=== PATIENT | female | born 1975 | race Two or more races ===

== ENCOUNTER 2017-01-27 12:57 | Emergency (ER) | payer OTHER ==
[2017-01-27 13:06] VITALS: TEMP 97.8; BMI 30.7
--- NOTE | 2017-01-27 13:54 | PDOC ---
History of Present Illness - General History Source: Patient Exam Limitations: No Limitations - History of Present Illness Initial Comments: 01/27/17 15:04 The patient is a 41 year old female with a significant past medical history of IDDM and hypertension, who presents to the ER with nausea, vomiting, and diarrhea for 12 hours. Patient states she had three episodes of nonbilious/ nonbloody vomiting of food particles. Patient also reports three episodes of diarrhea. She complains of associated epigastric pain but is not able to describe the pain. Denies fever, chills, cough Denies lightheadedness Denies headache Denies chest pain Denies hematochezia, melena, or hematemesis. <Ivis Martinez - Last Filed: 01/27/17 15:20> - General History Source: Patient, Old Records Exam Limitations: No Limitations <Maricruz Rhodes - Last Filed: 01/27/17 16:36> - General Chief Complaint: Pain Stated Complaint: VOMITING/BLOOD SUGAR PROBLEM Time Seen by Provider: 01/27/17 13:54 Past History <Ivis Martinez - Last Filed: 01/27/17 15:20> - Past Medical History Diabetes: Yes HTN: Yes - Immunization History Td Vaccination: Yes Immunization Up to Date: Yes - Psycho/Social/Smoking Cessation Hx Anxiety: No Suicidal Ideation: No Smoking Status: No Smoking History: Never smoked Years of Tobacco Use: 0 Have you smoked in the past 12 months: No Number of Cigarettes Smoked Daily: 1 Cigars Per Day: 0 Information on smoking cessation initiated: No Hx Alcohol Use: No Drug/Substance Use Hx: No Substance Use Type: None Hx Substance Use Treatment: No <Maricruz Rhodes - Last Filed: 01/27/17 16:36> - Past Medical History Allergies/Adverse Reactions: Allergies Allergy/AdvReac Type Severity Reaction Status Date / Time acetaminophen Allergy Intermediate Swelling Verified 01/27/17 13:06 Home Medications: Ambulatory Orders Gemfibrozil [Lopid -] 600 mg PO TID 01/27/17 Glipizide [Glucotrol -] 20 mg PO DAILY 01/27/17 Insulin Glargine,Hum.rec.anlog [Lantus (nf)] 50 units SQ BID 01/27/17 Metformin HCl [Glucophage -] 500 mg PO BID 01/27/17 Review of Systems - Review of Systems Able to Perform ROS?: Yes Comments:: 01/27/17 15:04 GENERAL/CONSTITUTIONAL: No fever or chills. No weakness. HEAD, EYES, EARS, NOSE AND THROAT: No change in vision. No ear pain or discharge. No sore throat. CARDIOVASCULAR: No chest pain or shortness of breath. RESPIRATORY: No cough, wheezing, or hemoptysis. GASTROINTESTINAL: (+) nausea (+) vomiting (+) diarrhea (+) abdominal pain. No constipation. GENITOURINARY: No dysuria, frequency, or change in urination. MUSCULOSKELETAL: No joint or muscle swelling or pain. No neck or back pain. SKIN: No rash NEUROLOGIC: No headache, vertigo, loss of consciousness, or change in strength/ sensation. ENDOCRINE: No increased thirst. No abnormal weight change. HEMATOLOGIC/LYMPHATIC: No anemia, easy bleeding, or history of blood clots. ALLERGIC/IMMUNOLOGIC: No hives or skin allergy. <Uts,Ivis - Last Filed: 01/27/17 15:20> *Physical Exam - Vital Signs Last Vital Signs Temp Pulse Resp BP Pulse Ox 97.8 F 82 18 131/76 100 01/27/17 13:03 01/27/17 13:03 01/27/17 13:03 01/27/17 13:03 01/27/17 13:03 - Physical Exam Comments: 01/27/17 15:05 GENERAL: Awake, alert, and fully oriented, in no acute distress HEAD: No signs of trauma EYES: PERRLA, EOMI, sclera anicteric, conjunctiva clear ENT: Auricles normal inspection, hearing grossly normal, nares patent, oropharynx clear without exudates. Moist mucosa NECK: Normal ROM, supple, no lymphadenopathy, JVD, or masses LUNGS: Breath sounds equal, clear to auscultation bilaterally. No wheezes, and no crackles HEART: Regular rate and rhythm, normal S1 and S2, no murmurs, rubs or gallops ABDOMEN: Mild epigastric tenderness on palpation. Soft, normoactive bowel sounds. No guarding, no rebound. No masses EXTREMITIES: Normal range of motion, no edema. No clubbing or cyanosis. No cords, erythema, or tenderness NEUROLOGICAL: Cranial nerves II through XII grossly intact. Normal speech, normal gait SKIN: Warm, Dry, normal turgor, no rashes or lesions noted. <Ivis Martinez - Last Filed: 01/27/17 15:20> - Vital Signs Last Vital Signs Temp Pulse Resp BP Pulse Ox 97.8 F 82 18 131/76 100 01/27/17 13:03 01/27/17 13:03 01/27/17 13:03 01/27/17 13:03 01/27/17 13:03 <Maricruz Rhodes - Last Filed: 01/27/17 16:36> ED Treatment Course - LABORATORY CBC & Chemistry Diagram: 01/27/17 14:20 01/27/17 14:20 - ADDITIONAL ORDERS Additional order review: 01/27/17 14:20 RBC 4.50 MCV 82.9 MCHC 33.8 RDW 14.3 MPV 6.9 L Neutrophils % 69.8 D Lymphocytes % 25.0 D Monocytes % 3.8 Eosinophils % 0.8 Basophils % 0.6 - Medications Given in the ED: ED Medications Discontinued Medications Generic Name Dose Route Start Last Admin Trade Name Jane PRN Reason Stop Dose Admin Ondansetron HCl 4 mg 01/27/17 14:11 01/27/17 14:22 Zofran Injection IVPUSH 01/27/17 14:12 4 mg ONCE ONE Administration <Ivis Martinez - Last Filed: 01/27/17 15:20> - LABORATORY CBC & Chemistry Diagram: 01/27/17 14:20 01/27/17 14:20 <Maricruz Rhodes - Last Filed: 01/27/17 16:36> Medical Decision Making - Medical Decision Making 01/27/17 14:12 41-year-old female with history of diabetes, status post cholecystectomy who presents to the emergency Department with complaints of epigastric pain, vomiting and diarrhea. Differential diagnosis includes but is not limited to: Pancreatitis, gastroenteritis, colitis, dehydration, DKA, uncontrolled diabetes , electrolyte abnormality, toxic/metabolic derangement. Plan: 1. Labs 2. IV fluids for hydration 3. Antiemetics 4. EKG 5. Observe and reevaluate 01/27/17 16:32 Addendum: Labs are reviewed and are noted in the EMR. EKG shows normal sinus rhythm at 70 bpm normal axis intervals and no acute ST segment changes. The patient tolerated by mouth with some nausea but no vomiting and no longer has abdominal pain. The plan is to send the patient home. Clear liquids and advance diet slowly. Follow-up with primary care physician tomorrow morning and return to the emergency department if symptoms persist, worsen, or new symptoms arise. <Maricruz Rohdes - Last Filed: 01/27/17 16:36> *DC/Admit/Observation/Transfer - Attestations Scribe Attestion: 01/27/17 15:05 Documentation prepared by Ivis Martinez, acting as medical administrative for Maricruz Rhodes MD. <Ivis Martinez - Last Filed: 01/27/17 15:20> - Discharge Dispostion Admit: No - Attestations Physician Attestion: 01/27/17 14:17 I, Dr. Maricruz Rhodes, attest that the scribes documentation that appears above has been prepared under my direction and personally reviewed by me in its entirety. I confirmed that the note above accurately reflects all work, treatment, procedures, and medical decision-making performed by me. <Maricruz Rhodes - Last Filed: 01/27/17 16:36> Diagnosis at time of Disposition: Epigastric pain, Nausea vomiting and diarrhea - Discharge Dispostion Disposition: HOME Condition at time of disposition: Stable - Referrals Referrals: Nalini Alcocer MD [Primary Care Provider] - - Patient Instructions Printed Discharge Instructions: DI for Vomiting -- Adult, Diarrhea Additional Instructions: Maintain hydration with clear liquids. Anything that you can see. You may drink. Please follow-up with your primary care physician tomorrow and return to the emergency department if your symptoms persist, worsen, or new symptoms arise.
[2017-01-27] MEDS ORDERED: SODIUM CHLORIDE 1,000 ML IV STA (14:11)
[2017-01-27] MEDS ORDERED: ONDANSETRON 4 MG/2 ML VIAL IVPUSH ONE ×2 (14:11→16:34)
[2017-01-27] MEDS ORDERED: ONDANSETRON 4 MG/2 ML VIAL ONE ×2 (14:23→17:22)
[2017-01-27 14:40] LABS: BASOPHIL 0.6 % (0-2.0); EOSINOPHIL 0.8 % (0-4.5); MCHC 33.8 g/dl (32.0-36.0); MEAN CELL VOLUME 82.9 fl (80-96); MEAN PLT VOLUME 6.9 fl (7.5-11.1); NEUTROPHILS 69.8 % (42.8-82.8); PLATELET COUNT 250 K/MM3 (134-434); RDW 14.3 % (11.6-15.6); WHITE BLOOD COUNT 8.6 K/mm3 (4.0-10.0)
[2017-01-27 15:03] LABS: ALBUMIN 3.5 g/dl (3.4-5.0); ALK PHOS 114 U/L (45-117); ANION GAP 11 (8-16); BILIRUBIN,TOTAL 0.6 mg/dL (0.2-1.0); CALCIUM 8.8 mg/dL (8.5-10.1); CO2 26 mmol/L (21-32); COCKROFT - GAULT 128.5115; CREATININE 0.7 mg/dL (0.55-1.02); GLUCOSE,RANDOM 274 mg/dL (74-106); PHOSPHOROUS 2.7 mg/dL (2.5-4.9); SGOT/AST 19 U/L (15-37); SGPT/ALT 34 U/L (12-78); TOT PROT 6.7 g/dl (6.4-8.2); TROPONIN I < 0.02 ng/ml (0.00-0.05)
[2017-01-27 15:26] LABS: ACETONE SERUM NEGATIVE (NEGATIVE)
[2017-01-27 17:28] VITALS: BP 122/60; PULSE 60
--- NOTE | 2017-01-28 17:13 | EKG ---
Test Reason : Blood Pressure : / mmHG Vent. Rate : 072 BPM Atrial Rate : 072 BPM P-R Int : 152 ms QRS Dur : 078 ms QT Int : 450 ms P-R-T Axes : 033 017 016 degrees QTc Int : 492 ms NORMAL SINUS RHYTHM LOW VOLTAGE QRS PROLONGED QT ABNORMAL ECG WHEN COMPARED WITH ECG OF 09-FEB-2014 10:24, NO SIGNIFICANT CHANGE WAS FOUND Confirmed by KARTIK CHAVARRIA MD ([id number]) on 01/28/2017 5:13:31 PM Referred By: Confirmed By:KARTIK CHAVARRIA MD
== END 2017-01-27 17:29 | disposition home or self-care (01) ==
LOC: JER 12:57
PROC: 3E033GC Introduction of Other Therapeutic Substance into Peripheral Vein, Percutaneous Approach (ICD-10-PCS; principal; 2017-01-27)
DX: R10.13 Epigastric pain (principal); R11.2 Nausea with vomiting, unspecified; E11.9 Type 2 diabetes mellitus without complications; Z79.4 Long term (current) use of insulin; Z79.84 Long term (current) use of oral hypoglycemic drugs; I10 Essential (primary) hypertension
CPT/HCPCS: 36415; 71010-TC; 80053; 82009; 82550; 82553; 83690; 83735; 84100; 84484; 85025; 93005; 93010; 96374; 96376; 99283-25

== ENCOUNTER 2017-06-19 09:50 | Emergency (ER) | payer OTHER ==
[2017-06-19 09:59] VITALS: BP 142/90; PULSE 73; TEMP 98.2; BMI 30.5
--- NOTE | 2017-06-19 10:13 | PDOC ---
History of Present Illness - General Chief Complaint: Chest Pain Stated Complaint: CHEST PAIN/EPIGASTRIC Time Seen by Provider: 06/19/17 10:09 - History of Present Illness Initial Comments: 06/19/17 10:25 CC: 2 day h/o chest pain Patient is a 41 y.o. female with a PMH of HTN and IDDM who presents c/o of substernal, precordial, chest tightness that is constant, non-positional and not associated with food. Patient denies any triggering or relieving factors and denies any associated shortness of breath though patient does note she feels as if she is having trouble filling her lungs with air. Patient further denies any nausea, vomiting, lightheadnedness or diaphoresis. Allergies: Acetaminophen Surgical: Partial Hysterectomy Social: 5-6 cigarettes daily; 3-4 drinks weekly, denies recreational drug use PMD: Dr. Jacinda Barrera Past History - Past Medical History Allergies/Adverse Reactions: Allergies Allergy/AdvReac Type Severity Reaction Status Date / Time acetaminophen Allergy Intermediate Swelling Verified 06/20/17 15:08 Home Medications: Ambulatory Orders Gemfibrozil [Lopid -] 600 mg PO TID 01/27/17 Glipizide [Glucotrol -] 20 mg PO DAILY 01/27/17 Insulin Glargine,Hum.rec.anlog [Lantus (nf)] 50 units SQ BID 01/27/17 Metformin HCl [Glucophage -] 500 mg PO BID 01/27/17 Famotidine [Pepcid -] 40 mg PO DAILY #14 tablet 06/19/17 Diabetes: Yes HTN: Yes - Immunization History Td Vaccination: Yes Immunization Up to Date: Yes - Suicide/Smoking/Psychosocial Hx Smoking Status: No Smoking History: Never smoked Years of Tobacco Use: 0 Have you smoked in the past 12 months: No Number of Cigarettes Smoked Daily: 1 Cigars Per Day: 0 Hx Alcohol Use: No Drug/Substance Use Hx: No Substance Use Type: None Hx Substance Use Treatment: No *Physical Exam - Vital Signs Last Vital Signs Temp Pulse Resp BP Pulse Ox 98.2 F 73 19 142/90 100 06/19/17 09:56 06/19/17 09:56 06/19/17 09:56 06/19/17 09:56 06/19/17 09:56 ED Treatment Course - LABORATORY CBC & Chemistry Diagram: 06/19/17 10:48 06/19/17 10:48 Medical Decision Making - Medical Decision Making 06/19/17 10:32 Patient is a 41 y.o. female who present c/o 2 day h/o substernal and anterior precordial chest pain. Initial DDx includes ACS (possible posterior NC) vs. GERD vs. Muskoskeletal PLAN: 1. CBC, CMP 2. Troponin x2 2. CXR 3. UA (Patient has CVA tenderness on PE -but denies SiSx) EKG shows NSR with no ST elevations/depressions, normal [place], no QT prolongation. CBC, BMP within normal limits excepting BS 306. UA shows no hematuria, nitrite negative, 3+ glucose. Patient symptomatically improved with Mylanta/ Zofran. Discharged home with follow-up with PCP. *DC/Admit/Observation/Transfer Diagnosis at time of Disposition: GERD (gastroesophageal reflux disease) - Discharge Dispostion Disposition: HOME Condition at time of disposition: Good Admit: No - Prescriptions Prescriptions: Famotidine [Pepcid -] 40 mg PO DAILY #14 tablet - Referrals Referrals: Jacinda Barrera MD [Primary Care Provider] - - Patient Instructions Printed Discharge Instructions: DI for Atypical Chest Pain Additional Instructions: Please follow up with your PCP in the next 7-10 days. Please return to the Emergency Department should your symptoms worsen.
[2017-06-19] MEDS ORDERED: MAG HYDROX/AL HYDROX/SIMETH 30 ML UNIT-DOSE CUP PO ONE (10:48)
--- NOTE | 2017-06-19 10:48 | PDOC ---
Attending Attestation - HPI HPI: 06/19/17 11:41 Pt is a 41 yo F with a PMHx of IDDM, HTN who presents to the ED with 2 day hx of epigastric pain. Patient reports sudden onset of pain while sitting on the couch. Patient also reports sudden chest tightness and SOB that radiates to her neck. Patient denies any previous hx of GERD, sour or metallic taste, cough, runny nose. Patient never experienced this pain before and presents to the ED for further evaluation. PSHx: Hysterectomy, C section - Physicial Exam PE: 06/19/17 11:41 GENERAL: Awake, alert, and fully oriented, in no acute distress HEAD: No signs of trauma EYES: PERRLA, EOMI, sclera anicteric, conjunctiva clear ENT: Auricles normal inspection, hearing grossly normal, nares patent, oropharynx clear without exudates. Moist mucosa NECK: Normal ROM, supple, no lymphadenopathy, JVD, or masses LUNGS: Breath sounds equal, clear to auscultation bilaterally. No wheezes, and no crackles HEART: +anterior chest wall tenderness. Regular rate and rhythm, normal S1 and S2, no murmurs, rubs or gallops ABDOMEN: Soft, nontender, normoactive bowel sounds. No guarding, no rebound. No masses EXTREMITIES: Normal range of motion, no edema. No clubbing or cyanosis. No cords, erythema, or tenderness NEUROLOGICAL: Cranial nerves II through XII grossly intact. Normal speech, normal gait SKIN: Warm, Dry, normal turgor, no rashes or lesions noted. - Medical Decision Making 06/19/17 11:41 Documentation prepared by Sobeida Sainz, acting as medical delivery technician for Allie De Santiago DO, MD/. <Sobeida Sainz - Last Filed: 06/19/17 11:48> - Resident Resident Name: Ange Martin - ED Attending Attestation I have performed the following: I have examined & evaluated the patient, The case was reviewed & discussed with the resident, I agree w/resident's findings & plan, Exceptions are as noted - Medical Decision Making 06/19/17 10:48 I, Dr. Allie De Santiago DO, attest that this document has been prepared under my direction and personally reviewed by me in its entirety. I further attest, that it accurately reflects all work, treatment, procedures and medical decision -making performed by me. 06/19/17 12:10 a/p: 41yo female with cp x 2 days assoc with SOB and epigastric pain -risk factors for CAD, will check trops despite atypical cp -cxr -labs -ekg -reassess -does have a GERD component to pain 06/19/17 12:23 pt feeling much better. No pain at this time. Discussed need for repeat trop and ekg in 1 hour. 06/19/17 14:45 repeat trop and ekg negative. stable for d/c to home. <Allie De Santiago - Last Filed: 06/19/17 14:45> Heart Score/ECG Review - History History: Slightly suspicious - Electrocardiogram EKG: Non specific repolarization disturbance - Age Age: </= 45 - Risk Factors Risk Factors Heart Score: Yes Hx Hypertension, Yes Hx Diabetes Based on the list above the patient has:: 1-2 risk factors - Troponin Troponin: </= normal limit - Score Heart Score - Total: 2 - ECG Intrepretation Comment:: 06/19/17 12:10 sinus at 72, nl axis, t wave inversions III, nonspecific, q waves anterior leads that are age indeterminate <Allie De Santiago - Last Filed: 06/19/17 14:45>
[2017-06-19] MEDS ORDERED: SODIUM CHLORIDE 0.9% 1000 ML INFUS.BAG IV ONE (10:49)
[2017-06-19] MEDS ORDERED: ONDANSETRON 4 MG/2 ML VIAL IVPUSH ONE (10:49)
[2017-06-19] MEDS ORDERED: KETOROLAC TROMETHAMINE 30 MG/1 ML VIAL IVPUSH ONE (10:49)
[2017-06-19] MEDS ORDERED: ONDANSETRON 4 MG/2 ML VIAL ONE (11:00)
[2017-06-19] MEDS ORDERED: MAG HYDROX/AL HYDROX/SIMETH 30 ML UNIT-DOSE CUP ONE (11:00)
[2017-06-19] MEDS ORDERED: KETOROLAC TROMETHAMINE 30 MG/1 ML VIAL ONE (11:00)
[2017-06-19 11:18] LABS: BASOPHIL 1.2 % (0-2.0); EOSINOPHIL 0.7 % (0-4.5); MCH 28.5 pg (25.7-33.7); MCHC 33.5 g/dl (32.0-36.0); MEAN CELL VOLUME 84.9 fl (80-96); MEAN PLT VOLUME 7.7 fl (7.5-11.1); NEUTROPHILS 67.8 % (42.8-82.8); PLATELET COUNT 266 K/MM3 (134-434); WHITE BLOOD COUNT 9.5 K/mm3 (4.0-10.0)
[2017-06-19 11:24] LABS: URINE APPEARANCE SLCLOUDY; URINE BILIRUBIN NEGATIVE (NEGATIVE); URINE BLOOD NEGATIVE (NEGATIVE); URINE COLOR LTYELLOW; URINE GLUCOSE (UA) 3+ (NEGATIVE); URINE KETONE NEGATIVE (NEGATIVE); URINE LEUK ESTERASE NEGATIVE (NEGATIVE); URINE NITRITE NEGATIVE (NEGATIVE); URINE PROTEIN NEGATIVE (NEGATIVE); URINE UROBILINOGEN NEGATIVE mg/dL (0.2-1.0)
[2017-06-19 11:53] LABS: ALBUMIN 3.7 g/dl (3.4-5.0); ANION GAP 8 (8-16); CALCIUM 9.3 mg/dL (8.5-10.1); CO2 25 mmol/L (21-32); CREATININE 0.7 mg/dL (0.55-1.02); SGPT/ALT 37 U/L (12-78)
[2017-06-19 11:58] LABS: ALK PHOS 129 U/L (45-117); BILIRUBIN,TOTAL 0.7 mg/dL (0.2-1.0); TOT PROT 7.3 g/dl (6.4-8.2); TROPONIN I < 0.02 ng/ml (0.00-0.05)
[2017-06-19 12:03] LABS: MAGNESIUM 2.2 mg/dL (1.8-2.4); SGOT/AST 26 U/L (15-37)
[2017-06-19 12:04] LABS: GLUCOSE,RANDOM 306 mg/dL (74-106)
[2017-06-19 12:23] LABS: CPK 131 IU/L (26-192)
[2017-06-19] MEDS ORDERED: INSULIN REGULAR HUMAN 100 UNITS/ML *VIAL SQ ONE (13:14)
[2017-06-19 14:26] LABS: CPK 103 IU/L (26-192); TROPONIN I < 0.02 ng/ml (0.00-0.05)
--- NOTE | 2017-06-19 15:26 | EKG ---
Test Reason : Blood Pressure : / mmHG Vent. Rate : 072 BPM Atrial Rate : 072 BPM P-R Int : 150 ms QRS Dur : 088 ms QT Int : 412 ms P-R-T Axes : 018 000 010 degrees QTc Int : 451 ms NORMAL SINUS RHYTHM LOW VOLTAGE QRS CANNOT RULE OUT ANTERIOR INFARCT , AGE UNDETERMINED ABNORMAL ECG WHEN COMPARED WITH ECG OF 27-JAN-2017 14:54, NO SIGNIFICANT CHANGE WAS FOUND Confirmed by SNAJANA CARVER, PENG ([id number]) on 06/19/2017 3:25:56 PM Referred By: Confirmed By:PENG ALLAN MD
--- NOTE | 2017-06-20 09:42 | EKG ---
Test Reason : Blood Pressure : / mmHG Vent. Rate : 072 BPM Atrial Rate : 072 BPM P-R Int : 166 ms QRS Dur : 078 ms QT Int : 418 ms P-R-T Axes : 015 005 014 degrees QTc Int : 457 ms NORMAL SINUS RHYTHM LOW VOLTAGE QRS POOR DATA QUALITY, INTERPRETATION MAY BE ADVERSELY AFFECTED WHEN COMPARED WITH ECG OF 19-JUN-2017 10:06, NO SIGNIFICANT CHANGE WAS FOUND Confirmed by ADAN HARRY MD ([id number]) on 06/20/2017 9:42:18 AM Referred By: Confirmed By:ADAN HARRY MD
== END 2017-06-19 15:49 | disposition home or self-care (01) ==
LOC: JER 09:50
PROC: 3E013VG Introduction of Insulin into Subcutaneous Tissue, Percutaneous Approach (ICD-10-PCS; principal; 2017-06-19)
DX: K21.9 Gastro-esophageal reflux disease without esophagitis (principal); I10 Essential (primary) hypertension; E11.9 Type 2 diabetes mellitus without complications; Z79.4 Long term (current) use of insulin; Z79.84 Long term (current) use of oral hypoglycemic drugs
CPT/HCPCS: 36415; 71020-TC; 80053; 81003; 83690; 83735; 84484; 84703; 85025; 93005; 93010; 96372; 99285-25

== ENCOUNTER 2017-06-20 14:59 | Emergency (ER) | payer OTHER ==
[2017-06-20 15:08] VITALS: BP 133/100; PULSE 96; TEMP 98.5; BMI 30.5
--- NOTE | 2017-06-20 15:28 | PDOC ---
History of Present Illness - General Chief Complaint: Pain Stated Complaint: CHEST PAIN, ABD PAIN Time Seen by Provider: 06/20/17 15:17 History Source: Patient - History of Present Illness Initial Comments: 06/20/17 15:36 Patient is a 41 y.o. female with a PMH of HTN and IDDM as well as recent (06/19 ) evaluation at our facility. Who presents today with a continued c/o of substernal squeezing chest pain that today (not yesterday) patient notes is post prandial. Patient continues to deny any pressure-like chest pain, shortness of breath, diaphoresis or lightheadedness. Of note, patient's Troponin was (-) x2 yesterday. Allergies: Acetaminophen Surgical: Partial Hysterectomy Social: 5-6 cigarettes daily; 3-4 drinks weekly, denies recreational drug use PMD: Dr. Jacinda Barrera Past History - Past Medical History Allergies/Adverse Reactions: Allergies Allergy/AdvReac Type Severity Reaction Status Date / Time acetaminophen Allergy Intermediate Swelling Verified 06/20/17 15:08 Home Medications: Ambulatory Orders Gemfibrozil [Lopid -] 600 mg PO TID 01/27/17 Glipizide [Glucotrol -] 20 mg PO DAILY 01/27/17 Insulin Glargine,Hum.rec.anlog [Lantus (nf)] 50 units SQ BID 01/27/17 Metformin HCl [Glucophage -] 500 mg PO BID 01/27/17 Famotidine [Pepcid -] 40 mg PO DAILY #14 tablet 06/19/17 Omeprazole 20 mg PO DAILY #10 capsule. 06/20/17 Sucralfate [Carafate -] 1 gm PO BID #20 tablet 06/20/17 Diabetes: Yes HTN: Yes - Surgical History Abdominal Surgery: Yes - Immunization History Td Vaccination: Yes Immunization Up to Date: Yes - Suicide/Smoking/Psychosocial Hx Smoking Status: No Smoking History: Never smoked Years of Tobacco Use: 0 Have you smoked in the past 12 months: No Number of Cigarettes Smoked Daily: 1 Cigars Per Day: 0 Hx Alcohol Use: No Drug/Substance Use Hx: No Substance Use Type: None Hx Substance Use Treatment: No Review of Systems - Review of Systems Constitutional: No: Chills, Fever Respiratory: No: Shortness of Breath Cardiac (ROS): Yes: Chest Pain (Post-prandial, "squeezing" substernal chest pain ). No: Lightheadedness, Palpitations ABD/GI: No: Constipated, Diarrhea, Nausea, Vomiting All Other Systems: Reviewed and Negative *Physical Exam - Vital Signs Last Vital Signs Temp Pulse Resp BP Pulse Ox 98.5 F 96 H 18 133/100 99 06/20/17 15:03 06/20/17 15:03 06/20/17 15:03 06/20/17 15:03 06/20/17 15:03 - Physical Exam General Appearance: Yes: Nourished, Obese Neck: positive: Trachea midline, Supple Respiratory/Chest: positive: Lungs Clear, Normal Breath Sounds. negative: Chest Tender Cardiovascular: positive: Regular Rhythm, Regular Rate, S1, S2 Gastrointestinal/Abdominal: positive: Normal Bowel Sounds, Soft Integumentary: positive: Normal Color, Dry, Warm Neurologic: positive: Fully Oriented, Alert Medical Decision Making - Medical Decision Making 06/20/17 15:46 Patient is 41 y.o. female who presents to our ED this afternoon c/o chest pain- - patient was evaluated yesterday (06/19) at which time ACS was ruled out and patient symptomatically improved with Maalox/IVF. Today patient notes her pain is post-prandial. Initial DDX includes GERD vs. Bilary Colic PLAN: 1. Maalox/PPI/Sulfacrate 06/20/17 15:51 Patient significantly improved following GI cocktail. Patient discharged with prescription for PPI/Sulfacrate and instruction to follow up with GI for evaluation of possible PUD. *DC/Admit/Observation/Transfer Diagnosis at time of Disposition: GERD (gastroesophageal reflux disease), Hx of gastroesophageal reflux (GERD) - Discharge Dispostion Admit: No - Prescriptions Prescriptions: Sucralfate [Carafate -] 1 gm PO BID #20 tablet Omeprazole 20 mg PO DAILY #10 capsule.dr - Referrals Referrals: Sathish Ewing MD [Primary Care Provider] - Peter Bonilla MD [Staff Physician] - - Patient Instructions Additional Instructions: Please call Dr. Bonilla (contact information provided in your discharge papers) for an appointment for evaluation of your pain. Please also follow up with your primary care doctor in the next 7 days. A prescription has been sent to your pharmacy. Please return to the Emergency Department should your symptoms worsen.
--- NOTE | 2017-06-20 15:31 | PDOC ---
Attending Attestation - HPI HPI: 06/20/17 16:10 41 yr old female, with significant pmhx of HTN and IDDM who was seen in the ED yesterday for GERD with a prescription for Pepcid. She states that she has persistent nonradiating, substernal chest pain that feels like burning and is associated with food. The last meal she had was [place] toast this morning. Allergies: acetaminophen Social hx: 5-6 cigarettes daily, 3-4 alcoholic drinks weekly. PCP: Dr. Bibi Barrera - Physicial Exam PE: 06/20/17 16:10 Constitutional: Awake, alert, oriented. No acute distress. Head: Normocephalic. Atraumatic Eyes: PERRL. EOMI. Conjunctivae are not pale. ENT: Mucous membranes are moist and intact. Posterior pharynx without exudates or erythema. Uvula midline. Neck: Supple. Full ROM. No lymphadenopathy. Cardiovascular: Regular rate. Regular rhythm. S1, S2 regular. Distal pulses are 2+ and symmetric. Pulmonary/Chest: No evidence of respiratory distress. Clear to auscultation bilaterally No wheezing, rales or rhonchi. Abdominal: +epigastric tenderness to palpation. Soft and non-distended. No rebound, guarding or rigidity. No organomegaly. No palpable masses. Good bowel sounds. Back: No CVA tenderness. Musculoskeletal: No edema. No cyanosis. No clubbing. Full range of motion in all extremities. Nocalf tenderness. Radial/pedal pulses are intact and 2+ bilaterally Skin: Skin is warm and dry. No petechiae. No purpura. Neurological: Alert and oriented to person, place, and time. Cranial nerves II -XII are grossly intact. Normal speech. Strength is grossly symmetric. No sensory deficits. Psychiatric: Good eye contact. Normal interaction, affect and behavior. <Aspen Neil - Last Filed: 06/20/17 16:10> - Resident Resident Name: Ange Martin - ED Attending Attestation I have performed the following: I have examined & evaluated the patient, The case was reviewed & discussed with the resident, I agree w/resident's findings & plan, Exceptions are as noted - Medical Decision Making 06/20/17 15:31 I, Dr. Allie De Santiago, DO, attest that this document has been prepared under my direction and personally reviewed by me in its entirety. I further attest, that it accurately reflects all work, treatment, procedures and medical decision -making performed by me. 06/20/17 16:46 41yo female with epigastric burning through her chest and now with sour taste in back of mouth -ekg nonacute, trops negative yesterday -better with GI meds yesterday -epigastric pain worse after eating breakfast ([place] toast) -will add carafate to meds -pt will need GI follow up <Allie De Santiago - Last Filed: 06/20/17 16:48> Heart Score/ECG Review - ECG Intrepretation Comment:: 06/20/17 16:47 sinus at 88, nl axis, nl interval, no changes from 2 ekg yesterday <Allie De Santiago - Last Filed: 06/20/17 16:48>
[2017-06-20] MEDS ORDERED: PANTOPRAZOLE 40 MG TABLET (FP) PO ONE (15:49)
[2017-06-20] MEDS ORDERED: MAG HYDROX/AL HYDROX/SIMETH 355 ML ORAL.SUSP PO ONE (15:49)
[2017-06-20] MEDS ORDERED: SUCRALFATE 1 GM/10 ML UNIT DOSE CUPS PO ONE (15:57)
[2017-06-20] MEDS ORDERED: PANTOPRAZOLE 40 MG TABLET (FP) ONE (16:07)
[2017-06-20] MEDS ORDERED: SUCRALFATE 1 GM TABLET (FP) ONE (16:07)
[2017-06-20] MEDS ORDERED: MAG HYDROX/AL HYDROX/SIMETH 30 ML UNIT-DOSE CUP ONE (16:07)
--- NOTE | 2017-06-21 19:19 | EKG ---
Test Reason : Blood Pressure : / mmHG Vent. Rate : 088 BPM Atrial Rate : 088 BPM P-R Int : 154 ms QRS Dur : 084 ms QT Int : 384 ms P-R-T Axes : 036 -06 013 degrees QTc Int : 464 ms NORMAL SINUS RHYTHM LOW VOLTAGE QRS CANNOT RULE OUT ANTERIOR INFARCT , AGE UNDETERMINED ABNORMAL ECG WHEN COMPARED WITH ECG OF 19-JUN-2017 13:44, MINIMAL CRITERIA FOR ANTERIOR INFARCT ARE NOW PRESENT REPEAT EKG IF CLINICALLY INDICATED Confirmed by ORALIA BARBA MD ([id number]) on 06/21/2017 7:18:32 PM Referred By: Confirmed By:ORALIA BARBA MD
== END 2017-06-20 17:21 | disposition home or self-care (01) ==
LOC: JER 14:59
DX: K21.9 Gastro-esophageal reflux disease without esophagitis (principal); I10 Essential (primary) hypertension; E11.9 Type 2 diabetes mellitus without complications
CPT/HCPCS: 93005; 93010; 99283-25

== ENCOUNTER 2017-10-19 22:28 | Emergency (ER) | payer OTHER ==
[2017-10-19 22:44] VITALS: TEMP 97.9; BMI 29.8
[2017-10-19] MEDS ORDERED: SODIUM CHLORIDE 0.9% 500 ML INFUS.BAG IV ONE (23:31)
[2017-10-19] MEDS ORDERED: ONDANSETRON 4 MG/2 ML VIAL IVPB ONE (23:31)
--- NOTE | 2017-10-19 23:31 | PDOC ---
History of Present Illness - General History Source: Patient Exam Limitations: No Limitations - History of Present Illness Initial Comments: 10/20/17 01:24 Patient is a 42 year old female with a significant past medical history of HTN, Hx of fibroids, and Diabetes (insulin dependent) who presents to the ED with complaints of nausea/vomiting that began yesterday afternoon. Patient reports experiencing sudden onset of nausea and vomiting yesterday that has shown no signs of subsiding. She reports experiencing diarrhea secondary to abdominal pain as well as subjective fever. Patient reports getting flu shot this winter. Denies chest pain, Sob. Denies chills, coughing, Denies contact with sick individuals, out of state travelling. Denies any other symptoms. Allergies: Acetaminophen Social history: 5-6 cigarettes daily; 3-4 drinks weekly, denies recreational drug use Surgical history: Partial Hysterectomy PMD: Dr. Jacinda Barrera <Moises Pulilam - Last Filed: 10/20/17 01:24> <Beata Green - Last Filed: 10/20/17 06:11> - General Chief Complaint: Nausea/Vomiting Stated Complaint: VOMITING Time Seen by Provider: 10/19/17 23:23 Past History <Moises Pulliam - Last Filed: 10/20/17 01:24> - Past Medical History Diabetes: Yes HTN: Yes - Surgical History Abdominal Surgery: Yes - Immunization History Td Vaccination: Yes Immunization Up to Date: Yes - Suicide/Smoking/Psychosocial Hx Smoking Status: No Smoking History: Never smoked Years of Tobacco Use: 0 Have you smoked in the past 12 months: No Number of Cigarettes Smoked Daily: 1 Cigars Per Day: 0 Hx Alcohol Use: No Drug/Substance Use Hx: No Substance Use Type: None Hx Substance Use Treatment: No <Beata Green - Last Filed: 10/20/17 06:11> - Past Medical History Allergies/Adverse Reactions: Allergies Allergy/AdvReac Type Severity Reaction Status Date / Time acetaminophen Allergy Intermediate Swelling Verified 10/19/17 22:44 Home Medications: Ambulatory Orders Gemfibrozil [Lopid -] 600 mg PO TID 01/27/17 Glipizide [Glucotrol -] 20 mg PO DAILY 01/27/17 Insulin Glargine,Hum.rec.anlog [Lantus (nf)] 50 units SQ BID 01/27/17 Metformin HCl [Glucophage -] 500 mg PO BID 01/27/17 Famotidine [Pepcid -] 40 mg PO DAILY #14 tablet 06/19/17 Omeprazole 20 mg PO DAILY #10 capsule. 06/20/17 Sucralfate [Carafate -] 1 gm PO BID #20 tablet 06/20/17 Review of Systems - Review of Systems Able to Perform ROS?: Yes Comments:: 10/20/17 01:24 GENERAL/CONSTITUTIONAL: No fever or chills. No weakness. HEAD, EYES, EARS, NOSE AND THROAT: No change in vision. No ear pain or discharge. No sore throat. CARDIOVASCULAR: No chest pain or shortness of breath. RESPIRATORY: No cough, wheezing, or hemoptysis. GASTROINTESTINAL: +Nausea, +vomiting. +abdominal pain. No diarrhea or constipation. GENITOURINARY: No dysuria, frequency, or change in urination. MUSCULOSKELETAL: No joint or muscle swelling or pain. No neck or back pain. SKIN: No rash NEUROLOGIC: No headache, vertigo, loss of consciousness, or change in strength/ sensation. ENDOCRINE: No increased thirst. No abnormal weight change. HEMATOLOGIC/LYMPHATIC: No anemia, easy bleeding, or history of blood clots. ALLERGIC/IMMUNOLOGIC: No hives or skin allergy. All Other Systems: Reviewed and Negative <Moises Pulliam - Last Filed: 10/20/17 01:24> *Physical Exam - Vital Signs Last Vital Signs Temp Pulse Resp BP Pulse Ox 97.9 F 113 H 22 144/100 100 10/19/17 22:37 10/19/17 22:37 10/19/17 22:37 10/19/17 22:37 10/19/17 22:37 - Physical Exam Comments: 10/20/17 01:25 GENERAL: Awake, alert, and fully oriented, in no acute distress HEAD: No signs of trauma EYES: PERRLA, EOMI, sclera anicteric, conjunctiva clear ENT: Auricles normal inspection, hearing grossly normal, nares patent, oropharynx clear without exudates. Moist mucosa NECK: Normal ROM, supple, no lymphadenopathy, JVD, or masses LUNGS: Breath sounds equal, clear to auscultation bilaterally. No wheezes, and no crackles HEART: Regular rate and rhythm, normal S1 and S2, no murmurs, rubs or gallops ABDOMEN: +Diffuse abdominal tenderness. +Gassy. Soft, nontender, normoactive bowel sounds. No guarding, no rebound. No masses EXTREMITIES: Normal range of motion, no edema. No clubbing or cyanosis. No cords, erythema, or tenderness NEUROLOGICAL: Cranial nerves II through XII grossly intact. Normal speech, normal gait SKIN: Warm, Dry, normal turgor, no rashes or lesions noted. <Moises Pulliam - Last Filed: 10/20/17 01:24> - Vital Signs Last Vital Signs Temp Pulse Resp BP Pulse Ox 97.9 F 113 H 22 144/100 100 10/19/17 22:37 10/19/17 22:37 10/19/17 22:37 10/19/17 22:37 10/19/17 22:37 <Beata Green - Last Filed: 10/20/17 06:11> ED Treatment Course - LABORATORY CBC & Chemistry Diagram: 10/19/17 23:50 10/19/17 23:50 - ADDITIONAL ORDERS Additional order review: Laboratory Results 10/19/17 23:50 Sodium 133 L Potassium 4.7 Chloride 96 L Carbon Dioxide 28 Anion Gap 9 BUN 7 Creatinine 0.5 L Creat Clearance w eGFR > 60 Random Glucose 313 H* Calcium 9.2 Total Bilirubin 0.8 AST 18 ALT 30 Alkaline Phosphatase 106 Total Protein 7.2 Albumin 3.8 10/19/17 23:50 RBC 5.07 MCV 85.0 MCHC 33.5 RDW 14.8 MPV 6.5 L D Neutrophils % 73.5 Lymphocytes % 18.5 D Monocytes % 6.8 Eosinophils % 0.4 Basophils % 0.8 - Medications Given in the ED: ED Medications Discontinued Medications Generic Name Dose Route Start Last Admin Trade Name Freq PRN Reason Stop Dose Admin Morphine Sulfate 1 mg 10/19/17 23:35 10/19/17 23:57 Morphine Injection - IVPUSH 10/19/17 23:36 1 mg ONCE ONE Administration Ondansetron HCl 4 mg 10/19/17 23:31 10/19/17 23:57 Zofran Injection IVPB 10/19/17 23:32 4 mg ONCE ONE Administration Sodium Chloride 1,000 ml 10/19/17 23:31 10/19/17 23:57 Normal Saline - IV 10/19/17 23:32 1,000 ml ONCE ONE Administration <Moises Pulliam - Last Filed: 10/20/17 01:24> - LABORATORY CBC & Chemistry Diagram: 10/19/17 23:50 10/19/17 23:50 <Beata Green - Last Filed: 10/20/17 06:11> Medical Decision Making - Medical Decision Making 10/20/17 06:10 Pt comes with viral gastroenteritis and elevated blood sugar/poorly controlled DM. She has moderate abd pain, but her exam is normal, and she feels better after treatment in the ER with NSS and with regular insulin. Pt will be sent home with her family. <Beata Green - Last Filed: 10/20/17 06:11> *DC/Admit/Observation/Transfer - Attestations Scribe Attestion: 10/20/17 01:25 Documentation prepared by Moises Pulliam, acting as medical office supervisor for Beata Green MD/DO. <Moises Pulliam - Last Filed: 10/20/17 01:24> - Discharge Dispostion Admit: No <Beata Green - Last Filed: 10/20/17 06:11> Diagnosis at time of Disposition: Viral gastroenteritis - Discharge Dispostion Disposition: HOME Condition at time of disposition: Stable - Referrals Referrals: Jacinda Barrera MD [Primary Care Provider] - - Patient Instructions Printed Discharge Instructions: DI for Viral Gastroenteritis -- Adult - Post Discharge Activity
[2017-10-19] MEDS ORDERED: morphine CARPU-JECT 2 MG/1 ML DISP.SYRIN IVPUSH ONE (23:35)
[2017-10-19] MEDS ORDERED: MORPHINE SULFATE 10 MG/1 ML *VIAL ONE (23:42)
[2017-10-19] MEDS ORDERED: ONDANSETRON 4 MG/2 ML VIAL ONE (23:44)
[2017-10-20 00:01] LABS: BASO % 0.8 % (0-2.0); EOS % 0.4 % (0-4.5); HEMATOCRIT 43.1 % (32.4-45.2); HEMOGLOBIN 14.4 GM/dL (10.7-15.3); LYMPH % 18.5 % (8-40); MCH 28.4 pg (25.7-33.7); MCHC 33.5 g/dl (32.0-36.0); MEAN PLT VOLUME 6.5 fl (7.5-11.1); MONO % 6.8 % (3.8-10.2); NEUT % 73.5 % (42.8-82.8); PLATELET COUNT 288 K/MM3 (134-434); RBC 5.07 M/mm3 (3.60-5.2); RDW 14.8 % (11.6-15.6); WHITE BLOOD COUNT 15.5 K/mm3 (4.0-10.0)
[2017-10-20 01:01] LABS: ALBUMIN 3.8 g/dl (3.4-5.0); ALK PHOS 106 U/L (45-117); ANION GAP 9 (8-16); BILIRUBIN,TOTAL 0.8 mg/dL (0.2-1.0); BLOOD UREA NITROGEN 7 mg/dL (7-18); CALCIUM 9.2 mg/dL (8.5-10.1); CHLORIDE 96 mmol/L (98-107); CO2 28 mmol/L (21-32); CREATININE 0.5 mg/dL (0.55-1.02); POTASSIUM 4.7 mmol/L (3.5-5.1); SGOT/AST 18 U/L (15-37); SGPT/ALT 30 U/L (12-78); SODIUM 133 mmol/L (136-145); TOT PROT 7.2 g/dl (6.4-8.2)
[2017-10-20 01:04] LABS: GLUCOSE,RANDOM 313 mg/dL (74-106)
[2017-10-20] MEDS ORDERED: INSULIN REGULAR HUMAN 100 UNITS/ML *VIAL SQ ONE (01:10)
[2017-10-20] MEDS ORDERED: INSULIN REGULAR HUMAN 100 UNITS/ML *VIAL ONE (01:23)
[2017-10-20 01:51] VITALS: BP 133/100; PULSE 98
== END 2017-10-20 01:51 | disposition home or self-care (01) ==
LOC: JER 22:28
PROC: 3E013VG Introduction of Insulin into Subcutaneous Tissue, Percutaneous Approach (ICD-10-PCS; principal; 2017-10-19)
PROC: 3E033GC Introduction of Other Therapeutic Substance into Peripheral Vein, Percutaneous Approach (ICD-10-PCS; 2017-10-19)
DX: A08.4 Viral intestinal infection, unspecified (principal); B97.89 Other viral agents as the cause of diseases classified elsewhere
CPT/HCPCS: 36415; 80053; 84703; 85025; 96372; 96374; 96375; 99283-25

== ENCOUNTER 2017-11-15 20:38 | Emergency (ER) | payer OTHER ==
[2017-11-15 20:54] VITALS: TEMP 97.7; BMI 29.4
--- NOTE | 2017-11-15 21:09 | PDOC ---
History of Present Illness - General Chief Complaint: Back Pain Stated Complaint: BACK PAIN Time Seen by Provider: 11/15/17 21:08 - History of Present Illness Initial Comments: 11/15/17 21:09 Ms. Frank is a 42 yo female w/ pmh of HTN, fibroids, and IDDM who presents complaining of a 1 hour history of severe midline back pain with sudden onset. She reports that she was sitting when the pain started suddenly, prompting her visit to the ER. The patient denies chest pain, shortness of breath, headache and dizziness. Denies fever, chills, nausea, vomit, diarrhea and constipation. Denies dysuria, frequency, urgency and hematuria. Allergies: Acetaminophen (causes facial swelling) Past History - Past Medical History Allergies/Adverse Reactions: Allergies Allergy/AdvReac Type Severity Reaction Status Date / Time acetaminophen Allergy Intermediate Swelling Verified 11/15/17 20:47 Home Medications: Ambulatory Orders Glipizide [Glucotrol -] 20 mg PO DAILY 01/27/17 Insulin Glargine,Hum.rec.anlog [Lantus (nf)] 50 units SQ BID 01/27/17 metFORMIN HCL [Glucophage -] 500 mg PO BID 01/27/17 Cephalexin [Keflex] 500 mg PO BID 5 Days #9 capsule MDD 2 tab 11/16/17 COPD: No Diabetes: Yes HTN: Yes - Surgical History Abdominal Surgery: Yes - Immunization History Td Vaccination: Yes Immunization Up to Date: Yes - Suicide/Smoking/Psychosocial Hx Smoking Status: No Smoking History: Never smoked Years of Tobacco Use: 0 Have you smoked in the past 12 months: No Number of Cigarettes Smoked Daily: 1 Cigars Per Day: 0 Hx Alcohol Use: No Drug/Substance Use Hx: No Substance Use Type: None Hx Substance Use Treatment: No Review of Systems - Review of Systems Comments:: 11/15/17 21:19 GENERAL/CONSTITUTIONAL: No fever or chills. No weakness. HEAD, EYES, EARS, NOSE AND THROAT: No change in vision. No ear pain or discharge. No sore throat. CARDIOVASCULAR: No chest pain or shortness of breath RESPIRATORY: No cough, wheezing, or hemoptysis. GASTROINTESTINAL: No nausea, vomiting, diarrhea or constipation. GENITOURINARY: No dysuria, frequency, or change in urination. MUSCULOSKELETAL: No joint or muscle swelling or pain. No neck or back pain. SKIN: No rash NEUROLOGIC: No headache, vertigo, loss of consciousness, or change in strength/ sensation. ENDOCRINE: No increased thirst. No abnormal weight change HEMATOLOGIC/LYMPHATIC: No anemia, easy bleeding, or history of blood clots. ALLERGIC/IMMUNOLOGIC: No hives or skin allergy. *Physical Exam - Vital Signs Last Vital Signs Temp Pulse Resp BP Pulse Ox 97.7 F 79 20 140/78 99 11/15/17 20:47 11/15/17 20:47 11/15/17 20:47 11/15/17 20:47 11/15/17 20:47 - Physical Exam Comments: 11/15/17 21:19 GENERAL: Awake, alert, and fully oriented, in no acute distress HEAD: No signs of trauma, normocephalic, atraumatic EYES: PERRLA, EOMI, sclera anicteric, conjunctiva clear ENT: Auricles normal inspection, hearing grossly normal, nares patent, oropharynx clear without exudates. Moist mucosa NECK: Normal ROM, supple, no lymphadenopathy, JVD, or masses LUNGS: No distress, speaks full sentences, clear to auscultation bilaterally HEART: Regular rate and rhythm, normal S1 and S2, no murmurs, rubs or gallops, peripheral pulses normal and equal bilaterally. ABDOMEN: Soft, nontender, normoactive bowel sounds. No guarding, no rebound. No masses EXTREMITIES: Normal inspection, Normal range of motion, no edema. No clubbing or cyanosis. NEUROLOGICAL: Cranial nerves II through XII grossly intact. Normal speech, normal gait, no focal sensorimotor deficits SKIN: Warm, Dry, normal turgor, no rashes or lesions noted. ED Treatment Course - LABORATORY CBC & Chemistry Diagram: 11/15/17 22:00 11/15/17 22:32 Medical Decision Making - Medical Decision Making 11/15/17 21:24 Ms. Frank is a 42 yo female w/ pmh as described who presents w/ acute onset 10/ 10 back pain concerning for acute aortic dissection. Workup begun with CBC/CMP/ Cardiac/Serum Preg/UA/Chest, abdomen, and pelvis CT Angio. Lab notified of emergent possibility of diagnosis and need to expedite lab workup. 11/15/17 21:29 Morphine w/ zofran given for pain control. 03/03/18 23:28 Glucose noted to be 305 on CMP. 1L NS ordered. Patient also noted to have UTI as below. Patient signed off to Dr. Antonio for further care. Laboratory Results - last 24 hr 11/15/17 11/15/17 11/15/17 22:00 22:00 22:00 WBC 13.1 H RBC 4.54 Hgb 13.4 Hct 38.7 MCV 85.3 MCH 29.5 MCHC 34.6 RDW 14.4 Plt Count 292 MPV 7.1 L Neutrophils % 59.7 Lymphocytes % 33.1 D Monocytes % 4.9 Eosinophils % 1.4 D Basophils % 0.9 PT with INR INR Sodium Cancelled Potassium Cancelled Chloride Cancelled Carbon Dioxide Cancelled Anion Gap Cancelled BUN Cancelled Creatinine Cancelled Creat Clearance w eGFR Cancelled Random Glucose Cancelled Calcium Cancelled Total Bilirubin Cancelled AST Cancelled ALT Cancelled Alkaline Phosphatase Cancelled Creatine Kinase Cancelled Troponin I Cancelled Total Protein Cancelled Albumin Cancelled Serum , Qual Urine Color Ltyellow Urine Appearance Slcloudy Urine pH 5.0 Ur Specific [place] 1.032 Urine Protein Negative Urine Glucose (UA) 3+ H Urine Ketones Trace H Urine Blood Negative Urine Nitrite Negative Urine Bilirubin Negative Urine Urobilinogen Negative Ur Leukocyte Esterase 1+ H Urine WBC (Auto) 7 Urine RBC (Auto) 1 Ur Epithelial Cells Few Urine Bacteria Rare Urine Mucus Rare 11/15/17 11/15/17 11/15/17 22:00 22:30 22:32 WBC RBC Hgb Hct MCV MCH MCHC RDW Plt Count MPV Neutrophils % Lymphocytes % Monocytes % Eosinophils % Basophils % PT with INR 12.30 H INR 1.09 Sodium Potassium Chloride Carbon Dioxide Anion Gap BUN Creatinine Creat Clearance w eGFR Random Glucose Calcium Total Bilirubin AST ALT Alkaline Phosphatase Creatine Kinase Troponin I Total Protein Albumin Serum , Qual Cancelled Negative Urine Color Urine Appearance Urine pH Ur Specific [place] Urine Protein Urine Glucose (UA) Urine Ketones Urine Blood Urine Nitrite Urine Bilirubin Urine Urobilinogen Ur Leukocyte Esterase Urine WBC (Auto) Urine RBC (Auto) Ur Epithelial Cells Urine Bacteria Urine Mucus 11/15/17 11/15/17 22:32 22:32 WBC RBC Hgb Hct MCV MCH MCHC RDW Plt Count MPV Neutrophils % Lymphocytes % Monocytes % Eosinophils % Basophils % PT with INR INR Sodium 136 Potassium 3.9 Chloride 102 Carbon Dioxide 22 Anion Gap 12 BUN 10 Creatinine 0.7 Creat Clearance w eGFR > 60 Random Glucose 305 H* Calcium 8.1 L Total Bilirubin 0.6 D AST 14 L ALT 27 Alkaline Phosphatase 110 Creatine Kinase 105 Troponin I < 0.02 Total Protein 6.4 Albumin 3.3 L Serum , Qual Urine Color Urine Appearance Urine pH Ur Specific [place] Urine Protein Urine Glucose (UA) Urine Ketones Urine Blood Urine Nitrite Urine Bilirubin Urine Urobilinogen Ur Leukocyte Esterase Urine WBC (Auto) Urine RBC (Auto) Ur Epithelial Cells Urine Bacteria Urine Mucus *DC/Admit/Observation/Transfer Diagnosis at time of Disposition: Thoracic back pain Qualifiers: Chronicity: acute Back pain laterality: midline Qualified Code(s): M54.6 - Pain in thoracic spine - Discharge Dispostion Condition at time of disposition: Stable - Prescriptions Prescriptions: Cephalexin [Keflex] 500 mg PO BID 5 Days #9 capsule MDD 2 tab - Referrals Referrals: Nalini Alcocer MD [Primary Care Provider] - - Patient Instructions Printed Discharge Instructions: DI for Thoracic Back Pain Additional Instructions: Please return to the emergency department with any new or worsening symptoms or concerns. Please follow up with your primary care physician within 72 hours. Please follow up with your primary care physician with CT results. - Post Discharge Activity
[2017-11-15] MEDS ORDERED: morphine CARPU-JECT 4 MG/1 ML DISP.SYRIN IVPUSH ONE (21:25)
[2017-11-15] MEDS ORDERED: MORPHINE SULFATE 10 MG/1 ML *VIAL ONE (21:27)
[2017-11-15] MEDS ORDERED: ONDANSETRON 4 MG/2 ML VIAL IVPUSH ONE (21:29)
[2017-11-15] MEDS ORDERED: ONDANSETRON 4 MG/2 ML VIAL ONE (21:32)
--- NOTE | 2017-11-15 21:58 | PDOC ---
Attending Attestation - Resident Resident Name: ReddanacamilaWaldemarRefugio - ED Attending Attestation I have performed the following: I have examined & evaluated the patient, The case was reviewed & discussed with the resident, I agree w/resident's findings & plan, Exceptions are as noted - HPI HPI: 11/17/17 14:53 Ms garcia is a 42 yo F with a h/o HTN, fibroids, and IDDM who presents complaining of a 1 hour history of severe midline back pain with sudden onset just prior to arriave. No direct trauma, no falls or heavy lifting No chest pain No prior episodes like this No recent travel Denies fever, chills, nausea, vomit, diarrhea and constipation. - Physicial Exam PE: 11/17/17 14:55 GENERAL: The patient is in no acute distress, pt appears uncomfortable. HEAD: Normal EYES: PERRLA, EOMI, sclera anicteric, conjunctiva clear. ENT: Ears normal, nares patent, oropharynx clear without exudates. Moist mucous membranes. NECK: Normal range of motion, supple no midline tenderness LUNGS: Breath sounds equal, clear to auscultation bilaterally. No wheezes, and no crackles. HEART:Regular rate and rhythm, normal S1 and S2 without murmur, rub or gallop. ABDOMEN: Soft, nontender, normoactive bowel sounds EXTREMITIES: Normal range of motion NEUROLOGICAL: Cranial nerves II through XII grossly intact . MUSCULOSKELETAL: Midline tenderness to palpation, no deformities SKIN: No rashes - Medical Decision Making 11/17/17 14:56 42 yo F presenting to the ER with a complaint of sudden onset midline back pain No trauma Will do: CTA - r/o PE, r/o dissection Labs EKG Pain meds Re assess 11/17/17 14:58 Laboratory Tests 11/15/17 11/15/17 11/15/17 22:00 22:30 22:32 WBC 13.1 H Hgb 13.4 Hct 38.7 Plt Count 292 INR 1.09 Creatine Kinase Troponin I Serum , Qual Negative 11/15/17 22:32 WBC Hgb Hct Plt Count INR Creatine Kinase 105 Troponin I < 0.02 Serum , Qual CTA negative for dissection Did show wall ?abscess I have reviewed this with the patient She states she had a hysterectomy several years ago, No tenderness in the area, no redness Pt given copies of CT Pt asked to follow up with car icer/PMD clinical impression: back pain, initial presentation
[2017-11-15 22:10] LABS: BASO % 0.9 % (0-2.0); EOS % 1.4 % (0-4.5); HEMATOCRIT 38.7 % (32.4-45.2); HEMOGLOBIN 13.4 GM/dL (10.7-15.3); LYMPH % 33.1 % (8-40); MCH 29.5 pg (25.7-33.7); MCHC 34.6 g/dl (32.0-36.0); MEAN CELL VOLUME 85.3 fl (80-96); MEAN PLT VOLUME 7.1 fl (7.5-11.1); MONO % 4.9 % (3.8-10.2); NEUT % 59.7 % (42.8-82.8); PLATELET COUNT 292 K/MM3 (134-434); RBC 4.54 M/mm3 (3.60-5.2); RDW 14.4 % (11.6-15.6); WHITE BLOOD COUNT 13.1 K/mm3 (4.0-10.0)
[2017-11-15 22:19] VITALS: BP 141/99; PULSE 147
[2017-11-15 22:20] LABS: URINE APPEARANCE SLCLOUDY; URINE BILIRUBIN NEGATIVE (NEGATIVE); URINE BLOOD NEGATIVE (NEGATIVE); URINE COLOR LTYELLOW; URINE GLUCOSE (UA) 3+ (NEGATIVE); URINE KETONE TRACE (NEGATIVE); URINE NITRITE NEGATIVE (NEGATIVE); URINE PROTEIN NEGATIVE (NEGATIVE); URINE UROBILINOGEN NEGATIVE mg/dL (0.2-1.0)
[2017-11-15 22:30] LABS: URINE LEUK ESTERASE 1+ (NEGATIVE)
[2017-11-15 22:32] LABS: EPI CELLS FEW /HPF (FEW); URINE BACTERIA RARE /hpf (NONE SEEN); URINE MUCUS RARE
[2017-11-15 22:54] LABS: INR 1.09 (0.82-1.09); PROTHROMBIN TIME (PATIENT) 12.3 SEC (9.98-11.88)
[2017-11-15 23:25] LABS: ALBUMIN 3.3 g/dl (3.4-5.0); ALK PHOS 110 U/L (45-117); ANION GAP 12 (8-16); BILIRUBIN,TOTAL 0.6 mg/dL (0.2-1.0); BLOOD UREA NITROGEN 10 mg/dL (7-18); CALCIUM 8.1 mg/dL (8.5-10.1); CHLORIDE 102 mmol/L (98-107); CO2 22 mmol/L (21-32); CREATININE 0.7 mg/dL (0.55-1.02); POTASSIUM 3.9 mmol/L (3.5-5.1); SGOT/AST 14 U/L (15-37); SGPT/ALT 27 U/L (12-78); SODIUM 136 mmol/L (136-145); TOT PROT 6.4 g/dl (6.4-8.2)
[2017-11-15 23:26] LABS: GLUCOSE,RANDOM 305 mg/dL (74-106)
[2017-11-15] MEDS ORDERED: SODIUM CHLORIDE 1,000 ML IV STA (23:27)
--- NOTE | 2017-11-16 00:04 | PDOC ---
*Physical Exam - Vital Signs Last Vital Signs Temp Pulse Resp BP Pulse Ox 97.7 F 147 H 16 141/99 99 11/15/17 20:47 11/15/17 22:17 11/15/17 22:17 11/15/17 22:17 11/15/17 22:17 - Physical Exam Comments: 11/16/17 00:01 GENERAL: Awake, alert, and fully oriented, in no acute distress HEAD: No signs of trauma, normocephalic, atraumatic EYES: PERRLA, EOMI, sclera anicteric, conjunctiva clear ENT: Hearing grossly normal, nares patent, oropharynx clear without exudates. Moist mucosa NECK: Normal ROM, supple, no lymphadenopathy, JVD, or masses LUNGS: No distress, speaks full sentences, clear to auscultation bilaterally HEART: Regular rate and rhythm, normal S1 and S2, no murmurs, rubs or gallops, peripheral pulses normal and equal bilaterally. ABDOMEN: Soft, nontender, normoactive bowel sounds. No guarding, no rebound. No masses EXTREMITIES : Normal inspection, Normal range of motion, no edema. No clubbing or cyanosis. NEUROLOGICAL: Cranial nerves II through XII grossly intact. Normal speech, normal gait, no focal sensorimotor deficits SKIN: Warm, Dry, normal turgor, no rashes or lesions noted ED Treatment Course - LABORATORY CBC & Chemistry Diagram: 11/15/17 22:00 11/15/17 22:32 - ADDITIONAL ORDERS Additional order review: Laboratory Results 11/15/17 11/15/17 11/15/17 22:32 22:32 22:32 PT with INR INR Sodium 136 Potassium 3.9 Chloride 102 Carbon Dioxide 22 Anion Gap 12 BUN 10 Creatinine 0.7 Creat Clearance w eGFR > 60 Random Glucose 305 H* Calcium 8.1 L Total Bilirubin 0.6 D AST 14 L ALT 27 Alkaline Phosphatase 110 Creatine Kinase 105 Troponin I < 0.02 Total Protein 6.4 Albumin 3.3 L Serum , Qual Negative Urine Color Urine Appearance Urine pH Ur Specific [place] Urine Protein Urine Glucose (UA) Urine Ketones Urine Blood Urine Nitrite Urine Bilirubin Urine Urobilinogen Ur Leukocyte Esterase Urine WBC (Auto) Urine RBC (Auto) Ur Epithelial Cells Urine Bacteria Urine Mucus 11/15/17 11/15/17 11/15/17 22:30 22:00 22:00 PT with INR 12.30 H INR 1.09 Sodium Cancelled Potassium Cancelled Chloride Cancelled Carbon Dioxide Cancelled Anion Gap Cancelled BUN Cancelled Creatinine Cancelled Creat Clearance w eGFR Cancelled Random Glucose Cancelled Calcium Cancelled Total Bilirubin Cancelled AST Cancelled ALT Cancelled Alkaline Phosphatase Cancelled Creatine Kinase Cancelled Troponin I Cancelled Total Protein Cancelled Albumin Cancelled Serum , Qual Cancelled Urine Color Urine Appearance Urine pH Ur Specific [place] Urine Protein Urine Glucose (UA) Urine Ketones Urine Blood Urine Nitrite Urine Bilirubin Urine Urobilinogen Ur Leukocyte Esterase Urine WBC (Auto) Urine RBC (Auto) Ur Epithelial Cells Urine Bacteria Urine Mucus 11/15/17 22:00 PT with INR INR Sodium Potassium Chloride Carbon Dioxide Anion Gap BUN Creatinine Creat Clearance w eGFR Random Glucose Calcium Total Bilirubin AST ALT Alkaline Phosphatase Creatine Kinase Troponin I Total Protein Albumin Serum , Qual Urine Color Ltyellow Urine Appearance Slcloudy Urine pH 5.0 Ur Specific [place] 1.032 Urine Protein Negative Urine Glucose (UA) 3+ H Urine Ketones Trace H Urine Blood Negative Urine Nitrite Negative Urine Bilirubin Negative Urine Urobilinogen Negative Ur Leukocyte Esterase 1+ H Urine WBC (Auto) 7 Urine RBC (Auto) 1 Ur Epithelial Cells Few Urine Bacteria Rare Urine Mucus Rare 11/15/17 22:00 RBC 4.54 MCV 85.3 MCHC 34.6 RDW 14.4 MPV 7.1 L Neutrophils % 59.7 Lymphocytes % 33.1 D Monocytes % 4.9 Eosinophils % 1.4 D Basophils % 0.9 - Medications Given in the ED: ED Medications Discontinued Medications Generic Name Dose Route Start Last Admin Trade Name Freq PRN Reason Stop Dose Admin Morphine Sulfate 4 mg 11/15/17 21:25 11/15/17 22:03 Morphine Injection - IVPUSH 11/15/17 21:26 4 mg ONCE ONE Administration Ondansetron HCl 4 mg 11/15/17 21:29 11/15/17 22:04 Zofran Injection IVPUSH 11/15/17 21:30 4 mg ONCE ONE Administration Medical Decision Making - Medical Decision Making 11/16/17 00:[address] Martinez 42 yo F with h/o of HTN, fibroids, and IDDM who presents complaining of a 1 hour h/o severe midline back pain while sitting. No asx. complaints. ED course notable for CBC/CMP/Cardiac/Serum Preg/UA/Chest, abdomen, and pelvis CT Angio. R/o Ao dissection. Received Morphine w/ zofran given for pain control. Glucose noted to be 305 on CMP. 1L NS ordered. + UTI. ED Course: 11/16/17 00:04 CT Chest : No evidence of aortic dissection, aneurysm, or PE CT AP: fecal impaction and focal fluid collection in extending vertically. Patient stable and pain controlled. Will d/c with return precautions. Discussed CT findings. Advised to f/u outpatient with CT results. *DC/Admit/Observation/Transfer Diagnosis at time of Disposition: Thoracic back pain Qualifiers: Chronicity: acute Back pain laterality: midline Qualified Code(s): M54.6 - Pain in thoracic spine - Discharge Dispostion Condition at time of disposition: Stable Admit: No - Prescriptions Prescriptions: Cephalexin [Keflex] 500 mg PO BID 5 Days #9 capsule MDD 2 tab - Referrals Referrals: Nalini Alcocer MD [Primary Care Provider] - - Patient Instructions Printed Discharge Instructions: DI for Thoracic Back Pain Additional Instructions: Please return to the emergency department with any new or worsening symptoms or concerns. Please follow up with your primary care physician within 72 hours. Please follow up with your primary care physician with CT results. - Post Discharge Activity - Attestations Physician Attestion: 11/16/17 00:04 I attest to the information provided in this note.
[2017-11-16] MEDS ORDERED: CEPHALEXIN 250 MG/5 ML ORAL SUSPENSION PO ONE (00:07)
[2017-11-16] MEDS ORDERED: CEPHALEXIN MONOHYDRATE 250 MG CAPSULE (FP) PO ONE (00:15)
[2017-11-16] MEDS ORDERED: morphine CARPU-JECT 4 MG/1 ML DISP.SYRIN IVPUSH ONE (00:16)
[2017-11-16] MEDS ORDERED: MORPHINE SULFATE 10 MG/1 ML *VIAL ONE (00:18)
[2017-11-16] MEDS ORDERED: CEPHALEXIN MONOHYDRATE 250 MG CAPSULE (FP) ONE (00:19)
--- NOTE | 2017-11-16 14:22 | EKG ---
Test Reason : Blood Pressure : / mmHG Vent. Rate : 078 BPM Atrial Rate : 078 BPM P-R Int : 160 ms QRS Dur : 088 ms QT Int : 424 ms P-R-T Axes : 035 012 031 degrees QTc Int : 483 ms POOR DATA QUALITY, INTERPRETATION MAY BE ADVERSELY AFFECTED NORMAL SINUS RHYTHM SEPTAL INFARCT (CITED ON OR BEFORE 20-JUN-2017) ABNORMAL ECG Confirmed by MD JETHRO, SHANTAL ([id number]) on 11/16/2017 2:22:26 PM Referred By: Confirmed By:SHANTAL MORELOS MD
== END 2017-11-16 01:24 | disposition home or self-care (01) ==
LOC: JER 20:38
PROC: 3E033NZ Introduction of Analgesics, Hypnotics, Sedatives into Peripheral Vein, Percutaneous Approach (ICD-10-PCS; principal; 2017-11-15)
PROC: 3E033GC Introduction of Other Therapeutic Substance into Peripheral Vein, Percutaneous Approach (ICD-10-PCS; 2017-11-15)
PROC: 3E0337Z Introduction of Electrolytic and Water Balance Substance into Peripheral Vein, Percutaneous Approach (ICD-10-PCS; 2017-11-15)
DX: M54.6 Pain in thoracic spine (principal); I10 Essential (primary) hypertension; E11.9 Type 2 diabetes mellitus without complications; Z79.4 Long term (current) use of insulin; Z88.6 Allergy status to analgesic agent; Z79.84 Long term (current) use of oral hypoglycemic drugs
CPT/HCPCS: 36415; 71275-TC; 74174-TC; 80053; 81003; 81015; 82550; 84484; 84703; 85025; 85610; 93005; 93010; 99283-25

== ENCOUNTER 2018-02-17 04:32 | Emergency (ER) | payer OTHER ==
[2018-02-17 05:34] VITALS: TEMP 98.6
[2018-02-17 05:36] VITALS: BMI 26.5
--- NOTE | 2018-02-17 05:39 | PDOC ---
History of Present Illness - General Chief Complaint: Back Pain Stated Complaint: BACK PAIN Time Seen by Provider: 02/17/18 05:28 History Source: Patient Exam Limitations: No Limitations - History of Present Illness Initial Comments: This is a 42 YOF with h/o NIDDM on Metformin and insulin (taking adherently) and HTN on enalapril, who p/w burning urination, suprapubic abdominal pain, and lumbar back pain which all started yesterday evening. She additionally has had generalized weakness for the past two days. She measured her BG to be 395 at home last night at 11:45 pm even after taking her normal home insulin nighttime dose. She additionally notes mild lightheadedness, increased urination, and constipation over the past two days, but denies any additional symptoms (no fever, chills, nausea, vomiting, diarrhea, urinary incontinence or retention, bowel incontinence, rectal bleeding, numbness, tingling, focal weakness, or other symptoms. She denies midline back pain, IVDA, weight loss, swollen lymph nodes, recent spinal injections or surgery, or immune compromise. Past History - Past Medical History Allergies/Adverse Reactions: Allergies Allergy/AdvReac Type Severity Reaction Status Date / Time acetaminophen Allergy Intermediate Swelling Verified 02/17/18 05:36 Home Medications: Ambulatory Orders Glipizide [Glucotrol -] 20 mg PO DAILY 01/27/17 Insulin Glargine,Hum.rec.anlog [Lantus (nf)] 50 units SQ BID 01/27/17 metFORMIN HCL [Glucophage -] 500 mg PO BID 01/27/17 Cephalexin [Keflex] 500 mg PO BID 5 Days #9 capsule MDD 2 tab 11/16/17 COPD: No Diabetes: Yes HTN: Yes - Surgical History Abdominal Surgery: Yes - Immunization History Td Vaccination: Yes Immunization Up to Date: Yes - Suicide/Smoking/Psychosocial Hx Smoking Status: No Smoking History: Never smoked Years of Tobacco Use: 0 Have you smoked in the past 12 months: No Number of Cigarettes Smoked Daily: 1 Cigars Per Day: 0 Information on smoking cessation initiated: No Hx Alcohol Use: No Drug/Substance Use Hx: No Substance Use Type: None Hx Substance Use Treatment: No Review of Systems - Review of Systems Able to Perform ROS?: Yes Constitutional: No: Chills, Fever, Unexplained wgt Loss HEENTM: No: Nose Congestion, Throat Pain Respiratory: No: Cough, Shortness of Breath Cardiac (ROS): Yes: Lightheadedness. No: Chest Pain, Palpitations ABD/GI: Yes: Constipated, Other (suprapubic abdominal pain). No: Diarrhea, Nausea, Vomiting : Yes: Burning, Dysuria, Frequency. No: Hematuria Musculoskeletal: Yes: Back Pain (lumbar). No: Neck Pain Integumentary: No: Bruising, Rash Neurological: No: Headache, Numbness, Tingling, Weakness, Dizziness Endocrine: No: Unexplained Weight Gain, Unexplained Weight Loss *Physical Exam - Vital Signs Last Vital Signs Temp Pulse Resp BP Pulse Ox 698 F H 88 19 118/86 100 02/17/18 05:09 02/17/18 05:09 02/17/18 05:09 02/17/18 05:09 02/17/18 05:09 - Physical Exam General Appearance: Yes: Nourished, Appropriately Dressed, Other (tired appearing adult female but able to carry on a conversation, answering questions appropriately). No: Apparent Distress HEENT: positive: EOMI, TAYLOR, Normal Voice, Hearing Grossly Normal. negative: Scleral Icterus (R), Scleral Icterus (L), Nasal Congestion Neck: positive: Trachea midline, Supple. negative: Tender, Rigid Respiratory/Chest: positive: Lungs Clear, Normal Breath Sounds. negative: Respiratory Distress, Crackles, Rhonchi, Stridor, Wheezing Cardiovascular: positive: Regular Rhythm, Regular Rate, S1, S2. negative: Edema , JVD, Murmur Gastrointestinal/Abdominal: positive: Normal Bowel Sounds, Soft. negative: Tender, Organomegaly, Pulsatile Mass, Guarding Musculoskeletal: positive: Normal Inspection. negative: Decreased Range of Motion, Vertebral Tenderness Extremity: positive: Normal Capillary Refill, Normal Inspection, Normal Range of Motion. negative: Tender, Cyanosis Integumentary: positive: Normal Color, Dry, Warm. negative: Erythema, Rash, Bruising Neurologic: positive: residential driver II-XII NML intact, Fully Oriented, Alert, Normal Mood/ Affect, Normal Response, Motor Strength 5/5. negative: EOM Palsy, Facial Droop , Numbness, Sensory Deficit, Confused, Disoriented ED Treatment Course - LABORATORY CBC & Chemistry Diagram: 02/17/18 05:40 02/17/18 05:40 Medical Decision Making - Medical Decision Making Adult female Pt p/w painful urination. Vital Signs Temperature 98.6 F 02/17/18 05:34 Pulse Rate 79 02/17/18 05:34 Respiratory Rate 19 02/17/18 05:34 Blood Pressure 118/68 02/17/18 05:34 O2 Sat by Pulse Oximetry (%) 98 02/17/18 05:34 Exam: Tired appearing, able to converse, normal heart and lung exams, no abdominal ttp, mild lumbar paraspinous ttp, no CVA ttp, neuro exam normal. DDX IBNLT: UTI, pyelonephritis, DKA, neurogenic bladder, interstitial cystitis, STD/STI, vaginal lesion, vulvuvaginal candidiasis, renal colic, obstructive uropathy, ovarian torsion, ovarian cyst, malignancy, hernia, appendicitis, proctitis, sigmoid diverticulitis wwo abscess or perforation, etc. W/U ordered: CBCD CMP Mg Acetone UA UCx EKG TX ordered: IVF Reassessment: Repeat VS: Patient's care is endorsed to oncoming resident at the end of my shift. *DC/Admit/Observation/Transfer - Discharge Dispostion Condition at time of disposition: Fair - Referrals Referrals: Jacinda Barrera MD [Primary Care Provider] - - Patient Instructions - Post Discharge Activity
[2018-02-17] MEDS ORDERED: SODIUM CHLORIDE 0.9% 500 ML INFUS.BAG IV ONE (05:46)
[2018-02-17 05:58] LABS: EOS % 2.2 % (0-4.5); HEMATOCRIT 39.4 % (32.4-45.2); HEMOGLOBIN 13.4 GM/dL (10.7-15.3); LYMPH % 33.5 % (8-40); MCH 29.5 pg (25.7-33.7); MEAN CELL VOLUME 86.7 fl (80-96); MEAN PLT VOLUME 7.1 fl (7.5-11.1); MONO % 4.5 % (3.8-10.2); NEUT % 58.8 % (42.8-82.8); PLATELET COUNT 239 K/MM3 (134-434); RBC 4.54 M/mm3 (3.60-5.2); RDW 13.7 % (11.6-15.6)
[2018-02-17 06:09] LABS: HCG,QUALITATIVE URINE NEGATIVE
--- NOTE | 2018-02-17 06:15 | PDOC ---
Attending Attestation - HPI HPI: 02/17/18 06:49 The patient is a 42 year old female with a significant PMH of a hysterectomy, fibroids, diabetes, hypertension and c- section(2) who presents to the emergency department with dysuria, suprapubic abdominal pain and lower back pain for 1 day. The patient reports that she had been experiencing associated urinary frequency ,urgency, lightheadedness and generalized weakness. The patient reports that she measured her increased blood glucose at home to be 395 at 11:45 pm last night . The patient denies fever, chills, nausea, vomit, diarrhea , constipation or any other urinary symptoms. She denies any history of UTIs. The patient denies .chest pain, shortness of breath, headache and dizziness. The patient denies any other complaints. Documentation prepared by Frederic Adamson, acting as medical delivery technician for Ciro Alegria MD. - Physicial Exam PE: 02/17/18 06:49 Vitals: Triage vital signs reviewed General Appearance: No acute distress, well nourished, well developed Chest Wall: Nontender Cardiac: Regular rate and rhythm, no murmurs, no rubs, no gallops Lungs: Clear to auscultation bilateral, good air movement bilaterally Abdomen: Soft, nondistended, normal bowel sounds, nontender to palpation Extremities: (+)Lower back pain.Full range of motion to all extremities, no cyanosis, clubbing, or edema Skin: Warm and dry, no rashes or lesions, no rash, no petechiae Neuro: AOX3; Cranial Nerves 2-12 grossly intact, Strength intact to all extremities, Sensation intact to all extremities, gait normal Psych: Normal mood, normal affect - Medical Decision Making 02/17/18 06:51 The patient is a 42 year old female with a significant PMH of a hysterectomy, fibroids, diabetes, hypertension and c- section(2) who presents to the emergency department with dysuria, suprapubic abdominal pain and lower back pain for 1 day. The patient reports that she had been experiencing associated urinary frequency ,urgency, lightheadedness and generalized weakness. The patient reports that she measured her increased blood glucose at home to be 395 at 11:45 pm last night . The patient denies fever, chills, nausea, vomit, diarrhea , constipation or any other urinary symptoms. She denies any history of UTIs. The patient denies .chest pain, shortness of breath, headache and dizziness. The patient denies any other complaints. <Frederic Adamson - Last Filed: 02/17/18 06:49> - Resident Resident Name: Lisa Brice - ED Attending Attestation I have performed the following: I have examined & evaluated the patient, The case was reviewed & discussed with the resident, I agree w/resident's findings & plan, Exceptions are as noted - Medical Decision Making 42 years old with past medical history significant for hypertension diabetes with urinary symptoms. Given elevated fingersticks at home we'll check labs to ensure no evidence of DKA hydrate Dr. Simon to follow up labs and dispo, if no evidence of DKA can be discharged home on Keflex. Ceftriaxone given in the emergency department. <Ciro Alegria - Last Filed: 02/17/18 07:11> Heart Score/ECG Review - ECG Impressions Comment:: 02/17/18 07:10 EKG performed at 614 demonstrates sinus rhythm [address] elevations T-wave inversions in lead 3 Interpreted by me. <Ciro Alegria - Last Filed: 02/17/18 07:11>
[2018-02-17 06:19] LABS: URINE APPEARANCE CLEAR; URINE BILIRUBIN NEGATIVE (<2.0 mg/dL); URINE BLOOD 1+ (NEGATIVE); URINE COLOR AMBER; URINE GLUCOSE (UA) 3+ (NEGATIVE); URINE KETONE NEGATIVE (NEGATIVE); URINE LEUK ESTERASE TRACE (NEGATIVE); URINE NITRITE POSITIVE (NEGATIVE); URINE UROBILINOGEN 4.0 E.U/dl mg/dL (0.2-1.0)
[2018-02-17 06:24] LABS: ALBUMIN 3.4 g/dl (3.4-5.0); ALK PHOS 135 U/L (45-117); ANION GAP 5 (8-16); BILIRUBIN,TOTAL 0.5 mg/dL (0.2-1.0); BLOOD UREA NITROGEN 11 mg/dL (7-18); CALCIUM 8.4 mg/dL (8.5-10.1); CHLORIDE 99 mmol/L (98-107); CO2 30 mmol/L (21-32); CREATININE 0.7 mg/dL (0.55-1.02); MAGNESIUM 2.1 mg/dL (1.8-2.4); POTASSIUM 4.5 mmol/L (3.5-5.1); SGOT/AST 21 U/L (15-37); SGPT/ALT 32 U/L (12-78); SODIUM 134 mmol/L (136-145); TOT PROT 6.6 g/dl (6.4-8.2)
[2018-02-17 06:26] LABS: URINE PROTEIN 1+ (NEGATIVE)
[2018-02-17 06:29] LABS: EPI CELLS RARE /HPF (FEW); URINE BACTERIA RARE /hpf (NONE SEEN); URINE MUCUS RARE
[2018-02-17] MEDS ORDERED: CEFTRIAXONE 1,000 MG in DEXTROSE 5%-WATER - 50 ML IVPB ONE (06:47)
[2018-02-17] MEDS ORDERED: cefTRIAXone SODIUM 1 GM VIAL ONE (07:06)
--- NOTE | 2018-02-17 07:46 | PDOC ---
*Physical Exam - Vital Signs Last Vital Signs Temp Pulse Resp BP Pulse Ox 98.6 F 79 19 118/68 98 02/17/18 05:34 02/17/18 05:34 02/17/18 05:34 02/17/18 05:34 02/17/18 05:34 - Physical Exam Comments: 02/17/18 07:45 General Appearance: Nourished. No Apparent Distress HEENT: No Pharyngeal Erythema, Tonsillar Exudate, Tonsillar Erythema Neck: No Cervical Lymphadenopathy Respiratory/Chest: Lungs Clear, Normal Breath Sounds. No Crackles, Rales, Rhonchi, Wheezing Cardiovascular: Regular Rhythm, Regular Rate. No Murmur, Gallops, Rubs Gastrointestinal/Abdominal: Normal Bowel Sounds, Soft. No Guarding, Rebound, Tenderness Musculoskeletal: No CVA Tenderness Extremity: Normal Capillary Refill Integumentary: Normal Color, Dry, Warm Neurologic: Fully Oriented, Alert, Normal Mood/Affect, Normal Response, ED Treatment Course - LABORATORY CBC & Chemistry Diagram: 02/17/18 05:40 02/17/18 05:40 - ADDITIONAL ORDERS Additional order review: Laboratory Results 02/17/18 05:40 Urine Color Linda Urine Appearance Clear Urine pH 6.0 Ur Specific [place] 1.009 Urine Protein 1+ H Urine Glucose (UA) 3+ H Urine Ketones Negative Urine Blood 1+ H Urine Nitrite Positive Urine Bilirubin Negative Urine Urobilinogen 4.0 e.u/dl H Ur Leukocyte Esterase Trace Urine WBC (Auto) 46 Urine RBC (Auto) 3 Ur Epithelial Cells Rare Urine Bacteria Rare Urine Mucus Rare Urine HCG, Qual Negative 02/17/18 05:40 RBC 4.54 MCV 86.7 MCHC 34.0 RDW 13.7 MPV 7.1 L Neutrophils % 58.8 Lymphocytes % 33.5 Monocytes % 4.5 Eosinophils % 2.2 Basophils % 1.0 - Medications Given in the ED: ED Medications Discontinued Medications Generic Name Dose Route Start Last Admin Trade Name Freq PRN Reason Stop Dose Admin Ceftriaxone Sodium 1,000 mg/ 50 mls @ 100 mls/hr 02/17/18 06:47 02/17/18 07: 05 Dextrose IVPB 02/17/18 07:16 100 mls/hr ONCE ONE Administration Sodium Chloride 2,000 ml 02/17/18 05:46 02/17/18 06:25 Normal Saline - IV 02/17/18 05:47 2,000 ml ONCE ONE Administration Progress Note - Progress Note Progress Note: The patient is a 42 year old female with a history of DM, HTN who presents with burning urination, suprapubic abdominal pain, and lumbar back pain which all started yesterday evening. Patient is positive for a UTI, however is pending labs as home glucose was elevated to r/o DKA. Medical Decision Making - Medical Decision Making 02/17/18 08:28 CMP demonstrates a glucose of 350 without any gap. Glucose has improved to 208 after iv fluids. The patient does not appear to be in DKA and appears clinically well on exam. We are comfortable discharging the patient home at this time on keflex with primary care provider follow up. We discussed the results, plan, and return precautions with the patient who voiced understanding and is agreeable with the plan. *DC/Admit/Observation/Transfer Diagnosis at time of Disposition: UTI (urinary tract infection) Qualifiers: Urinary tract infection type: site unspecified Hematuria presence: without hematuria Qualified Code(s): N39.0 - Urinary tract infection, site not specified - Discharge Dispostion Disposition: HOME Condition at time of disposition: Stable Decision to Admit order: No - Prescriptions Prescriptions: Cephalexin Monohydrate [Keflex -] 500 mg PO BID #14 capsule - Referrals Referrals: Jacinda Barrera MD [Primary Care Provider] - - Patient Instructions Printed Discharge Instructions: DI for Urinary Tract Infection (UTI) Additional Instructions: Please return to the ER if you experience concerning or worsening symptoms including worsening abdominal pain, fevers, or vomiting. Your lab results show that you have a urinary tract infection. We have sent a prescription to your pharmacy for antibiotics that you should take twice a day for 7 days. You may use ibuprofen to help manage your pain at home. It is important that you call to schedule a follow up appointment with your primary care provider within 2-3 days to discuss your ER visit and further management of your symptoms. - Post Discharge Activity
[2018-02-17 08:18] LABS: GLUCOSE,RANDOM 350 mg/dL (74-106)
[2018-02-17 08:43] VITALS: BP 132/94; PULSE 74
[2018-02-17 08:59] LABS: ACETONE SERUM NEGATIVE (NEGATIVE)
--- NOTE | 2018-02-17 12:14 | EKG ---
Test Reason : Blood Pressure : / mmHG Vent. Rate : 077 BPM Atrial Rate : 077 BPM P-R Int : 162 ms QRS Dur : 080 ms QT Int : 420 ms P-R-T Axes : 030 009 020 degrees QTc Int : 475 ms POOR DATA QUALITY, INTERPRETATION MAY BE ADVERSELY AFFECTED NORMAL SINUS RHYTHM LOW VOLTAGE QRS BORDERLINE ECG WHEN COMPARED WITH ECG OF 15-NOV-2017 21:06, NO SIGNIFICANT CHANGE WAS FOUND Confirmed by MD JETHRO, SHANTAL ([id number]) on 02/17/2018 12:14:28 PM Referred By: Confirmed By:SHANTAL MORELOS MD
--- NOTE | 2018-02-19 07:46 | PDOC ---
Patient Follow-up (Call Back) - Post ED Follow - Up Condition at time of discharge: Stable Disposition at time of original discharge: HOME Reason for Call Back: Abnwl. Microbiology (Ucx preliminary shows lactose fermenting - bacilli. Pt on keflex. will await final report)
== END 2018-02-17 08:43 | disposition home or self-care (01) ==
LOC: JER 04:32
DX: N39.0 Urinary tract infection, site not specified (principal); I10 Essential (primary) hypertension; E11.9 Type 2 diabetes mellitus without complications; Z79.4 Long term (current) use of insulin
CPT/HCPCS: 36415; 80053; 81003; 81015; 82009; 82962; 83735; 84703; 85025; 87086; 87186; 93005; 93010; 96365; 99282-25

== ENCOUNTER 2018-03-07 22:20 | Emergency (ER) | payer OTHER ==
[2018-03-07 22:28] VITALS: BP 133/80; PULSE 89; TEMP 98.7; BMI 31.8
--- NOTE | 2018-03-07 23:06 | PDOC ---
History of Present Illness - General History Source: Patient Exam Limitations: No Limitations - History of Present Illness Initial Comments: 03/07/18 23:57 The patient is a 42-year-old female with past medical history of IDDM, HTN, and fibroids present to the emergency department with lower abdominal pain. The patient reports onset of pain since last night that worsened today morning, associated with dysuria, chills, vaginal itching and mild blood noted on the tissue after wiping. The patient reports being present at the ED 02/17 with similar symptoms and was dx with UTI and prescribed Keflex. The patient says her glucose level was 297 earlier in the morning. Denies vaginal bleeding or discharge. Denies fever, cough or a headache. Denies chest pain or shortness of breath. Denies back pain. Denies hematuria, frequency or urgency to urinate. Denies diarrhea or constipation. Denies vertigo or lightheadedness. Denies numbness, tingling or loss of sensation. Allergies: acetaminophen. PCP: Jacinda Barrera MD Social history: Reports the daily use of 5-6 cigarettes. Reports the use of 3-4 alcohol weekly. Denies recreational drug use. LMP: 2008 Surgical history:Partial hysterectomy (uterus and cervix removed secondary to fibroid w/ heavy bleeding) and <Edita Fisher - Last Filed: 03/07/18 23:57> <Chad Agrawal - Last Filed: 03/08/18 01:53> - General Chief Complaint: Urinary Problem Stated Complaint: UTI Time Seen by Provider: 03/07/18 22:44 Past History <Edita Fisher - Last Filed: 03/07/18 23:57> - Past Medical History COPD: No Diabetes: Yes HTN: Yes - Surgical History Abdominal Surgery: Yes - Immunization History Td Vaccination: Yes Immunization Up to Date: Yes - Suicide/Smoking/Psychosocial Hx Smoking Status: No Smoking History: Never smoked Years of Tobacco Use: 0 Have you smoked in the past 12 months: No Number of Cigarettes Smoked Daily: 1 Cigars Per Day: 0 Information on smoking cessation initiated: No Hx Alcohol Use: No Drug/Substance Use Hx: No Substance Use Type: None Hx Substance Use Treatment: No <Chad Agrawal - Last Filed: 03/08/18 01:53> - Past Medical History Allergies/Adverse Reactions: Allergies Allergy/AdvReac Type Severity Reaction Status Date / Time acetaminophen Allergy Intermediate Swelling Verified 03/07/18 22:28 Home Medications: Ambulatory Orders Glipizide [Glucotrol -] 20 mg PO DAILY 01/27/17 Insulin Glargine,Hum.rec.anlog [Lantus (nf)] 50 units SQ BID 01/27/17 metFORMIN HCL [Glucophage -] 500 mg PO BID 01/27/17 levoFLOXacin [Levaquin -] 500 mg PO DAILY #7 tablet 03/08/18 Review of Systems - Review of Systems Able to Perform ROS?: Yes Comments:: 03/07/18 23:57 CONSTITUTIONAL: No fever, (+) chills, no fatigue EYES: No visual changes ENT: No ear pain, no sore throat CARDIOVASCULAR: No chest pain, no palpitations RESPIRATORY: No cough, no SOB GI: (+) LQ pain. no nausea, no vomiting, no constipation, no diarrhea GENITOURINARY: (+) dysuria and vaginal itch. no frequency, no hematuria MUSKULOSKELETAL: No backpain, no joint pain, no myalgias SKIN: No rash NEURO: No headache <Edita Fisher - Last Filed: 03/07/18 23:57> *Physical Exam - Vital Signs Last Vital Signs Temp Pulse Resp BP Pulse Ox 98.7 F 89 16 133/80 100 03/07/18 22:26 03/07/18 22:26 03/07/18 22:26 03/07/18 22:26 03/07/18 22:26 - Physical Exam Comments: 03/07/18 23:59 CONSTITUTIONAL: Well-appearing; well-nourished; in no apparent distress HEAD: Normocephalic; atraumatic EYES: PERRL; EOM intact ENMT: External appears normal; normal oropharynx NECK: Supple; non-tender; no cervical lymphadenopathy CARD: Normal S1, S2; no murmurs, rubs, or gallops RESP: Normal chest excursion with respiration; breath sounds clear and equal bilaterally; no wheezes, rhonchi, or rales ABD: (+) Mild suprapubic tenderness. Soft, non-distended; no palpable organomegaly, no palpable hernias EXT: Normal ROM in all four extremities; non-tender to palpation; distal pulses intact SKIN: Warm, dry, no rash NEURO: No focal neurological deficiencies. <Edita Fisher - Last Filed: 03/07/18 23:57> - Vital Signs Last Vital Signs Temp Pulse Resp BP Pulse Ox 98.7 F 89 16 133/80 100 03/07/18 22:26 03/07/18 22:26 03/07/18 22:26 03/07/18 22:26 03/07/18 22:26 <Chad Agrawal - Last Filed: 03/08/18 01:53> ED Treatment Course - ADDITIONAL ORDERS Additional order review: Laboratory Results 03/07/18 23:00 Urine Color Linda Urine Appearance Cloudy Urine pH 5.0 Ur Specific [place] 1.026 Urine Protein 1+ H Urine Glucose (UA) 3+ H Urine Ketones Negative Urine Blood 2+ H Urine Nitrite Positive Urine Bilirubin Negative Urine Urobilinogen 4.0 e.u/dl H Ur Leukocyte Esterase Trace Urine WBC (Auto) 100 Urine RBC (Auto) 67 Ur Epithelial Cells Many Urine Bacteria Moderate Urine Mucus Rare Urine HCG, Qual Negative <Edita Fisher - Last Filed: 03/07/18 23:57> - LABORATORY CBC & Chemistry Diagram: 03/08/18 00:35 03/08/18 00:35 <Chad Agrawal - Last Filed: 03/08/18 01:53> Medical Decision Making - Medical Decision Making 03/08/18 01:31 42-year-old female with history of insulin-dependent diabetes who presents with hyperglycemia and recurrent UTI-type symptoms. Review of previous visit reveals microbiology positive for pansensitive Escherichia coli. Will rule out DKA. Will obtain repeat urine culture and sensitivity. Will treat with Levaquin if patient is discharged. 03/08/18 01:51 CMP reveals hyperglycemia but no evidence of increased anion gap. DKA is unlikely. We'll discharge with Levaquin as planned. <Chad Agrawal - Last Filed: 03/08/18 01:53> *DC/Admit/Observation/Transfer - Attestations Scribe Attestion: 03/08/18 00:00 Documentation prepared by Edita Fisher, acting as biomedical engineering aide for Chad Agrawal MD. <Edita Fisher - Last Filed: 03/07/18 23:57> - Attestations Physician Attestion: 03/08/18 01:30 The documentation was prepared by the scribe under my direct supervision. I have reviewed the documentation which correctly represents the findings, medical decision-making and critical action taken by me. <Sourav Agrawalis - Last Filed: 03/08/18 01:53> Diagnosis at time of Disposition: Hyperglycemia UTI (urinary tract infection) Qualifiers: Urinary tract infection type: acute cystitis Hematuria presence: with hematuria Qualified Code(s): N30.01 - Acute cystitis with hematuria - Discharge Dispostion Disposition: HOME Condition at time of disposition: Stable - Referrals Referrals: Jacinda Barrera MD [Primary Care Provider] - - Patient Instructions Printed Discharge Instructions: DI for Urinary Tract Infection (UTI), DI for Hyperglycemia -- Adult - Post Discharge Activity
[2018-03-07 23:12] LABS: URINE APPEARANCE CLOUDY; URINE BILIRUBIN NEGATIVE (<2.0 mg/dL); URINE COLOR AMBER; URINE GLUCOSE (UA) 3+ (NEGATIVE); URINE KETONE NEGATIVE (NEGATIVE); URINE LEUK ESTERASE TRACE (NEGATIVE); URINE NITRITE POSITIVE (NEGATIVE); URINE PROTEIN 1+ (NEGATIVE); URINE UROBILINOGEN 4.0 E.U/dl mg/dL (0.2-1.0)
[2018-03-07 23:23] LABS: EPI CELLS MANY /HPF (FEW); URINE BACTERIA MODERATE /hpf (NONE SEEN); URINE MUCUS RARE
[2018-03-07 23:28] LABS: HCG,QUALITATIVE URINE NEGATIVE
[2018-03-08] MEDS ORDERED: SODIUM CHLORIDE 1,000 ML IV STA (00:15)
[2018-03-08 01:01] LABS: BASO % 1.4 % (0-2.0); EOS % 2.1 % (0-4.5); HEMATOCRIT 39.3 % (32.4-45.2); HEMOGLOBIN 13.4 GM/dL (10.7-15.3); LYMPH % 38.4 % (8-40); MCH 29.3 pg (25.7-33.7); MCHC 34.2 g/dl (32.0-36.0); MEAN CELL VOLUME 85.7 fl (80-96); MONO % 6.4 % (3.8-10.2); NEUT % 51.7 % (42.8-82.8); PLATELET COUNT 288 K/MM3 (134-434); RBC 4.58 M/mm3 (3.60-5.2); RDW 13.7 % (11.6-15.6); WHITE BLOOD COUNT 9.2 K/mm3 (4.0-10.0)
[2018-03-08 01:25] LABS: ALBUMIN 3.5 g/dl (3.4-5.0); ALK PHOS 117 U/L (45-117); ANION GAP 6 (8-16); BILIRUBIN,TOTAL 0.7 mg/dL (0.2-1.0); BLOOD UREA NITROGEN 9 mg/dL (7-18); CALCIUM 8.6 mg/dL (8.5-10.1); CHLORIDE 101 mmol/L (98-107); CO2 26 mmol/L (21-32); CREATININE 0.6 mg/dL (0.55-1.02); GLUCOSE,RANDOM 275 mg/dL (74-106); SGPT/ALT 47 U/L (12-78); SODIUM 133 mmol/L (136-145); TOT PROT 6.8 g/dl (6.4-8.2)
[2018-03-08 01:30] LABS: POTASSIUM 4.4 mmol/L (3.5-5.1); SGOT/AST 40 U/L (15-37)
== END 2018-03-08 02:49 | disposition home or self-care (01) ==
LOC: JER 22:20
PROC: 3E0337Z Introduction of Electrolytic and Water Balance Substance into Peripheral Vein, Percutaneous Approach (ICD-10-PCS; principal; 2018-03-07)
DX: N30.01 Acute cystitis with hematuria (principal); E11.65 Type 2 diabetes mellitus with hyperglycemia; Z79.4 Long term (current) use of insulin; Z79.84 Long term (current) use of oral hypoglycemic drugs; I10 Essential (primary) hypertension
CPT/HCPCS: 36415; 80053; 81003; 81015; 82962; 84703; 85025; 87086; 96360; 99282-25; J7030

== ENCOUNTER 2018-03-27 21:15 | Emergency (ER) | payer OTHER ==
[2018-03-27] MEDS ORDERED: ONDANSETRON 4 MG/2 ML VIAL IVPUSH ONE (21:17)
[2018-03-27] MEDS ORDERED: SODIUM CHLORIDE 1,000 ML IV STA (21:17)
--- NOTE | 2018-03-27 21:17 | PDOC ---
Rapid Medical Evaluation Time Seen by Provider: 03/27/18 21:15 Medical Evaluation: Allergies Allergy/AdvReac Type Severity Reaction Status Date / Time acetaminophen Allergy Intermediate Swelling Verified 03/07/18 22:28 03/27/18 21:15 I have performed a brief in-person evaluation of this patient. The patient presents with a chief complaint of: epigastric pain since this AM Pertinent physical exam findings: ABD SNTND. h/o MAULIK I have ordered the following: labs, urine, ekg, maalox, lidocaine, zantac The patient will proceed to the ED for further evaluation. Discharge Disposition - Diagnosis Epigastric pain - Referrals - Patient Instructions - Post Discharge Activity
[2018-03-27] MEDS ORDERED: RANITIDINE HCL 150 MG TABLET (FP) PO ONE (21:18)
[2018-03-27] MEDS ORDERED: LIDOCAINE VISCOUS 2% ORAL/TOP 20 ML UNIT-DOSE CUP MM ONE (21:18)
[2018-03-27] MEDS ORDERED: MAG HYDROX/AL HYDROX/SIMETH -MYLANTA- ORAL SUSPENSION PO ONE (21:18)
[2018-03-27 21:21] VITALS: BP 145/82; PULSE 92; TEMP 97.4; BMI 31.8
[2018-03-27] MEDS ORDERED: ONDANSETRON 4 MG/2 ML VIAL ONE (21:35)
[2018-03-27 21:41] LABS: BASO % 0.8 % (0-2.0); EOS % 2.6 % (0-4.5); HEMATOCRIT 39.7 % (32.4-45.2); HEMOGLOBIN 13.6 GM/dL (10.7-15.3); LYMPH % 35.4 % (8-40); MCHC 34.3 g/dl (32.0-36.0); MEAN CELL VOLUME 84.5 fl (80-96); MONO % 5.6 % (3.8-10.2); NEUT % 55.6 % (42.8-82.8); PLATELET COUNT 249 K/MM3 (134-434); RDW 13.9 % (11.6-15.6); WHITE BLOOD COUNT 9.8 K/mm3 (4.0-10.0)
--- NOTE | 2018-03-27 21:44 | PDOC ---
History of Present Illness - General Chief Complaint: Nausea/Vomiting Stated Complaint: VOMITING Time Seen by Provider: 03/27/18 21:15 History Source: Patient Exam Limitations: No Limitations - History of Present Illness Initial Comments: 03/27/18 21:39 This is a 42 YOF with h/o IDDM (CBG frequently out of control and yesterday was >400, this morning was 250s, took her normal insulin), cholecystectomy, and hysterectomy who p/w abdominal pain, nausea, and NBNB vomiting x3 episodes today. She has not had symptoms like this before. She additionally notes lightheadedness and frequent urination, but denies any fever, chills, diarrhea, constipation, black/bloody stool, headache, vision changes, palpitations, chest pain, SOB, LOC, or other symptoms. She reports never having been admitted to the hospital for blood sugar problems or DKA before. She denies any alcohol use recently and denies h/o pancreatitis. Past History - Past Medical History Allergies/Adverse Reactions: Allergies Allergy/AdvReac Type Severity Reaction Status Date / Time acetaminophen Allergy Intermediate Swelling Verified 03/27/18 21:19 Home Medications: Ambulatory Orders Glipizide [Glucotrol -] 20 mg PO DAILY 01/27/17 Insulin Glargine,Hum.rec.anlog [Lantus (10mL VIAL) -] 50 units SQ BID 01/27/17 metFORMIN HCL [Glucophage -] 500 mg PO BID 01/27/17 Enalapril Maleate [Vasotec] 10 mg PO DAILY 03/27/18 Metoclopramide HCl [Reglan] 10 mg PO TID PRN #20 tablet 03/28/18 COPD: No Diabetes: Yes HTN: Yes - Surgical History Abdominal Surgery: Yes - Reproductive History Therapeutic (s) & number: No - Immunization History Td Vaccination: Yes Immunization Up to Date: Yes - Suicide/Smoking/Psychosocial Hx Smoking Status: No Smoking History: Never smoked Years of Tobacco Use: 0 Have you smoked in the past 12 months: No Number of Cigarettes Smoked Daily: 1 Cigars Per Day: 0 Information on smoking cessation initiated: No Hx Alcohol Use: No Drug/Substance Use Hx: No Substance Use Type: None Hx Substance Use Treatment: No Review of Systems - Review of Systems Able to Perform ROS?: Yes Constitutional: Yes: Malaise. No: Chills, Fever, Unexplained wgt Loss HEENTM: No: Nose Congestion, Throat Pain Respiratory: No: Cough, Shortness of Breath Cardiac (ROS): No: Chest Pain, Palpitations ABD/GI: Yes: Nausea, Vomiting, Other (abdominal pain). No: Constipated, Diarrhea : No: Burning, Dysuria Musculoskeletal: Yes: Back Pain. No: Neck Pain Integumentary: No: Bruising, Rash Neurological: No: Headache, Numbness, Tingling, Weakness, Dizziness Endocrine: No: Unexplained Weight Gain, Unexplained Weight Loss *Physical Exam - Vital Signs Last Vital Signs Temp Pulse Resp BP Pulse Ox 97.4 F L 92 H 18 145/82 100 03/27/18 21:16 03/27/18 21:16 03/27/18 21:16 03/27/18 21:16 03/27/18 21:16 - Physical Exam General Appearance: Yes: Nourished, Appropriately Dressed, Obese, Other (awake and alert, appears uncomfortable, laying on right side and splinting upper abdomen with left arm, answers appropriately). No: Apparent Distress HEENT: positive: EOMI, TAYLOR, Normal Voice, Hearing Grossly Normal, Other (a bit dry mucous membranes). negative: Scleral Icterus (R), Scleral Icterus (L), Nasal Congestion Neck: positive: Trachea midline, Supple. negative: Tender, Rigid Respiratory/Chest: positive: Lungs Clear, Normal Breath Sounds. negative: Respiratory Distress, Crackles, Rhonchi, Stridor, Wheezing Cardiovascular: positive: Regular Rhythm, Regular Rate, S1, S2. negative: Edema , JVD, Murmur Gastrointestinal/Abdominal: positive: Normal Bowel Sounds, Tender (diffuse upper abdominal and umbilical ttp worst in the epigastrium, negative Allison's sign, no ttp McBurney's point, no peritoneal signs), Soft. negative: Organomegaly, Pulsatile Mass, Guarding Musculoskeletal: positive: Normal Inspection. negative: Decreased Range of Motion, Vertebral Tenderness Extremity: positive: Normal Capillary Refill, Normal Inspection, Normal Range of Motion. negative: Tender, Cyanosis Integumentary: positive: Normal Color, Dry, Warm. 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 (grossly), Fully Oriented, Alert, Normal Mood/Affect, Normal Response, Motor Strength 5/5 Heart Score/ECG Review #1 03/27/18 22:20 NSR rate 79 with normal axis and intervals and no ischemic changes ED Treatment Course - LABORATORY CBC & Chemistry Diagram: 03/27/18 21:29 03/27/18 21:00 - Medications Given in the ED: ED Medications Discontinued Medications Generic Name Dose Route Start Last Admin Trade Name Sebasq PRN Reason Stop Dose Admin Ondansetron HCl 4 mg 03/27/18 21:17 03/27/18 21:36 Zofran Injection IVPUSH 03/27/18 21:18 4 mg ONCE ONE Administration Medical Decision Making - Medical Decision Making 03/27/18 21:42 Pt with DM p/w hyperglycemia, polydipsia, polyuria, n/v, abdominal pain, AMS. Initial Vital Signs Temp Pulse Resp BP Pulse Ox 97.4 F L 92 H 18 145/82 100 03/27/18 21:16 03/27/18 21:16 03/27/18 21:16 03/27/18 21:16 03/27/18 21:16 Exam: Results as noted in Physical Exam section. DDX IBNLT: gastritis, gastroparesis, pancreatitis, DKA, HHS, simple hyperglycemia (e.g. stress hyperglycemia), alcoholic ketosis, starvation ketosis , drug-induced acidosis, salicylate toxicity, uremic acidosis, possible provoking factors non-adherence, infection/inflammation/sepsis (i.e. UTI/ pyelonephritis, PNA, bronchitis, skin infection, etc), EtOH or drug use, ACS, CVA/TIA, renal failure, etc. W/U ordered: CBCD CMP Mg Phos Serum Acetone Trop CK CKMB ABG UA UCx Lactate BCx EKG CXR Initial TX ordered: IVF, Reglan, Benadryl, Zofran, Zantac, Maalox, viscous lido EKG: Reviewed; results as noted in ECG Review section. Laboratory Tests 03/27/18 03/27/18 03/27/18 21:00 21:00 21:29 WBC 9.8 RBC 4.70 Hgb 13.6 Hct 39.7 MCV 84.5 MCH 29.0 MCHC 34.3 RDW 13.9 Plt Count 249 MPV 7.0 L Absolute Neuts (auto) 5.4 Neutrophils % 55.6 Lymphocytes % 35.4 Monocytes % 5.6 Eosinophils % 2.6 Basophils % 0.8 Nucleated RBC % 0 Sodium 138 Potassium 4.0 Chloride 103 Carbon Dioxide 24 Anion Gap 11 BUN 11 Creatinine 0.8 Creat Clearance w eGFR > 60 POC Glucometer Random Glucose 273 H Calcium 8.6 Total Bilirubin 0.4 AST 14 L ALT 43 Alkaline Phosphatase 114 Total Protein 6.8 Albumin 3.6 Lipase 67 L Serum , Qual Urine Color Urine Appearance Urine pH Ur Specific [place] Urine Protein Urine Glucose (UA) Urine Ketones Urine Blood Urine Nitrite Urine Bilirubin Urine Urobilinogen Ur Leukocyte Esterase Urine WBC (Auto) Urine RBC (Auto) Ur Epithelial Cells Urine Bacteria Urine Mucus Acetone, Qual Negative L 03/27/18 03/27/18 03/27/18 21:30 21:34 22:40 WBC RBC Hgb Hct MCV MCH MCHC RDW Plt Count MPV Absolute Neuts (auto) Neutrophils % Lymphocytes % Monocytes % Eosinophils % Basophils % Nucleated RBC % Sodium Potassium Chloride Carbon Dioxide Anion Gap BUN Creatinine Creat Clearance w eGFR POC Glucometer [phone] Random Glucose Calcium Total Bilirubin AST ALT Alkaline Phosphatase Total Protein Albumin Lipase Serum , Qual Negative Urine Color Straw Urine Appearance Clear Urine pH 6.0 Ur Specific [place] 1.015 Urine Protein Negative Urine Glucose (UA) 3+ H Urine Ketones Negative Urine Blood Negative Urine Nitrite Negative Urine Bilirubin Negative Urine Urobilinogen Negative Ur Leukocyte Esterase Trace Urine WBC (Auto) 3 Urine RBC (Auto) <1 Ur Epithelial Cells Rare Urine Bacteria Rare Urine Mucus Rare Acetone, Qual Reassessment: Patient feels improved, repeat exam benign, wants to go home. DISCHARGE The Pt has gotten significant relief of symptoms with ED medications. No DKA; most likely gastritis versus gastroparesis. Workup is notconcerning for emergency-level pathology at this time. The Pt is appropriate for discharge with close outpatient follow up. They are comfortable with this plan and will follow up with their PCP in 1-3 days. Specific return precautions are discussed and they will come back to the ER if necessary. 03/28/18 12:36 *DC/Admit/Observation/Transfer Diagnosis at time of Disposition: Epigastric pain, Dyspepsia - Discharge Dispostion Disposition: HOME Condition at time of disposition: Improved Decision to Admit order: No - Prescriptions Prescriptions: Metoclopramide HCl [Reglan] 10 mg PO TID PRN #20 tablet PRN Reason: Nausea - Referrals Referrals: Deng Ferrara MD [Staff Physician] - Jacinda Barrera MD [Primary Care Provider] - - Patient Instructions Printed Discharge Instructions: DI for Gastritis, DI for Gastroparesis Additional Instructions: Activity as tolerated. Stay hydrated. Blood tests and a urine test showed no acute abnormalities. Your symptoms could be due to Gastritis, which is an inflammation in the stomach which could also be viral. It's too early to say, but gastroparesis is also possible and something that occurs in patients with diabetes. Continue your medications as previously prescribed by your physician. Take reglan as prescribed as needed for nausea. Take Pepcid 20mg once or twice daily (available over the counter) as needed for stomach burning. You should follow up with your primary doctor as soon as possible regarding today's emergency department visit. Consider also calling a GI specialist, like Dr. Ferrara, if symptoms persist. Return to the emergency department for any new or concerning symptoms, particularly persistent or worsening pain, persistent vomiting or difficulty holding down food and liquids, fevers or chills, bloody vomit or stool. - Post Discharge Activity
[2018-03-27 22:05] LABS: ALBUMIN 3.6 g/dl (3.4-5.0); ALK PHOS 114 U/L (45-117); ANION GAP 11 (8-16); BILIRUBIN,TOTAL 0.4 mg/dL (0.2-1.0); BLOOD UREA NITROGEN 11 mg/dL (7-18); CALCIUM 8.6 mg/dL (8.5-10.1); CHLORIDE 103 mmol/L (98-107); CO2 24 mmol/L (21-32); CREATININE 0.8 mg/dL (0.55-1.02); GLUCOSE,RANDOM 273 mg/dL (74-106); LIPASE 67 U/L (73-393); SGOT/AST 14 U/L (15-37); SGPT/ALT 43 U/L (12-78); SODIUM 138 mmol/L (136-145); TOT PROT 6.8 g/dl (6.4-8.2)
[2018-03-27] MEDS ORDERED: LIDOCAINE VISCOUS 2% ORAL/TOP 20 ML UNIT-DOSE CUP ONE (22:17)
[2018-03-27] MEDS ORDERED: RANITIDINE HCL 150 MG TABLET (FP) ONE (22:17)
[2018-03-27] MEDS ORDERED: METOCLOPRAMIDE HCL INJECTION 10 MG/2 ML VIAL IVPUSH ONE (22:18)
[2018-03-27] MEDS ORDERED: MAG HYDROX/AL HYDROX/SIMETH 30 ML UNIT-DOSE CUP ONE (22:18)
[2018-03-27] MEDS ORDERED: METOCLOPRAMIDE HCL INJECTION 10 MG/2 ML VIAL ONE (22:25)
--- NOTE | 2018-03-27 22:46 | PDOC ---
Attending Attestation - Resident Resident Name: BabsLisa - ED Attending Attestation I have performed the following: I have examined & evaluated the patient, The case was reviewed & discussed with the resident, I agree w/resident's findings & plan - HPI HPI: 03/27/18 22:44 42-year-old female with history of insulin-dependent diabetes presents with first onset of epigastric pain/nausea/vomiting since this morning. Patient was in her usual state of normal health until she awoke this morning, constant epigastric pain with intractable vomiting that is nonbloody and nonbilious. No fevers or chills, no diet changes, no history of alcohol or drugs, no excessive NSAID use. Has never required endoscopy, had cholecystectomy in the past but otherwise has no history of recurrent postprandial pain. No cardiopulmonary complaints. - Physicial Exam PE: 03/27/18 22:45 Vital signs as noted, afebrile History of MAULIK Dry mucosa, no jaundice or pallor Abdomen is tender in the epigastric region without guarding or rebound, otherwise soft and nondistended. No CVA tenderness - Medical Decision Making 03/27/18 22:45 42-year-old female with insulin-dependent diabetes presents with epigastric pain and intractable nausea/vomiting since this morning. Question gastritis, question gastroparesis, less likely biliary or pancreatic in etiology. Not consistent with cardiopulmonary etiology. Labs are within normal limits, including white count and chemistries and lipase. No evidence of DKA Urinalysis pending IV fluids, antiemetics, antacids, pain control Reassess 03/28/18 00:31 A urinalysis clear, acetone negative. Patient feels much better after IV fluids and antiemetics, tolerating liquids in the emergency department, abdominal exam improved and benign. Agrees with discharge plan on antiemetics, diet modification, understands return criteria. Discharge Disposition - Diagnosis Epigastric pain, Dyspepsia - Discharge Dispostion Disposition: HOME Condition at time of disposition: Improved Last Admission D/C Date: 03/05/12 - Prescriptions Prescriptions: Metoclopramide HCl [Reglan] 10 mg PO TID PRN #20 tablet PRN Reason: Nausea - Referrals Referrals: Jacinda Barrera MD [Primary Care Provider] - Deng Ferrara MD [Staff Physician] - - Patient Instructions Printed Discharge Instructions: DI for Gastritis, DI for Gastroparesis Additional Instructions: Activity as tolerated. Stay hydrated. Blood tests and a urine test showed no acute abnormalities. Your symptoms could be due to Gastritis, which is an inflammation in the stomach which could also be viral. It's too early to say, but gastroparesis is also possible and something that occurs in patients with diabetes. Continue your medications as previously prescribed by your physician. Take reglan as prescribed as needed for nausea. Take Pepcid 20mg once or twice daily (available over the counter) as needed for stomach burning. You should follow up with your primary doctor as soon as possible regarding today's emergency department visit. Consider also calling a GI specialist, like Dr. Ferrara, if symptoms persist. Return to the emergency department for any new or concerning symptoms, particularly persistent or worsening pain, persistent vomiting or difficulty holding down food and liquids, fevers or chills, bloody vomit or stool. - Post Discharge Activity Heart Score/ECG Review #1 ECG reviewed & interpreted by me at: 21:56 General ECG Interpretation: Sinus Rhythm, Normal Rate (79), Normal Intervals ( qtc 477), No acute ischemic changes
[2018-03-27 22:57] LABS: URINE APPEARANCE CLEAR; URINE BILIRUBIN NEGATIVE (<2.0 mg/dL); URINE COLOR STRAW; URINE GLUCOSE (UA) 3+ (NEGATIVE); URINE KETONE NEGATIVE (NEGATIVE); URINE LEUK ESTERASE TRACE (NEGATIVE); URINE NITRITE NEGATIVE (NEGATIVE); URINE PROTEIN NEGATIVE (NEGATIVE); URINE UROBILINOGEN NEGATIVE mg/dL (0.2-1.0)
[2018-03-27 23:02] LABS: EPI CELLS RARE /HPF (FEW); URINE BACTERIA RARE /hpf (NONE SEEN); URINE MUCUS RARE
--- NOTE | 2018-03-30 20:23 | EKG ---
Test Reason : Blood Pressure : / mmHG Vent. Rate : 079 BPM Atrial Rate : 079 BPM P-R Int : 164 ms QRS Dur : 078 ms QT Int : 416 ms P-R-T Axes : 044 016 028 degrees QTc Int : 477 ms NORMAL SINUS RHYTHM LOW VOLTAGE QRS BORDERLINE ECG WHEN COMPARED WITH ECG OF 17-FEB-2018 06:14, NO SIGNIFICANT CHANGE WAS FOUND Confirmed by MD TORREY, CHERY ([id number]) on 03/30/2018 8:22:33 PM Referred By: Confirmed By:CHERY HIRSCH MD
== END 2018-03-28 00:48 | disposition home or self-care (01) ==
LOC: JER 21:15
PROC: 3E033GC Introduction of Other Therapeutic Substance into Peripheral Vein, Percutaneous Approach (ICD-10-PCS; principal; 2018-03-27)
PROC: 3E033GC Introduction of Other Therapeutic Substance into Peripheral Vein, Percutaneous Approach (ICD-10-PCS; 2018-03-27)
PROC: 3E033GC Introduction of Other Therapeutic Substance into Peripheral Vein, Percutaneous Approach (ICD-10-PCS; 2018-03-27)
DX: R10.13 Epigastric pain (principal); E10.65 Type 1 diabetes mellitus with hyperglycemia; Z79.4 Long term (current) use of insulin; I10 Essential (primary) hypertension
CPT/HCPCS: 36415; 80053; 81003; 81015; 82009; 82962; 83690; 84703; 85025; 93005; 93010; 96374; 96375; 99283-25; J7030

== ENCOUNTER 2018-12-25 12:46 | Emergency (ER) | payer OTHER ==
[2018-12-25 12:59] VITALS: TEMP 98.1; BMI 31.4
--- NOTE | 2018-12-25 13:10 | PDOC ---
History of Present Illness - General Chief Complaint: Blood Pressure Problem Stated Complaint: HEADACHE / LWR BACK PAIN Time Seen by Provider: 12/25/18 13:10 History Source: Patient Exam Limitations: No Limitations - History of Present Illness Initial Comments: 12/25/18 13:49 43 year old female with PMH IDDM, HTN, peripheral neuropathy presented to ED for dizziness and elevated blood glucose since this morning. Pt stated she awoke dizzy feeling like her sugar was high, checked it and it was 450. She stated her baseline is usually in the 200s. Pt denied recent infectious symptoms including fever, chills, nausea, vomiting, diarrhea, abdominal pain, dysuria, cough, runny nose, sore throat. Pt denied chest pain, shortness of breath. Pt admitted to bilateral pedal edema since this morning, stated that yesterday she walked around significantly more than normal at work. Pt denied recent medication changes. Past History - Past Medical History Allergies/Adverse Reactions: Allergies Allergy/AdvReac Type Severity Reaction Status Date / Time acetaminophen Allergy Intermediate Swelling Verified 12/25/18 12:56 Home Medications: Ambulatory Orders Glipizide [Glucotrol -] 20 mg PO DAILY 01/27/17 Insulin Glargine,Hum.rec.anlog [Lantus (10mL VIAL) -] 50 units SQ BID 01/27/17 metFORMIN HCL [Glucophage -] 500 mg PO BID 01/27/17 Enalapril Maleate [Vasotec] 10 mg PO DAILY 03/27/18 Metoclopramide HCl [Reglan] 10 mg PO TID PRN #20 tablet 03/28/18 COPD: No Diabetes: Yes HTN: Yes Hypercholesterolemia: Yes - Surgical History Abdominal Surgery: Yes - Reproductive History Therapeutic (s) & number: No - Immunization History Td Vaccination: Yes Immunization Up to Date: Yes - Suicide/Smoking/Psychosocial Hx Smoking Status: No Smoking History: Never smoked Years of Tobacco Use: 0 Have you smoked in the past 12 months: No Number of Cigarettes Smoked Daily: 1 Cigars Per Day: 0 Hx Alcohol Use: No Drug/Substance Use Hx: No Substance Use Type: None Hx Substance Use Treatment: No Review of Systems - Review of Systems Able to Perform ROS?: Yes Comments:: 12/25/18 13:49 General: adimtted to generalized weakness. denied fever, chills. HEENT: denied sore throat, rhinorrhea, ear pain. Heart: denied chest pain, palpitations, syncope, diaphoresis. Respiratory: denied shortness of breath, cough, sputum production, hemoptysis. Abdomen: denied abdominal pain, nausea, vomiting, diarrhea, constipation, blood in stool. : denied dysuria, increased urinary frequency, hematuria, urinary incontinence , flank pain. Back: denied back pain. Extremities: admitted to bilateral pedal edema. Musculoskeletal: denied joint pain, muscle pain, joint swelling. Neurological: admitted to dizziness. denied headache, numbness, tingling, weakness. Skin: denied rash, laceration, abrasion. *Physical Exam - Vital Signs Last Vital Signs Temp Pulse Resp BP Pulse Ox 98.1 F 100 H 17 112/77 98 12/25/18 12:56 12/25/18 12:56 12/25/18 12:56 12/25/18 12:56 12/25/18 12:56 - Physical Exam Comments: 12/25/18 13:48 Constitutional: Well-nourished, Well-developed, appearing stated age. HEENT: head is normocephalic, atraumatic. EOMI. PERRLA. dry mucous membranes. Neck: supple. Full ROM. Heart: regular rhythm. no murmurs, rubs or gallops. Lungs: clear to auscultation bilaterally. no crackles, rhonchi or wheezing. no stridor. Abdomen: soft, nontender. normal bowel sounds. no rebound, guarding, masses. Extremities: peripheral pulses intact. nonpitting pedal edema. Neurological: CN 2-12 grossly intact. 5/5 strength all extremities. full sensation throughout. normal gait. Psych: awake, alert, oriented x3. follows commands. answers questions appropriately. ED Treatment Course - LABORATORY CBC & Chemistry Diagram: 12/25/18 13:27 12/25/18 13:27 Medical Decision Making - Medical Decision Making 12/25/18 13:30 43 year old female with above PMH presented to ED for dizziness and high blood glucose in the 400s. Baseline blood glucose in the 200s per patient. Initial Vital Signs Temp Pulse Resp BP Pulse Ox 98.1 F 100 H 17 112/77 98 12/25/18 12:56 12/25/18 12:56 12/25/18 12:56 12/25/18 12:56 12/25/18 12:56 Afebrile. Mild tachycardia. No tachypnea. No hypotension. No hypoxia on room air. Labs ordered: CBC, CMP, VBG, acetone, UA/UC, urine Imaging ordered: none Medications ordered: normal saline 1000 cc bolus EKG performed at 1325: rate 93, regular rhythm, normal axis, normal intervals, flat T in III, otherwise no acute ST abnormalities. 12/25/18 13:48 CBC WBC 5.8 K/mm3 (4.0-10.0) 12/25/18 13:27 RBC 4.42 M/mm3 (3.60-5.2) 12/25/18 13:27 Hgb 12.7 GM/dL (10.7-15.3) 12/25/18 13:27 Hct 37.1 % (32.4-45.2) 12/25/18 13:27 MCV 84.0 fl (80-96) 12/25/18 13:27 MCH 28.8 pg (25.7-33.7) 12/25/18 13:27 MCHC 34.3 g/dl (32.0-36.0) 12/25/18 13:27 RDW 14.3 % (11.6-15.6) 12/25/18 13:27 Plt Count 224 K/MM3 (134-434) 12/25/18 13:27 MPV 6.8 fl (7.5-11.1) L 12/25/18 13:27 Absolute Neuts (auto) 3.6 K/mm3 (1.5-8.0) 12/25/18 13:27 Neutrophils % 62.2 % (42.8-82.8) 12/25/18 13:27 Lymphocytes % 27.6 % (8-40) D 12/25/18 13:27 Monocytes % 7.2 % (3.8-10.2) 12/25/18 13:27 Eosinophils % 2.3 % (0-4.5) 12/25/18 13:27 Basophils % 0.7 % (0-2.0) 12/25/18 13:27 Nucleated RBC % 0 % (0-0) 12/25/18 13:27 No leukocytosis. No anemia. 12/25/18 14:00 VBG: normal pH, no acidosis. mild low CO2. 12/25/18 15:13 CMP Sodium 133 mmol/L (136-145) L 12/25/18 13:27 Potassium 4.2 mmol/L (3.5-5.1) 12/25/18 13:27 Chloride 99 mmol/L (98-107) 12/25/18 13:27 Carbon Dioxide 27 mmol/L (21-32) 12/25/18 13:27 Anion Gap 6 MMOL/L (8-16) L 12/25/18 13:27 BUN 8 mg/dL (7-18) 12/25/18 13:27 Creatinine 0.7 mg/dL (0.55-1.3) 12/25/18 13:27 Creat Clearance w eGFR 91.76 (>60) 12/25/18 13:27 Random Glucose 336 mg/dL (74-106) H* 12/25/18 13:27 Calcium 9.0 mg/dL (8.5-10.1) 12/25/18 13:27 Phosphorus 3.6 mg/dL (2.5-4.9) 12/25/18 13:27 Magnesium 1.9 mg/dL (1.8-2.4) 12/25/18 13:27 Total Bilirubin 0.6 mg/dL (0.2-1) 12/25/18 13:27 AST 15 U/L (15-37) 12/25/18 13:27 ALT 37 U/L (13-61) 12/25/18 13:27 Alkaline Phosphatase 145 U/L (45-117) H 12/25/18 13:27 Troponin I < 0.02 ng/ml (0.00-0.05) 12/25/18 13:27 B-Natriuretic Peptide 13.5 pg/ml (5-125) 12/25/18 13:27 Total Protein 6.3 g/dl (6.4-8.2) L 12/25/18 13:27 Albumin 3.3 g/dl (3.4-5.0) L 12/25/18 13:27 Mild hyponatremia. -Pt is receiving IV fluids No anion gap. No ROSALINDA. Hyperglycemia -1L Normal saline 1000cc bolus given Normal troponin Normal BNP Medications ordered: Normal saline 1000 cc bolus Urine Test Results Urine Color Yellow 12/25/18 13:56 Urine Appearance Cloudy 12/25/18 13:56 Urine pH 5.5 (5.0-8.0) 12/25/18 13:56 Ur Specific [place] 1.037 (1.010-1.035) H 12/25/18 13:56 Urine Protein Negative (NEGATIVE) 12/25/18 13:56 Urine Glucose (UA) 3+ (NEGATIVE) H 12/25/18 13:56 Urine Ketones Trace (NEGATIVE) H 12/25/18 13:56 Urine Blood Negative (NEGATIVE) 12/25/18 13:56 Urine Nitrite Negative (NEGATIVE) 12/25/18 13:56 Urine Bilirubin Negative (NEGATIVE) 12/25/18 13:56 Ur Leukocyte Esterase Negative (NEGATIVE) 12/25/18 13:56 No evidence of UTI. [place]. Urine testing negative. 12/25/18 16:27 Pt reported improvement of symptoms. BGM 278. Pt informed to follow up with PCP and Endo. Pt stated she will call today to make both appointments. Pt informed of the risks of complications of uncontrolled hyperglycemia. Pt discharged. *DC/Admit/Observation/Transfer Diagnosis at time of Disposition: Hyperglycemia - Discharge Dispostion Disposition: HOME Condition at time of disposition: Improved Decision to Admit order: No - Referrals Referrals: Nalini Alcocer MD [Primary Care Provider] - - Patient Instructions Printed Discharge Instructions: How to Check Your Blood Glucose, Complications of Type 2 Diabetes, DI for Hyperglycemia -- Adult Additional Instructions: You were seen today for high blood sugar. The rest of your blood work was normal. Your urine analysis was normal. 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 Bring the paperwork given to you today to your appointments. Drink lots of water to stay hydrated. Monitor your blood sugar everyday. Return to the Emergency Department for fever, chills, nausea, vomiting, weakness , numbness, tingling, lightheadedness like you may pass out, dizziness like the room is spinning, abdominal pain or any other new, worsening or concerning symptoms. - Post Discharge Activity Forms/Work/School Notes: Back to Work
--- NOTE | 2018-12-25 13:13 | PDOC ---
Attending Attestation - HPI HPI: 12/25/18 14:00 The patient is a 43 year old female, with a significant PMH of insulin dependent diabetes (not well managed), HTN, HLD, and peripheral neuropathy who presents to the emergency department with dizziness, lightheadedness and elevated blood glucose since this morning. The patient states she woke up dizzy this morning so she checked her sugar and noticed it was in the 400s, however, her normal baseline is in the 200s. The patient states she is endorsing bilateral feet edema associated with numbness which is due to consistently walking around at work.The patient denies having any food today. The patient denies any infection symptoms or sick contact. The patient denies chest pain, headache or dizziness. The patient denies fever, chills, diarrhea or constipation. The patient denies dysuria, frequency, urgency or hematuria. Allergies: acetaminophen Past surgical history: Abdominal Surgery Social history: No tobacco use. No alcohol use. PCP: Jacinda Kyle <Herbert Angela - Last Filed: 12/25/18 14:00> - Resident Resident Name: Donis Pantoja - ED Attending Attestation I have performed the following: I have examined & evaluated the patient, The case was reviewed & discussed with the resident, I agree w/resident's findings & plan, Exceptions are as noted - Physicial Exam PE: GENERAL: Awake, alert, and fully oriented, in no acute distress HEAD: No signs of trauma EYES: PERRLA, EOMI, sclera anicteric, conjunctiva clear ENT: Auricles normal inspection, hearing grossly normal, nares patent, oropharynx clear without exudates. Dry mucosa NECK: Normal ROM, supple, no lymphadenopathy, JVD, or masses LUNGS: Breath sounds equal, clear to auscultation bilaterally. No wheezes, and no crackles HEART: Regular rate and rhythm, normal S1 and S2, no murmurs, rubs or gallops ABDOMEN: Soft, nontender, normoactive bowel sounds. No guarding, no rebound. No masses EXTREMITIES: Normal range of motion, no edema. No clubbing or cyanosis. No cords, erythema, or tenderness NEUROLOGICAL: Cranial nerves II through XII grossly intact. Normal speech, normal gait. Motor and sensation intact SKIN: Warm, Dry, normal turgor, no rashes or lesions noted. No lesions to the toes. - Medical Decision Making Pt presents with lightheadedness, dizziness, hyperglycemia, polyuria. Will evaluate for possible sources of infection. Will hydrate and control glucose. <Demetria Alvarez - Last Filed: 12/25/18 14:03> Attestations - Attestations 12/25/18 14:01 Documentation prepared by Herbert Angela, acting as medical technologist hematology for Demetria Alvarez MD, MD <Herbert Angela - Last Filed: 12/25/18 14:00>
[2018-12-25 13:34] LABS: VENOUS PC02 39.4 mmHg (41-51); VENOUS PH 7.38 (7.31-7.41); VENOUS PO2 44.2 mmHg (30-40)
[2018-12-25 13:35] LABS: BASO % 0.7 % (0-2.0); EOS % 2.3 % (0-4.5); HEMATOCRIT 37.1 % (32.4-45.2); HEMOGLOBIN 12.7 GM/dL (10.7-15.3); LYMPH % 27.6 % (8-40); MCH 28.8 pg (25.7-33.7); MCHC 34.3 g/dl (32.0-36.0); MEAN PLT VOLUME 6.8 fl (7.5-11.1); MONO % 7.2 % (3.8-10.2); NEUT % 62.2 % (42.8-82.8); PLATELET COUNT 224 K/MM3 (134-434); RBC 4.42 M/mm3 (3.60-5.2); RDW 14.3 % (11.6-15.6); WHITE BLOOD COUNT 5.8 K/mm3 (4.0-10.0)
[2018-12-25 14:13] LABS: ALBUMIN 3.3 g/dl (3.4-5.0); ALK PHOS 145 U/L (45-117); ANION GAP 6 MMOL/L (8-16); BILIRUBIN,TOTAL 0.6 mg/dL (0.2-1); BLOOD UREA NITROGEN 8 mg/dL (7-18); CHLORIDE 99 mmol/L (98-107); CO2 27 mmol/L (21-32); CREATININE 0.7 mg/dL (0.55-1.3); MAGNESIUM 1.9 mg/dL (1.8-2.4); N-TERMINAL BNP 13.5 pg/ml (5-125); PHOSPHOROUS 3.6 mg/dL (2.5-4.9); POTASSIUM 4.2 mmol/L (3.5-5.1); SGOT/AST 15 U/L (15-37); SGPT/ALT 37 U/L (13-61); SODIUM 133 mmol/L (136-145); TOT PROT 6.3 g/dl (6.4-8.2)
[2018-12-25] MEDS ORDERED: SODIUM CHLORIDE 1,000 ML IV STA (14:36)
[2018-12-25 14:58] LABS: GLUCOSE,RANDOM 336 mg/dL (74-106)
[2018-12-25 15:08] LABS: PH,URINE 5.5 (5.0-8.0); URINE APPEARANCE CLOUDY; URINE BILIRUBIN NEGATIVE (NEGATIVE); URINE COLOR YELLOW; URINE GLUCOSE (UA) 3+ (NEGATIVE); URINE KETONE TRACE (NEGATIVE); URINE LEUK ESTERASE NEGATIVE (NEGATIVE); URINE NITRITE NEGATIVE (NEGATIVE); URINE PROTEIN NEGATIVE (NEGATIVE); URINE UROBILINOGEN 0.2 mg/dL (0.2-1.0)
[2018-12-25 17:21] VITALS: BP 110/67; PULSE 82
[2018-12-25 18:37] LABS: ACETONE SERUM NEGATIVE (NEGATIVE)
--- NOTE | 2018-12-28 10:39 | EKG ---
Test Reason : Blood Pressure : / mmHG Vent. Rate : 093 BPM Atrial Rate : 093 BPM P-R Int : 168 ms QRS Dur : 088 ms QT Int : 380 ms P-R-T Axes : 035 011 028 degrees QTc Int : 472 ms NORMAL SINUS RHYTHM LOW VOLTAGE QRS CANNOT RULE OUT ANTERIOR INFARCT , AGE UNDETERMINED ABNORMAL ECG WHEN COMPARED WITH ECG OF 27-MAR-2018 21:56, MINIMAL CRITERIA FOR ANTERIOR INFARCT ARE NOW PRESENT Confirmed by SANJANA CARVER, PENG ([id number]) on 12/28/2018 10:39:06 AM Referred By: Confirmed By:PENG ALLAN MD
== END 2018-12-25 16:45 | disposition home or self-care (01) ==
LOC: JER 12:46
PROC: 3E0337Z Introduction of Electrolytic and Water Balance Substance into Peripheral Vein, Percutaneous Approach (ICD-10-PCS; principal; 2018-12-25)
DX: E11.65 Type 2 diabetes mellitus with hyperglycemia (principal); Z79.4 Long term (current) use of insulin; G62.9 Polyneuropathy, unspecified; I10 Essential (primary) hypertension; E78.00 Pure hypercholesterolemia, unspecified
CPT/HCPCS: 36415; 80053; 81003; 82009; 82803; 82962; 83735; 83880; 84100; 84484; 84703; 85025; 93005; 93010; 96360; 99283-25; J7030

== ENCOUNTER 2019-03-27 09:07 | Emergency (ER) | payer OTHER ==
[2019-03-27 09:22] VITALS: TEMP 97.8; BMI 31.4
--- NOTE | 2019-03-27 09:27 | PDOC ---
History of Present Illness - General Chief Complaint: Vomiting/Diarrhea Stated Complaint: VOMITING/HEADACHE Time Seen by Provider: 03/27/19 09:27 - History of Present Illness Initial Comments: Gayatri Frank is a 43yo woman with a PMH of poorly controlled IDDM, HTN, HLD, and peripheral neuropathy who presents with vomiting and epigastric and LUQ pain since last night as well as 3 episodes of diarrhea today. She reports that she was feeling well yesterday, and she ate salad at home with family. No one else became sick. She has not traveled recently, and she has not made any recent changes to her diet. She reports that her blood sugars yesterday were in the 300's, but she denies any other recent symptoms including fever, chills, SOB , or chest pain. She has not taken any medication for her symptoms today. Per chart review, she has had similar episodes in the past. Past History - Past Medical History Allergies/Adverse Reactions: Allergies Allergy/AdvReac Type Severity Reaction Status Date / Time acetaminophen Allergy Intermediate Swelling Verified 12/25/18 12:56 Home Medications: Ambulatory Orders Glipizide [Glucotrol -] 20 mg PO DAILY 01/27/17 Insulin Glargine,Hum.rec.anlog [Lantus (10mL VIAL) -] 50 units SQ BID 01/27/17 metFORMIN HCL [Glucophage -] 500 mg PO BID 01/27/17 Enalapril Maleate [Vasotec] 10 mg PO DAILY 03/27/18 Metoclopramide HCl [Reglan] 10 mg PO TID PRN #20 tablet 03/28/18 COPD: No Diabetes: Yes (type 2) HTN: Yes Hypercholesterolemia: Yes - Surgical History Abdominal Surgery: Yes Cholecystectomy: Yes - Reproductive History Therapeutic (s) & number: No - Immunization History Td Vaccination: Yes Immunization Up to Date: Yes - Suicide/Smoking/Psychosocial Hx Smoking Status: No Smoking History: Never smoked Years of Tobacco Use: 0 Have you smoked in the past 12 months: No Number of Cigarettes Smoked Daily: 1 Cigars Per Day: 0 Information on smoking cessation initiated: No Hx Alcohol Use: No Drug/Substance Use Hx: No Substance Use Type: None Hx Substance Use Treatment: No Review of Systems - Review of Systems Comments:: General: No fevers, no chills, no weight or appetite change, no malaise HEENT: No changes in vision, no changes in hearing, no congestion, no sore throat CV: No chest pain, no palpitations, no LE edema Pulm: No SOB, no cough, no wheezing GI: See HPI : No frequency, no urgency, no dysuria Musc: No back pain, no joint swelling, no recent injury Skin: No rash, no lesions, no erythema Endo: No excessive thirst, no heat/cold intolerance Heme: No unusual bruising or bleeding, no swollen glands Neuro: No syncope, no numbness/tingling, no focal weakness Vasc: No claudication Psych: No recent change in mood, no SI or HI *Physical Exam - Vital Signs Last Vital Signs Temp Pulse Resp BP Pulse Ox 97.8 F 94 H 20 150/96 100 03/27/19 09:20 03/27/19 09:20 03/27/19 09:20 03/27/19 09:20 03/27/19 09:20 - Physical Exam Comments: General: Comfortable, no acute distress HEENT: PERRL, EOMI, MMM, voice normal, normal neck ROM Cards: RRR, no murmur appreciated Pulm: Comfortable on room air, clear to auscultation bilaterally Abd: Soft, nondistended. Moderate epigastric and LUQ TTP : No CVA tenderness Ext: Atraumatic. No LE edema. ROM intact Vasc: Extremities WWP Skin: Normal color, no rashes or lesions Neuro: A&Ox3, CN grossly intact, normal speech, motor/sensory grossly intact and symmetric Psych: Mood appropriate to situation ED Treatment Course - LABORATORY CBC & Chemistry Diagram: 03/27/19 10:07 03/27/19 10:07 Medical Decision Making - Medical Decision Making 03/27/19 10:06 Gayatri Frank is a 43yo woman with a PMH of poorly controlled IDDM, HTN, HLD, and peripheral neuropathy who presents with vomiting and epigastric and LUQ pain since last night as well as 3 episodes of diarrhea today. She denies any associated symptoms other than noting that her glucose has been in the 300's recently. - Most likely gastritis, possibly due to gastroparesis from poorly controlled DM , or gastroenteritis. Less likely pancreatitis, cholecystitis. - DKA possible. BGM to check sugars - CBC, CMP, mag, phos, lipase. Acetone to be added if glucose elevated - May need imaging depending on labs 03/27/19 11:29 - Labs reviewed. Notable for hyperglycemia to 350 - 2nd liter IVF ordered - Pt significantly improved, no longer feeling nauseated. Pain nearly resolved - Will repeat BGM after fluids. Most likely d/c home 03/27/19 12:59 - Repeat glucose 267 - Will PO challenge 03/27/19 14:57 - Tolerated liquids without additional vomiting - Will d/c home - Discussed home care, follow up, and return precautions at length. She states understanding and agreement. Discussed with Dr Reyes. Lalitha Krishnan PGY2 *DC/Admit/Observation/Transfer Diagnosis at time of Disposition: Acute hyperglycemia, Epigastric pain, Nausea vomiting and diarrhea - Discharge Dispostion Disposition: HOME Condition at time of disposition: Stable - Referrals Referrals: Tex Moser MD [Staff Physician] - Jacinda Barrera MD [Primary Care Provider] - David Friedman MD [Staff Physician] - - Patient Instructions Printed Discharge Instructions: DI for Gastritis Additional Instructions: Discharge Instructions: You were seen in the emergency department for vomiting and abdominal pain. These symptoms are most likely due to gastritis (stomach inflammation). You were noted to have high blood sugars. Home Care and Follow Up: - Please take all your regular home medications as prescribed - Make sure you are using your home insulin following the instructions given by your primary doctor. Your blood sugars were very high in the ED - Drink plenty of water and other sugar-free fluids to help stay hydrated - Call your log roper on Friday to schedule an appointment for within the next week for follow up. Your medications may need to be adjusted - You indicated that you have frequent heartburn; please schedule an appointment with gastroenterology within the next week as you may need additional testing. You have been given contact information for Dr Friedman. - See your regular doctor to schedule an appointment within the next 1-2 weeks - Seek immediate care if you have worsening of your symptoms, you are unable to tolerate foods or liquids, you have severe abdominal pain, you vomit blood, you are unable to stay hydrated, or you have any other medical emergency. - Post Discharge Activity Forms/Work/School Notes: Back to Work
[2019-03-27] MEDS ORDERED: SODIUM CHLORIDE 0.9% 500 ML INFUS.BAG IV ONE (09:43)
[2019-03-27] MEDS ORDERED: ONDANSETRON 4 MG/2 ML VIAL IVPUSH ONE (09:43)
[2019-03-27] MEDS ORDERED: FAMOTIDINE 20 MG/50 ML IVPB 20 MG/50 ML MG IVPB ONE ×2 (09:43→09:50)
[2019-03-27] MEDS ORDERED: ONDANSETRON 4 MG/2 ML VIAL ONE (09:50)
[2019-03-27] MEDS ORDERED: SODIUM CHLORIDE 0.9% 1000 ML INFUS.BAG IV ONE (10:02)
[2019-03-27 10:35] LABS: VENOUS PC02 45.2 mmHg (41-51); VENOUS PH 7.38 (7.31-7.41); VENOUS PO2 38.9 mmHg (30-40)
[2019-03-27 10:42] LABS: BASO % 0.6 % (0-2.0); EOS % 0.3 % (0-4.5); HEMATOCRIT 41.4 % (32.4-45.2); HEMOGLOBIN 14.5 GM/dL (10.7-15.3); LYMPH % 18.2 % (8-40); MCH 28.9 pg (25.7-33.7); MCHC 34.9 g/dl (32.0-36.0); MEAN CELL VOLUME 82.9 fl (80-96); MEAN PLT VOLUME 6.7 fl (7.5-11.1); MONO % 3.9 % (3.8-10.2); RBC 4.99 M/mm3 (3.60-5.2); RDW 14.6 % (11.6-15.6)
[2019-03-27 11:00] LABS: PLATELET COUNT 298 K/MM3 (134-434)
[2019-03-27 11:01] LABS: ALBUMIN 3.8 g/dl (3.4-5.0); ALK PHOS 145 U/L (45-117); ANION GAP 9 MMOL/L (8-16); BILIRUBIN,TOTAL 0.7 mg/dL (0.2-1); BLOOD UREA NITROGEN 8.3 mg/dL (7-18); CALCIUM 8.8 mg/dL (8.5-10.1); CHLORIDE 98 mmol/L (98-107); CO2 28 mmol/L (21-32); CREATININE 0.7 mg/dL (0.55-1.3); MAGNESIUM 1.9 mg/dL (1.8-2.4); PHOSPHOROUS 3.7 mg/dL (2.5-4.9); POTASSIUM 4.6 mmol/L (3.5-5.1); SGOT/AST 30 U/L (15-37); SGPT/ALT 46 U/L (13-61); SODIUM 135 mmol/L (136-145); TOT PROT 7.4 g/dl (6.4-8.2)
[2019-03-27 11:03] LABS: GLUCOSE,RANDOM 350 mg/dL (74-106)
[2019-03-27 11:17] LABS: ACETONE SERUM NEGATIVE (NEGATIVE)
[2019-03-27 11:31] LABS: LIPASE 61 U/L (73-393)
--- NOTE | 2019-03-27 11:48 | PDOC ---
Attending Attestation - Resident Resident Name: Lalitha Krishnan - ED Attending Attestation I have performed the following: I have examined & evaluated the patient, The case was reviewed & discussed with the resident, I agree w/resident's findings & plan, Exceptions are as noted - HPI HPI: 03/27/19 11:43 43 yo F h/o IDDM on long acting insulin twice daily and prn insulin with meals here today c/o n/v /d. pt states started yesterday had had several episodes of nonbloody, bilious emesis. today started with loose watery stool several episodes. pt states her sugars have been elevated lately in 300's . denies f/c no travel. has had prior abd surgery cholecystectomy, c- section. no urinary complaints. no cp no sob. - Physicial Exam PE: 03/27/19 11:46 awake alert lungs clear bilat heart rrr no mrg abd soft mild epigastric ttp. no rebound no guarding. no cva tenderness. skin warm and dry. ext wwp. nuero alert oriented x 3. - Medical Decision Making 03/27/19 11:46 43 yo F with h/o DM here with n/v/d high sugar 300's. differential dka dehydration, viral GE pancreatitis, gastritis , electrolyte abnormality. plan labs vbg, acetone ekg. hydration antiemetics and pepcid. reassess. pt sugar high 300's. given 2 L ns will repeat for and give insulin as needed. ekg unremarkable. no acidosis, gap normal. ua pending. 03/27/19 14:21 pt tolerating PO drank water, no vomiting. wouldlike to go home feeling better. dc with referral to GI. Heart Score/ECG Review #1 General ECG Interpretation: Sinus Rhythm (86), Normal Rate, Normal Intervals, No acute ischemic changes
[2019-03-27 14:06] LABS: PH,URINE 6.5 (5.0-8.0); URINE APPEARANCE CLEAR; URINE BILIRUBIN NEGATIVE (NEGATIVE); URINE COLOR YELLOW; URINE GLUCOSE (UA) 3+ (NEGATIVE); URINE KETONE NEGATIVE (NEGATIVE); URINE LEUK ESTERASE NEGATIVE (NEGATIVE); URINE NITRITE NEGATIVE (NEGATIVE); URINE PROTEIN NEGATIVE (NEGATIVE); URINE UROBILINOGEN 0.2 mg/dL (0.2-1.0)
[2019-03-27 14:41] VITALS: BP 130/87; PULSE 81
--- NOTE | 2019-03-27 16:04 | EKG ---
Test Reason : Blood Pressure : / mmHG Vent. Rate : 086 BPM Atrial Rate : 086 BPM P-R Int : 166 ms QRS Dur : 086 ms QT Int : 408 ms P-R-T Axes : 032 005 018 degrees QTc Int : 488 ms NORMAL SINUS RHYTHM LOW VOLTAGE QRS CANNOT RULE OUT ANTERIOR INFARCT (CITED ON OR BEFORE 25-DEC-2018) ABNORMAL ECG WHEN COMPARED WITH ECG OF 25-DEC-2018 13:25, NO SIGNIFICANT CHANGE WAS FOUND Confirmed by MAIKEL MANCILLA MD ([id number]) on 03/27/2019 4:03:30 PM Referred By: Confirmed By:MAIKEL MANCILLA MD
== END 2019-03-27 15:20 | disposition home or self-care (01) ==
LOC: JER 09:07
PROC: 3E033GC Introduction of Other Therapeutic Substance into Peripheral Vein, Percutaneous Approach (ICD-10-PCS; principal; 2019-03-27)
PROC: 3E033GC Introduction of Other Therapeutic Substance into Peripheral Vein, Percutaneous Approach (ICD-10-PCS; 2019-03-27)
PROC: 3E0337Z Introduction of Electrolytic and Water Balance Substance into Peripheral Vein, Percutaneous Approach (ICD-10-PCS; 2019-03-27)
DX: E11.65 Type 2 diabetes mellitus with hyperglycemia (principal); Z79.4 Long term (current) use of insulin; I10 Essential (primary) hypertension; E78.5 Hyperlipidemia, unspecified; G62.9 Polyneuropathy, unspecified
CPT/HCPCS: 36415; 80053; 81003; 82009; 82803; 82962; 83690; 83735; 84100; 84703; 85025; 93005; 93010; 99284-25; J7030

== ENCOUNTER 2019-09-25 14:37 | Emergency (ER) | payer OTHER ==
[2019-09-25 15:00] VITALS: BP 135/86; PULSE 112; TEMP 98.6; BMI 31.1
--- NOTE | 2019-09-25 15:35 | PDOC ---
History of Present Illness - General Chief Complaint: Cold Symptoms Stated Complaint: COLD SYMPTOMS Time Seen by Provider: 09/25/19 15:14 - History of Present Illness Initial Comments: 09/25/19 15:33 CHIEF COMPLAINT: flu like symptoms HISTORY OF PRESENT ILLNESS: 43 yo F with hx of IDDM [facility] flu like symptoms since last night. Patient reports generalized malaise, chills, runny nose, cough, and subjective fever. Patient denies any vomiting but reports 3 episodes of diarrhea this morning. No recent travel or sick contacts. PAST MEDICAL HISTORY: Denies past medical history FAMILY HISTORY: Denies SOCIAL HISTORY: Denies tobacco, alcohol, illicit drug use. SURGICAL HISTORY: Denies ALLERGIES: tylenol REVIEW OF SYSTEMS General/Constitutional: Subjective fever, chills, generalize malaise. Denies weakness, weight change. HEENT: Runny nose, sore throat. Denies change in vision. Denies ear pain or discharge. . Cardiovascular: Denies chest pain or shortness of breath. Respiratory: Cough since last night. Denies wheezing, or hemoptysis. Gastrointestinal: Diarrhea since this morning. Denies nausea, vomiting, or constipation. Denies rectal bleeding. Genitourinary: Denies dysuria, frequency, or change in urination. Musculoskeletal: Denies joint or muscle swelling or pain. Denies neck or back pain. Skin and breasts: Denies rash or easy bruising. Neurologic: Denies headache, vertigo, loss of consciousness, or loss of sensation. Psychiatric: Denies depression or anxiety. PHYSICAL EXAM General Appearance: Well-appearing, appropriately dressed. No apparent distress. HEENT: Swollen turbinates, rhinorrhea. EOMI, PERRLA, normal ENT inspection, normal voice, TMs normal, pharynx normal. No conjunctival pallor. No photophobia, scleral icterus. Neck: Supple. Trachea midline. No tenderness, rigidity, carotid bruit, stridor , lymphadenopathy, or thyromegaly. Respiratory/Chest: Lungs CTAB. No shortness of breath, chest tenderness, respiratory distress, accessory muscle use. No crackles, rales, rhonchi, stridor , wheezing, dullness Cardiovascular: RRR. S1, S2. No JVD, murmur, bradycardia, tachycardia. Gastrointestinal/Abdominal: Normal bowel sounds. Abdomen soft, non-distended. No tenderness or rebound tenderness. No organomegaly, pulsatile mass, guarding , hernia, hepatomegaly, splenomegaly. Lymphatic: No adenopathy, tenderness. Musculoskeletal/Extremities: Normal inspection. FROM of all extremities, normal capillary refill. Pelvis Stable. No CVA tenderness. No tenderness to extremities, pedal edema, swelling, erythema or deformity. Integumentary: Appropriate color, dry, warm. 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 Fully oriented, alert. Appropriate mood/affect. Motor strength 5/5. No appreciable EOM palsy, facial droop or sensory deficit. Past History - Past Medical History Allergies/Adverse Reactions: Allergies Allergy/AdvReac Type Severity Reaction Status Date / Time acetaminophen Allergy Intermediate Swelling Verified 05/07/19 17:22 Home Medications: Ambulatory Orders Glipizide [Glucotrol -] 20 mg PO DAILY 01/27/17 Insulin Glargine,Hum.rec.anlog [Lantus (10mL VIAL) -] 50 units SQ BID 01/27/17 metFORMIN HCL [Glucophage -] 500 mg PO BID 01/27/17 Enalapril Maleate [Vasotec] 10 mg PO DAILY 03/27/18 Metoclopramide HCl [Reglan] 10 mg PO TID PRN #20 tablet 03/28/18 Benzonatate [Tessalon Pearls -] 100 mg PO TID #21 capsule 09/25/19 Gabapentin 100 mg PO DAILY 09/25/19 COPD: No Diabetes: Yes (type 2) HTN: Yes Hypercholesterolemia: Yes - Surgical History Abdominal Surgery: Yes Cholecystectomy: Yes - Reproductive History Therapeutic (s) & number: No - Immunization History Td Vaccination: Yes Immunization Up to Date: Yes - Psycho Social/Smoking Cessation Hx Smoking Status: No Smoking History: Never smoked Years of Tobacco Use: 0 Have you smoked in the past 12 months: No Number of Cigarettes Smoked Daily: 1 Cigars Per Day: 0 Information on smoking cessation initiated: No Hx Alcohol Use: No Drug/Substance Use Hx: No Substance Use Type: None Hx Substance Use Treatment: No *Physical Exam - Vital Signs Last Vital Signs Temp Pulse Resp BP Pulse Ox 98.6 F 112 H 18 135/86 98 09/25/19 14:58 09/25/19 14:58 09/25/19 14:58 09/25/19 14:58 09/25/19 14:58 Medical Decision Making - Medical Decision Making 09/25/19 15:35 43 yo F with hx of IDDM presents to [facility] with sudden onset flu like symptoms since last night. -flu swab 09/25/19 16:21 flu negative clinical presentation consistent with viral URI, will treat symptomatically tessalon perles pseudoephedrine Discharge - Discharge Information Problems reviewed: Yes Clinical Impression/Diagnosis: Viral URI Condition: Stable Disposition: HOME - Admission No - Additional Discharge Information Prescriptions: Benzonatate [Tessalon Pearls -] 100 mg PO TID #21 capsule - Follow up/Referral Referrals: Jacinda Barrera MD [Primary Care Provider] - - Patient Discharge Instructions Patient Printed Discharge Instructions: DI for Viral Upper Respiratory Infection -- Adult Additional Instructions: Please take medications as prescribed. Follow-up with your primary care doctor within the next week for continued monitoring of your symptoms. If you develop persistent fever, vomiting, diarrhea, or any new or worsening symptoms, please return to the ER. - Post Discharge Activity Work/Back to School Note: Back to Work
== END 2019-09-25 16:29 | disposition home or self-care (01) ==
LOC: JERFT 14:37
DX: J06.9 Acute upper respiratory infection, unspecified (principal); B97.89 Other viral agents as the cause of diseases classified elsewhere; E10.9 Type 1 diabetes mellitus without complications; Z79.4 Long term (current) use of insulin; I10 Essential (primary) hypertension; E78.00 Pure hypercholesterolemia, unspecified
CPT/HCPCS: 87804; 99281-25

== ENCOUNTER 2019-10-17 07:08 | Emergency (ER) | payer OTHER ==
[2019-10-17 07:19] VITALS: TEMP 98.1; BMI 30.7
--- NOTE | 2019-10-17 07:39 | PDOC ---
History of Present Illness - General Chief Complaint: Vomiting/Diarrhea Stated Complaint: VOMITING Time Seen by Provider: 10/17/19 07:36 - History of Present Illness Initial Comments: 10/17/19 07:39 Ms. Frank is a 44 yo female w/ pmh of DM, HTN, HLD who presents for evaluation of 1 day history of nausea with multiple episodes of diarrhea. Patient reports symptoms started yesterday evening and have consisted of loose brown stool and food she had eaten (multiple of each). Patient also complains of generalized abdominal pain since this time. Ms. Frank reports she does not check her blood sugars at home as she does not feel comfortable doing so. Was previously healthy before this occured. Denies other complaints at this time. The patient denies chest pain, shortness of breath, headache and dizziness. Denies fever, chills, and constipation. Denies dysuria, frequency, urgency and hematuria. Past History - Past Medical History Allergies/Adverse Reactions: Allergies Allergy/AdvReac Type Severity Reaction Status Date / Time acetaminophen Allergy Intermediate Swelling Verified 10/17/19 07:18 Home Medications: Ambulatory Orders Glipizide [Glucotrol -] 5 mg PO DAILY 01/27/17 Insulin Glargine,Hum.rec.anlog [Lantus (10mL VIAL) -] 18 units SQ BID 01/27/17 metFORMIN HCL [Glucophage -] 500 mg PO BID 01/27/17 Metoclopramide HCl [Reglan] 10 mg PO TID PRN #20 tablet 03/28/18 Insulin (Novolog) [Novolog] 50 units SQ BID 10/17/19 Simvastatin [Zocor] 20 mg PO HS 10/17/19 COPD: No Diabetes: Yes (type 2) HTN: Yes Hypercholesterolemia: Yes - Surgical History Abdominal Surgery: Yes Cholecystectomy: Yes - Reproductive History Therapeutic (s) & number: No - Immunization History Td Vaccination: Yes Immunization Up to Date: Yes - Psycho Social/Smoking Cessation Hx Smoking Status: No Smoking History: Never smoked Years of Tobacco Use: 0 Have you smoked in the past 12 months: No Number of Cigarettes Smoked Daily: 1 Cigars Per Day: 0 Hx Alcohol Use: No Drug/Substance Use Hx: No Substance Use Type: None Hx Substance Use Treatment: No Review of Systems - Review of Systems Comments:: 10/17/19 08:27 GENERAL/CONSTITUTIONAL: No fever or chills. No weakness. HEAD, EYES, EARS, NOSE AND THROAT: No change in vision. No ear pain or discharge. No sore throat. CARDIOVASCULAR: No chest pain or shortness of breath RESPIRATORY: No cough, wheezing, or hemoptysis. GASTROINTESTINAL: +N/V/D and abdominal pain as described. No constipation. GENITOURINARY: No dysuria, frequency, or change in urination. MUSCULOSKELETAL: No joint or muscle swelling or pain. No neck or back pain. SKIN: No rash NEUROLOGIC: No headache, vertigo, loss of consciousness, or change in strength/ sensation. ENDOCRINE: No increased thirst. No abnormal weight change HEMATOLOGIC/LYMPHATIC: No anemia, easy bleeding, or history of blood clots. ALLERGIC/IMMUNOLOGIC: No hives or skin allergy. *Physical Exam - Vital Signs Last Vital Signs Temp Pulse Resp BP Pulse Ox 98.1 F 93 H 18 116/80 99 10/17/19 07:16 10/17/19 07:16 10/17/19 07:16 10/17/19 07:16 10/17/19 07:16 - Physical Exam 10/17/19 08:27 GENERAL: Awake, alert, and fully oriented, in no acute distress HEAD: No signs of trauma, normocephalic, atraumatic EYES: PERRLA, EOMI, sclera anicteric, conjunctiva clear ENT: Auricles normal inspection, hearing grossly normal, nares patent, oropharynx clear without exudates. Moist mucosa NECK: Normal ROM, supple, no lymphadenopathy, JVD, or masses LUNGS: No distress, speaks full sentences, clear to auscultation bilaterally HEART: Regular rate and rhythm, normal S1 and S2, no murmurs, rubs or gallops, peripheral pulses normal and equal bilaterally. ABDOMEN: +Diffuse abdominal TTP. Soft, normoactive bowel sounds. No guarding, no rebound. No masses EXTREMITIES: Normal inspection, Normal range of motion, no edema. No clubbing or cyanosis. NEUROLOGICAL: Cranial nerves II through XII grossly intact. Normal speech, normal gait, no focal sensorimotor deficits SKIN: Warm, Dry, normal turgor, no rashes or lesions noted. ED Treatment Course - LABORATORY CBC & Chemistry Diagram: 10/17/19 07:55 10/17/19 07:55 Medical Decision Making - Medical Decision Making 10/17/19 09:19 Ms. Frank is a 44 yo female w/ pmh as described who presents for evaluation of nausea, diarrhea, and vomiting w/ additional abdominal tenderness. Patient evaluated for DKA w/ labs as below and hydrated. No concerning findings found on laboratory exam as below / no signs of DKA. Patient will be evaluated with abdominal CT for continued TTP. 10/17/19 11:57 CT negative for acute process. CT read significant for possibly ruptured ovarian cyst. Patient given CT read and outpatient follow-up discussed. Patient will present to PCP for further evaluation as needed. No concern for acute process at this time. Discharging ot home. Laboratory Results - last 24 hr 10/17/19 10/17/19 10/17/19 07:45 07:55 07:55 WBC RBC Hgb Hct MCV MCH MCHC RDW Plt Count MPV Absolute Neuts (auto) Neutrophils % Lymphocytes % Monocytes % Eosinophils % Basophils % Nucleated RBC % VBG pH 7.44 H POC VBG pCO2 38.7 POC VBG pO2 76.7 H VBG HCO3 25.9 VBG O2 Sat (Willian) 95.5 H VBG Base Excess 2.2 H Sodium Potassium Chloride Carbon Dioxide Anion Gap BUN Creatinine Est GFR (CKD-EPI)AfAm Est GFR (CKD-EPI)NonAf POC Glucometer 328 Random Glucose Calcium Total Bilirubin AST ALT Alkaline Phosphatase Total Protein Albumin Beta-Hydroxybutyrate 1.1 Serum , Qual Urine Color Urine Appearance Urine pH Ur Specific Challenge Urine Protein Urine Glucose (UA) Urine Ketones Urine Blood Urine Nitrite Urine Bilirubin Urine Urobilinogen Ur Leukocyte Esterase 10/17/19 10/17/19 10/17/19 07:55 07:55 07:55 WBC 6.3 RBC 4.09 Hgb 11.7 Hct 33.5 D MCV 81.9 MCH 28.5 MCHC 34.8 RDW 14.2 Plt Count 267 MPV 6.8 L Absolute Neuts (auto) 3.4 Neutrophils % 54.5 Lymphocytes % 35.7 Monocytes % 7.4 Eosinophils % 1.8 D Basophils % 0.6 Nucleated RBC % 0 VBG pH POC VBG pCO2 POC VBG pO2 VBG HCO3 VBG O2 Sat (Willian) VBG Base Excess Sodium 134 L Potassium 4.3 Chloride 101 Carbon Dioxide 26 Anion Gap 8 BUN 10.2 Creatinine 0.6 Est GFR (CKD-EPI)AfAm 129.39 Est GFR (CKD-EPI)NonAf 111.64 POC Glucometer Random Glucose 297 H Calcium 8.5 Total Bilirubin 0.7 AST 18 ALT 28 Alkaline Phosphatase 118 H Total Protein 6.6 Albumin 3.2 L Beta-Hydroxybutyrate Serum , Qual Negative Urine Color Urine Appearance Urine pH Ur Specific Challenge Urine Protein Urine Glucose (UA) Urine Ketones Urine Blood Urine Nitrite Urine Bilirubin Urine Urobilinogen Ur Leukocyte Esterase 10/17/19 09:43 WBC RBC Hgb Hct MCV MCH MCHC RDW Plt Count MPV Absolute Neuts (auto) Neutrophils % Lymphocytes % Monocytes % Eosinophils % Basophils % Nucleated RBC % VBG pH POC VBG pCO2 POC VBG pO2 VBG HCO3 VBG O2 Sat (Willian) VBG Base Excess Sodium Potassium Chloride Carbon Dioxide Anion Gap BUN Creatinine Est GFR (CKD-EPI)AfAm Est GFR (CKD-EPI)NonAf POC Glucometer Random Glucose Calcium Total Bilirubin AST ALT Alkaline Phosphatase Total Protein Albumin Beta-Hydroxybutyrate Serum , Qual Urine Color Yellow Urine Appearance Clear Urine pH 8.5 H D Ur Specific Challenge 1.014 Urine Protein Negative Urine Glucose (UA) 2+ H Urine Ketones Negative Urine Blood Negative Urine Nitrite Negative Urine Bilirubin Negative Urine Urobilinogen 0.2 Ur Leukocyte Esterase Negative Discharge - Discharge Information Problems reviewed: Yes Clinical Impression/Diagnosis: Ovarian cyst Qualifiers: Laterality: unspecified laterality Qualified Code(s): N83.209 - Unspecified ovarian cyst, unspecified side Gastritis Qualifiers: Gastritis type: unspecified gastritis Chronicity: unspecified Gastritis bleeding: without bleeding Qualified Code(s): K29.70 - Gastritis, unspecified, without bleeding Disposition: HOME - Follow up/Referral Referrals: Jacinda Barrera MD [Primary Care Provider] - - Patient Discharge Instructions Patient Printed Discharge Instructions: DI for Ovarian Cyst, DI for Gastritis Additional Instructions: You were evaluated today in the ER for your abdominal pain. We performed laboratory evaluation which was normal and CT scan which revealed a small ovarian cyst. Please follow-up with primary care provider for further evaluation. You may take over the counter motrin or tylenol per package instructions for pain control. Return to ER if any fever, chills, increase in pain, or other concerning symptoms. - Post Discharge Activity Work/Back to School Note: Back to Work
[2019-10-17] MEDS ORDERED: SODIUM CHLORIDE 1,000 ML IV STA (07:43)
[2019-10-17] MEDS ORDERED: ONDANSETRON 4 MG/2 ML VIAL IVPUSH ONE (07:43)
[2019-10-17] MEDS ORDERED: ONDANSETRON 4 MG/2 ML VIAL ONE (07:59)
[2019-10-17] MEDS ORDERED: FAMOTIDINE 20 MG/50 ML IVPB 20 MG/50 ML MG IVPB ONE ×2 (08:11→09:28)
[2019-10-17] MEDS ORDERED: MAG HYDROX/AL HYDROX/SIMETH 30 ML UNIT-DOSE CUP PO ONE (08:11)
--- NOTE | 2019-10-17 08:11 | PDOC ---
Attending Attestation - Resident Resident Name: Refugio Martinez - ED Attending Attestation I have performed the following: I have examined & evaluated the patient, The case was reviewed & discussed with the resident, I agree w/resident's findings & plan, Exceptions are as noted - HPI HPI: 10/17/19 08:09 44 F with h/o DM, HTN, HLD presenting to ED [facility] N+V+D. She reports about 3 days of feeling unwell. Denies F/C. Endorses diffuse abdominal pain associated with vomiting and diarrhea. No known sick contacts. No CP/SOB. No dysuria/flank pain. - Physicial Exam PE: 10/17/19 08:10 "GENERAL: Awake, alert, and fully oriented, in no acute distress. HEAD: No signs of trauma EYES: PERRLA, EOMI, sclera anicteric, conjunctiva clear ENT: Auricles normal inspection, hearing grossly normal, nares patent, oropharynx clear without exudates. Moist mucosa NECK: Nontender, no stepoffs, Normal ROM, supple, no lymphadenopathy, JVD, or masses LUNGS: Breath sounds equal, clear to auscultation bilaterally. No wheezes, and no crackles HEART: Regular rate and rhythm, normal S1 and S2, no murmurs, rubs or gallops ABDOMEN: + diffusely tender, normoactive bowel sounds. No guarding, no rebound. No masses EXTREMITIES: Normal range of motion, no edema. No clubbing or cyanosis. No cords, erythema, or tenderness NEUROLOGICAL: Cranial nerves II through XII intact. 5/5 strength and sensation in all extremities, Normal speech, normal gait, normal cerebellar function SKIN: Warm, Dry, normal turgor, no rashes or lesions noted. - Medical Decision Making 10/17/19 08:10 44 F with N+V+D and abdominal pain. Likely gastroenteritis. Will r/o DKA given h /o DM. Consider CT if pain unimproved with GI cocktail. - Labs - IVF, GI meds 10/17/19 12:[address] shows possible ruptured R ovarian cyst Pt reassessed - pain much improved Pt tolerating PO Pt is well appearing, with normal vitals. Clinically stable for DC at this time. I discussed the physical exam findings, ancillary test results and final diagnoses with the patient. I answered all of the patient's questions. The patient was satisfied with the care received and felt comfortable with the discharge plan and treatment plan. The patient agrees to follow up with the primary care physician within 24-72 hours.
[2019-10-17 08:32] LABS: BASO % 0.6 % (0-2.0); EOS % 1.8 % (0-4.5); HEMATOCRIT 33.5 % (32.4-45.2); HEMOGLOBIN 11.7 GM/dL (10.7-15.3); LYMPH % 35.7 % (8-40); MCH 28.5 pg (25.7-33.7); MCHC 34.8 g/dl (32.0-36.0); MEAN CELL VOLUME 81.9 fl (80-96); MEAN PLT VOLUME 6.8 fl (7.5-11.1); MONO % 7.4 % (3.8-10.2); NEUT % 54.5 % (42.8-82.8); PLATELET COUNT 267 K/MM3 (134-434); RBC 4.09 M/mm3 (3.60-5.2); RDW 14.2 % (11.6-15.6); WHITE BLOOD COUNT 6.3 K/mm3 (4.0-10.0)
[2019-10-17] MEDS ORDERED: MAG HYDROX/AL HYDROX/SIMETH 30 ML UNIT-DOSE CUP ONE (08:37)
[2019-10-17 08:45] LABS: VENOUS PC02 38.7 mmHg (38-52); VENOUS PH 7.44 (7.31-7.41); VENOUS PO2 76.7 mmHg (28-48)
[2019-10-17 08:56] LABS: ALBUMIN 3.2 g/dl (3.4-5.0); BILIRUBIN,TOTAL 0.7 mg/dL (0.2-1); BLOOD UREA NITROGEN 10.2 mg/dL (7-18); CALCIUM 8.5 mg/dL (8.5-10.1); CREATININE 0.6 mg/dL (0.55-1.3); POTASSIUM 4.3 mmol/L (3.5-5.1); TOT PROT 6.6 g/dl (6.4-8.2)
[2019-10-17 09:00] VITALS: BP 132/87; PULSE 85
[2019-10-17 10:47] LABS: PH,URINE 8.5 (5.0-8.0); URINE APPEARANCE CLEAR; URINE BILIRUBIN NEGATIVE (NEGATIVE); URINE COLOR YELLOW; URINE GLUCOSE (UA) 2+ (NEGATIVE); URINE KETONE NEGATIVE (NEGATIVE); URINE LEUK ESTERASE NEGATIVE (NEGATIVE); URINE NITRITE NEGATIVE (NEGATIVE); URINE PROTEIN NEGATIVE (NEGATIVE); URINE UROBILINOGEN 0.2 mg/dL (0.2-1.0)
== END 2019-10-17 12:35 | disposition home or self-care (01) ==
LOC: JER 07:08
PROC: 3E033GC Introduction of Other Therapeutic Substance into Peripheral Vein, Percutaneous Approach (ICD-10-PCS; principal; 2019-10-17)
PROC: 3E033GC Introduction of Other Therapeutic Substance into Peripheral Vein, Percutaneous Approach (ICD-10-PCS; 2019-10-17)
DX: K29.70 Gastritis, unspecified, without bleeding (principal); N83.201 Unspecified ovarian cyst, right side; I10 Essential (primary) hypertension; E11.9 Type 2 diabetes mellitus without complications; Z79.4 Long term (current) use of insulin; E78.00 Pure hypercholesterolemia, unspecified
CPT/HCPCS: 36415; 74177-TC; 80053; 81003; 82010; 82803; 82962; 84703; 85025; 87086; 96365; 96375; 99282-25; J7030; Q9967

== ENCOUNTER 2019-11-09 20:58 | Inpatient (IN) | payer OTHER ==
--- NOTE | 2019-11-09 21:38 | PDOC ---
History of Present Illness - General Chief Complaint: Nausea/Vomiting Stated Complaint: VOMITING Time Seen by Provider: 11/09/19 21:28 History Source: Patient - History of Present Illness Initial Comments: 11/09/19 23:02 44-year-old female with history of IDDM, HTN, HLD complaining of nausea vomiting and generalized abdominal pain since this morning. Patient reports that she checked her sugar this morning and it was 190. Patient reports feeling fatigued due to the frequent episodes of vomiting today. Denies urinary symptoms, chest pain. 11/10/19 00:45 11/10/19 03:52 Past History - Past Medical History Allergies/Adverse Reactions: Allergies Allergy/AdvReac Type Severity Reaction Status Date / Time acetaminophen Allergy Intermediate Swelling Verified 11/09/19 21:19 Home Medications: Ambulatory Orders Glipizide [Glucotrol -] 10 mg PO BID 01/27/17 metFORMIN HCL [Glucophage -] 500 mg PO BID 01/27/17 Metoclopramide HCl [Reglan] 10 mg PO TID PRN #20 tablet 03/28/18 Insulin (Novolog) [Novolog -] See Protocol SQ TIDCM 10/17/19 Simvastatin [Zocor] 20 mg PO HS 10/17/19 Enalapril Maleate [Vasotec] 10 mg PO DAILY 11/10/19 traZODone HCL [Trazodone HCl] 100 mg PO HS 11/10/19 Famotidine [Pepcid -] 20 mg PO DAILY #30 tablet 11/11/19 Insulin Glargine,Hum.rec.anlog [Lantus (10mL VIAL) -] 50 units SQ BID #7 vial Liraglutide [Victoza -] 1.8 mg SQ DAILY@0700 #1 box 11/11/19 COPD: No Diabetes: Yes (type 2) HTN: Yes Hypercholesterolemia: Yes - Surgical History Abdominal Surgery: Yes Cholecystectomy: Yes - Reproductive History Therapeutic (s) & number: No - Immunization History Td Vaccination: Yes Immunization Up to Date: Yes - Psycho Social/Smoking Cessation Hx Smoking Status: No Smoking History: Never smoked Years of Tobacco Use: 0 Have you smoked in the past 12 months: No Number of Cigarettes Smoked Daily: 1 Cigars Per Day: 0 Information on smoking cessation initiated: No Hx Alcohol Use: No Drug/Substance Use Hx: No Substance Use Type: None Hx Substance Use Treatment: No *Physical Exam - Vital Signs Last Vital Signs Temp Pulse Resp BP Pulse Ox 98.3 F 106 H 18 147/99 100 11/09/19 21:15 11/09/19 21:15 11/09/19 21:15 11/09/19 21:15 11/09/19 21:15 - Physical Exam General Appearance: Yes: Appropriately Dressed Respiratory/Chest: positive: Lungs Clear, Normal Breath Sounds Gastrointestinal/Abdominal: positive: Normal Bowel Sounds, Tender (generalized ) , Soft Integumentary: positive: Normal Color, Dry, Warm Neurologic: positive: Fully Oriented, Alert ED Treatment Course - LABORATORY CBC & Chemistry Diagram: 11/11/19 07:15 11/11/19 07:15 ED Progress Note - Progress Note Progress Note: 11/10/19 00:4 a: DKA P: CBC CMP Beta hydroxy: 18 Blood sugar 401 IVF 11/10/19 03:53 EKG: NSR: 94bpm Medical Decision Making - Medical Decision Making 11/10/19 01:07 will repeat BMP and beta hydroxy. patient is no longer vomiting. discussed with Korin WALTERS (Hospitalist) 11/10/19 03:28 patient is unable to tolerate PO. patient is dizzy. will continue IV hydration and admit. patiet has epigastric tenderness. no lower abdominal pain. 11/10/19 03:52 Discharge - Discharge Information Problems reviewed: Yes Clinical Impression/Diagnosis: DKA (diabetic ketoacidoses) Qualifiers: Diabetes mellitus type: due to underlying condition Diabetes mellitus complication detail: without coma Qualified Code(s): E08.10 - Diabetes mellitus due to underlying condition with ketoacidosis without coma Nausea & vomiting Qualifiers: Vomiting type: unspecified Vomiting Intractability: non-intractable Qualified Code(s): R11.2 - Nausea with vomiting, unspecified Condition: Improved Disposition: HOME - Admission Yes - Follow up/Referral - Patient Discharge Instructions - Post Discharge Activity
[2019-11-09] MEDS ORDERED: SODIUM CHLORIDE 1,000 ML IV STA ×2 (21:39→23:56)
[2019-11-09] MEDS ORDERED: ONDANSETRON 4 MG/2 ML VIAL IVPB ONE (21:40)
[2019-11-09] MEDS ORDERED: ONDANSETRON 4 MG/2 ML VIAL ONE (22:39)
[2019-11-09 22:47] LABS: BASO % 0.9 % (0-2.0); EOS % 0.6 % (0-4.5); HEMOGLOBIN 14.2 GM/dL (10.7-15.3); LYMPH % 21.7 % (8-40); MCH 28.4 pg (25.7-33.7); MCHC 34.6 g/dl (32.0-36.0); MEAN CELL VOLUME 82.3 fl (80-96); MEAN PLT VOLUME 7.2 fl (7.5-11.1); MONO % 4.8 % (3.8-10.2); PLATELET COUNT 285 K/MM3 (134-434); RBC 4.98 M/mm3 (3.60-5.2); RDW 13.6 % (11.6-15.6)
[2019-11-09 22:48] LABS: VENOUS PC02 38.7 mmHg (38-52); VENOUS PH 7.42 (7.31-7.41)
[2019-11-09 22:50] LABS: VENOUS PO2 < 49 mmHg (28-48)
[2019-11-09 23:01] LABS: INR 1.07 (0.83-1.09); PROTHROMBIN TIME (PATIENT) 12.6 SEC (9.7-13.0)
[2019-11-09 23:04] LABS: ACTIVATED PTT 31.7 SECONDS (25.2-36.5)
[2019-11-09 23:19] LABS: ALK PHOS 149 U/L (45-117); ANION GAP 13 MMOL/L (8-16); BILIRUBIN,TOTAL 0.7 mg/dL (0.2-1); BLOOD UREA NITROGEN 7.6 mg/dL (7-18); CALCIUM 9.1 mg/dL (8.5-10.1); CHLORIDE 96 mmol/L (98-107); CO2 23 mmol/L (21-32); CREATININE 0.7 mg/dL (0.55-1.3); POTASSIUM 4.1 mmol/L (3.5-5.1); SGOT/AST 22 U/L (15-37); SGPT/ALT 30 U/L (13-61); SODIUM 131 mmol/L (136-145); TOT PROT 7.5 g/dl (6.4-8.2)
[2019-11-09 23:26] LABS: GLUCOSE,RANDOM 405 mg/dL (74-106)
[2019-11-09 23:42] LABS: EPI CELLS 3.5 /HPF (0-5/HPF); HYALINE CASTS 2 /lpf (0-8); URINE APPEARANCE CLEAR; URINE BILIRUBIN NEGATIVE (NEGATIVE); URINE COLOR YELLOW; URINE GLUCOSE (UA) 3+ (NEGATIVE); URINE KETONE 4+ (NEGATIVE); URINE LEUK ESTERASE NEGATIVE (NEGATIVE); URINE NITRITE NEGATIVE (NEGATIVE); URINE PROTEIN 1+ (NEGATIVE); URINE RBC 1 /hpf (0-4); URINE UROBILINOGEN 0.2 mg/dL (0.2-1.0); URINE WBC 4 /hpf (0-5)
[2019-11-10] MEDS ORDERED: FAMOTIDINE 20 MG/50 ML IVPB 20 MG/50 ML MG IVPB ONE ×2 (01:52→02:04)
[2019-11-10] MEDS ORDERED: IPRATROPIUM BR 0.02% 0.5 MG/2.5 ML VIAL.NEB. NEB ONE (02:51)
[2019-11-10] MEDS: SODIUM CHLORIDE 1,000 ML IV SCH ×2 (02:51→07:14)
[2019-11-10] MEDS ORDERED: FUROSEMIDE 40 MG/4 ML INJECTABLE VIAL IVPUSH ONE (02:51)
[2019-11-10] MEDS ORDERED: ALBUTEROL SO4 0.083% IH SOL 2.5 MG/3 ML VIAL.NEB. NEB ONE (02:51)
[2019-11-10] MEDS ORDERED: CLINDAMYCIN 600MG PREMIX IVPB 600 MG/50 ML BAG IVPB ONE (02:51)
[2019-11-10] MEDS ORDERED: oxyCODONE HCL 5 MG TABLET PO ONE (02:54)
[2019-11-10] MEDS ORDERED: INSULIN REGULAR HUMAN 100 UNITS/ML *VIAL IVPUSH ONE (02:59)
[2019-11-10 03:13] LABS: BLOOD UREA NITROGEN 6.7 mg/dL (7-18); CALCIUM 7.7 mg/dL (8.5-10.1); CREATININE 0.5 mg/dL (0.55-1.3); POTASSIUM 3.9 mmol/L (3.5-5.1)
[2019-11-10] MEDS ORDERED: INSULIN REGULAR HUMAN 100 UNITS/ML *VIAL ONE ×2 (03:37→06:28)
[2019-11-10] MEDS ORDERED: METOCLOPRAMIDE HCL INJECTION 10 MG/2 ML VIAL IVPB ONE (03:44)
[2019-11-10] MEDS ORDERED: METOCLOPRAMIDE HCL INJECTION 10 MG/2 ML VIAL ONE (03:54)
--- NOTE | 2019-11-10 05:11 | HP ---
CHIEF COMPLAINT: N/V PCP: Bruce HISTORY OF PRESENT ILLNESS: This is a 44yF with PMH DM, HTN, HLD who presented to the ED with N/V since in the afternoon. Pt denies fever, chills, cough, SOB, chest pain, palpitations. She reports epigastric pain with poor po intake for past several days. She also reports dysuria but denies frequency. ER course was notable for: (1) beta hydroxybutyrate 18.6, glucose 406, pH 7.42, anion gap 13 (2) unable to tolerate PO despite zofran Recent Travel: pt denies PAST MEDICAL HISTORY: HTN, HLD, DM PAST SURGICAL HISTORY: hysterectomy cholecystectomy Family History: mother, father, siblings all alive and well; no medical problems pt reports "cancer" on her fathers side of the family Social History: Smoking: Alcohol: Drugs: Allergies acetaminophen Allergy (Intermediate, Verified 11/09/19 21:19) Swelling HOME MEDICATIONS: 3 Medication Instructions Recorded Glipizide [Glucotrol -] 10 mg PO BID 01/27/17 Insulin Glargine,Hum.rec.anlog 50 units SQ BID 01/27/17 [Lantus (10mL VIAL) -] metFORMIN HCL [Glucophage -] 500 mg PO BID 01/27/17 Metoclopramide HCl [Reglan] 10 mg PO TID PRN #20 tablet 03/28/18 Insulin (Novolog) [Novolog] See Protocol SQ TIDCM 10/17/19 Simvastatin [Zocor] 20 mg PO HS 10/17/19 Enalapril Maleate [Vasotec] 10 mg PO DAILY 11/10/19 traZODone HCL [Trazodone HCl] 100 mg PO HS 11/10/19 REVIEW OF SYSTEMS CONSTITUTIONAL: Present: loss of appetite Absent: fever, chills, diaphoresis, generalized weakness, malaise, weight change HEENT: Absent: rhinorrhea, nasal congestion, throat pain, throat swelling, difficulty swallowing, mouth swelling, ear pain, eye pain, visual changes CARDIOVASCULAR: Absent: chest pain, syncope, palpitations, irregular heart rate, lightheadedness , peripheral edema RESPIRATORY: Absent: cough, shortness of breath, dyspnea with exertion, orthopnea, wheezing, stridor, hemoptysis GASTROINTESTINAL: Present: nausea, vomiting Absent: abdominal pain, abdominal distension, diarrhea, constipation, melena, hematochezia GENITOURINARY: Present: dysuria Absent: frequency, urgency, hesitancy, hematuria, flank pain, genital pain MUSCULOSKELETAL: Absent: myalgia, arthralgia, joint swelling, back pain, neck pain SKIN: Absent: rash, itching, pallor HEMATOLOGIC/IMMUNOLOGIC: Absent: easy bleeding, easy bruising, lymphadenopathy, frequent infections ENDOCRINE: Absent: unexplained weight gain, unexplained weight loss, heat intolerance, cold intolerance NEUROLOGIC: Absent: headache, focal weakness or paresthesias, dizziness, unsteady gait, seizure, mental status changes, bladder or bowel incontinence PSYCHIATRIC: Absent: anxiety, depression, suicidal or homicidal ideation, hallucinations. PHYSICAL EXAMINATION Vital Signs - 24 hr 3 11/09/19 11/10/19 21:15 02:48 Temperature 98.3 F 98.4 F Pulse Rate 106 H Pulse Rate [ 92 H Left] Respiratory 18 18 Rate Blood Pressure 147/99 Blood Pressure 126/78 [Right Arm] O2 Sat by Pulse 100 99 Oximetry (%) GENERAL: Awake, alert, and fully oriented, in no acute distress. HEAD: Normal with no signs of trauma. EYES: Pupils equal, round and reactive to light, extraocular movements intact, sclera anicteric, conjunctiva clear. No lid lag. EARS, NOSE, THROAT: Ears normal, nares patent, oropharynx clear without exudates. Moist mucous membranes. NECK: Normal range of motion, supple without lymphadenopathy, JVD, or masses. LUNGS: Breath sounds equal, clear to auscultation bilaterally. No wheezes, and no crackles. No accessory muscle use. HEART: Regular rate and rhythm, normal S1 and S2 without murmur, rub or gallop. ABDOMEN: Soft, mild tenderness epigastric area, not distended, normoactive bowel sounds, no guarding, no rebound, no masses. No hepatomegaly or splenomegaly. MUSCULOSKELETAL: Normal range of motion at all joints. No bony deformities or tenderness. No CVA tenderness. UPPER EXTREMITIES: 2+ pulses, warm, well-perfused. No cyanosis. No clubbing. No peripheral edema. LOWER EXTREMITIES: 2+ pulses, warm, well-perfused. No calf tenderness. No peripheral edema. NEUROLOGICAL: Cranial nerves II-XII intact. Normal speech. Normal gait. PSYCHIATRIC: Cooperative. Good eye contact. Appropriate mood and affect. SKIN: Warm, dry, normal turgor, no rashes or lesions noted, normal capillary refill. Laboratory Results - last 24 hr 3 11/09/19 11/09/19 11/09/19 22:30 22:30 22:30 WBC 10.0 RBC 4.98 Hgb 14.2 Hct 41.0 D MCV 82.3 MCH 28.4 MCHC 34.6 RDW 13.6 Plt Count 285 MPV 7.2 L Absolute Neuts (auto) 7.2 Neutrophils % 72.0 D Lymphocytes % 21.7 D Monocytes % 4.8 Eosinophils % 0.6 Basophils % 0.9 Nucleated RBC % 0 PT with INR INR PTT (Actin FS) VBG pH POC VBG pCO2 POC VBG pO2 VBG HCO3 VBG O2 Sat (Willian) VBG Base Excess Sodium 131 L Potassium 4.1 Chloride 96 L Carbon Dioxide 23 Anion Gap 13 BUN 7.6 Creatinine 0.7 Est GFR (CKD-EPI)AfAm 122.99 Est GFR (CKD-EPI)NonAf 106.12 POC Glucometer Random Glucose 405 H* Calcium 9.1 Total Bilirubin 0.7 AST 22 ALT 30 Alkaline Phosphatase 149 H Creatine Kinase 103 Troponin I < 0.02 Total Protein 7.5 Albumin 4.0 Beta-Hydroxybutyrate 18.6 H Urine Color Urine Appearance Urine pH Ur Specific Paragon Urine Protein Urine Glucose (UA) Urine Ketones Urine Blood Urine Nitrite Urine Bilirubin Urine Urobilinogen Ur Leukocyte Esterase Urine WBC (Auto) Urine RBC (Auto) Urine Casts (Auto) U Epithel Cells (Auto) Urine Bacteria (Auto) Urine HCG, Qual 3 11/09/19 11/09/19 11/09/19 22:30 22:30 23:10 WBC RBC Hgb Hct MCV MCH MCHC RDW Plt Count MPV Absolute Neuts (auto) Neutrophils % Lymphocytes % Monocytes % Eosinophils % Basophils % Nucleated RBC % PT with INR 12.60 INR 1.07 PTT (Actin FS) 31.7 VBG pH 7.42 H POC VBG pCO2 38.7 POC VBG pO2 < 49 H VBG HCO3 24.5 VBG O2 Sat (Willian) 70.3 VBG Base Excess 0.7 Sodium Potassium Chloride Carbon Dioxide Anion Gap BUN Creatinine Est GFR (CKD-EPI)AfAm Est GFR (CKD-EPI)NonAf POC Glucometer Random Glucose Calcium Total Bilirubin AST ALT Alkaline Phosphatase Creatine Kinase Troponin I Total Protein Albumin Beta-Hydroxybutyrate Urine Color Yellow Urine Appearance Clear Urine pH 5.0 D Ur Specific Paragon 1.042 H Urine Protein 1+ H Urine Glucose (UA) 3+ H Urine Ketones 4+ H Urine Blood Negative Urine Nitrite Negative Urine Bilirubin Negative Urine Urobilinogen 0.2 Ur Leukocyte Esterase Negative Urine WBC (Auto) 4 Urine RBC (Auto) 1 Urine Casts (Auto) 2 U Epithel Cells (Auto) 3.5 Urine Bacteria (Auto) 388.0 Urine HCG, Qual 3 11/09/19 11/10/19 11/10/19 23:10 01:48 02:00 WBC RBC Hgb Hct MCV MCH MCHC RDW Plt Count MPV Absolute Neuts (auto) Neutrophils % Lymphocytes % Monocytes % Eosinophils % Basophils % Nucleated RBC % PT with INR INR PTT (Actin FS) VBG pH POC VBG pCO2 POC VBG pO2 VBG HCO3 VBG O2 Sat (Willian) VBG Base Excess Sodium 135 L Potassium 3.9 Chloride 104 Carbon Dioxide 22 Anion Gap 8 BUN 6.7 L Creatinine 0.5 L Est GFR (CKD-EPI)AfAm 137.39 Est GFR (CKD-EPI)NonAf 118.54 POC Glucometer 320 Random Glucose 322 H Calcium 7.7 L Total Bilirubin AST ALT Alkaline Phosphatase Creatine Kinase Troponin I Total Protein Albumin Beta-Hydroxybutyrate 17.4 H Urine Color Urine Appearance Urine pH Ur Specific Paragon Urine Protein Urine Glucose (UA) Urine Ketones Urine Blood Urine Nitrite Urine Bilirubin Urine Urobilinogen Ur Leukocyte Esterase Urine WBC (Auto) Urine RBC (Auto) Urine Casts (Auto) U Epithel Cells (Auto) Urine Bacteria (Auto) Urine HCG, Qual Negative ASSESSMENT/PLAN: 44yF with PMH DM, HTN, HLD presented to the ED with nausea, vomiting, epigastric pain being admitted for hyperglycemia, inability to tolerate PO. Hyperglycemia - elevated beta-hydroxybutyrate but normal, pH, CO2, bicarb and anion gap, doubtful true DKA - BGM q4h with novolog sliding scale - will reduce home long acting insulin by 50% to 25u BID while not tolerating po , increase when po intake improves nausea/vomiting likely d/t gastroparesis - reglan IV while remains nauseas, convert to po when tolerating - add famotidine HTN/HLD - cont home vasotec and convert home zocor to formulary lipitor DVT PPX - deferred, pt fully ambulatory and less than 50y FEN - NS @ 150cc/hr - monitor lytes, replete as indicated - clear liquid diet, advance as tolerated Dispo: Pt currently requires further inpatient management of her emergent condition. Family Medical History Family History: Unremarkable Visit type - Emergency Visit Emergency Visit: Yes ED Registration Date: 11/10/19 Care time: The patient presented to the Emergency Department on the above date and was hospitalized for further evaluation of their emergent condition. - New Patient This patient is new to me today: Yes Date on this admission: 11/10/19 - Critical Care Critical Care patient: No
[2019-11-10] MEDS ORDERED: INSULIN (NOVOLOG) ASPART 100 UNITS/ML 10ML VIAL SQ SCH (06:00)
[2019-11-10 06:41] LABS: BASO % 0.8 % (0-2.0); EOS % 0.9 % (0-4.5); HEMATOCRIT 33.5 % (32.4-45.2); HEMOGLOBIN 11.8 GM/dL (10.7-15.3); LYMPH % 32.7 % (8-40); MCH 28.6 pg (25.7-33.7); MCHC 35.3 g/dl (32.0-36.0); MEAN CELL VOLUME 81.1 fl (80-96); MONO % 5.5 % (3.8-10.2); NEUT % 60.1 % (42.8-82.8); PLATELET COUNT 254 K/MM3 (134-434); RBC 4.13 M/mm3 (3.60-5.2); RDW 13.7 % (11.6-15.6); WHITE BLOOD COUNT 8.6 K/mm3 (4.0-10.0)
[2019-11-10 07:12] LABS: BLOOD UREA NITROGEN 5.8 mg/dL (7-18); CALCIUM 7.3 mg/dL (8.5-10.1); CREATININE 0.5 mg/dL (0.55-1.3); MAGNESIUM 1.5 mg/dL (1.8-2.4); PHOSPHOROUS 2.1 mg/dL (2.5-4.9); POTASSIUM 3.5 mmol/L (3.5-5.1)
[2019-11-10] MEDS: METOCLOPRAMIDE HCL INJECTION 10 MG/2 ML VIAL IVPUSH SCH ×3 (07:47→15:56)
[2019-11-10] MEDS ORDERED: METOCLOPRAMIDE HCL INJECTION 10 MG/2 ML VIAL IVPUSH SCH (08:00)
[2019-11-10 08:56] VITALS: BMI 30.9
[2019-11-10] MEDS: FAMOTIDINE 20 MG/50 ML IVPB 20 MG/50 ML MG IVPB SCH ×2 (09:23→21:19)
[2019-11-10] MEDS: ENALAPRIL MALEATE 10 MG TABLET (FP) PO SCH (09:23)
[2019-11-10] MEDS: INSULIN (LEVEMIR) 100 UNITS/ML UNITS SQ SCH ×2 (09:23→21:21)
[2019-11-10] MEDS: INSULIN SLIDING SCALE (NOVOLOG) 1 VIAL SQ SCH ×4 (09:33→19:54)
[2019-11-10] MEDS ORDERED: NAPH,MB-DB/K PH,MBDB POWDER PACKET PO ONE (11:00)
[2019-11-10] MEDS ORDERED: MAGNESIUM SULF 50% (8.12 MEQ/2 ML-1 GM VIAL) IVPB ONE (11:00)
--- NOTE | 2019-11-10 11:31 | PN ---
Progress Note (short form) - Note Progress Note: Events noted has abd pain nausea Vital Signs - 24 hr 11/09/19 11/10/19 11/10/19 21:15 02:48 06:37 Temperature 98.3 F 98.4 F Pulse Rate 106 H Pulse Rate [ 92 H Left] Pulse Rate [ 94 H Right Radial] Respiratory 18 18 16 Rate Blood Pressure 147/99 Blood Pressure 126/78 135/82 [Right Arm] O2 Sat by Pulse 100 99 96 Oximetry (%) 11/10/19 11/10/19 08:49 09:00 Temperature 97.8 F Pulse Rate 91 H Pulse Rate [ Left] Pulse Rate [ Right Radial] Respiratory 16 16 Rate Blood Pressure 146/98 Blood Pressure [Right Arm] O2 Sat by Pulse 96 96 Oximetry (%) Current Medications Generic Name Dose Route Start Last Admin Trade Name Freq PRN Reason Stop Dose Admin Atorvastatin Calcium 10 mg 11/10/19 22:00 Lipitor - PO HS KINGS Enalapril Maleate 10 mg 11/10/19 10:00 11/10/19 09:23 Vasotec - PO 10 mg DAILY KINGS Administration Sodium Chloride 1,000 mls @ 150 mls/hr 11/10/19 02:15 11/10/19 02:51 Normal Saline - IV 150 mls/hr ASDIR KINGS Administration Famotidine/Sodium Chloride 20 mg in 50 mls @ 100 mls/hr 11/10/19 10:00 09:23 Pepcid 20 Mg Premixed Ivpb - IVPB 100 mls/hr BID KINGS Administration Sodium Chloride 1,000 mls @ 150 mls/hr 11/10/19 05:15 11/10/19 07:14 Normal Saline - IV 150 mls/hr ASDIR KINGS Administration Insulin Aspart 1 vial 11/10/19 07:30 11/10/19 09:33 Novolog Vial Sliding Scale - SQ 4 units Q4H KINGS Administration Protocol Insulin Detemir 25 units 11/10/19 07:45 11/10/19 09:23 Levemir Vial SQ 25 units BID@0700,2200 KINGS Administration Metoclopramide HCl 10 mg 11/10/19 07:00 11/10/19 11:10 Reglan Injection - IVPUSH 10 mg TIDAC KINGS Administration Trazodone HCl 100 mg 11/10/19 22:00 Desyrel - PO HS KINGS Laboratory Results - last 24 hr 11/09/19 11/09/19 11/09/19 22:30 22:30 22:30 WBC 10.0 RBC 4.98 Hgb 14.2 Hct 41.0 D MCV 82.3 MCH 28.4 MCHC 34.6 RDW 13.6 Plt Count 285 MPV 7.2 L Absolute Neuts (auto) 7.2 Neutrophils % 72.0 D Lymphocytes % 21.7 D Monocytes % 4.8 Eosinophils % 0.6 Basophils % 0.9 Nucleated RBC % 0 PT with INR INR PTT (Actin FS) VBG pH POC VBG pCO2 POC VBG pO2 VBG HCO3 VBG O2 Sat (Willian) VBG Base Excess Sodium 131 L Potassium 4.1 Chloride 96 L Carbon Dioxide 23 Anion Gap 13 BUN 7.6 Creatinine 0.7 Est GFR (CKD-EPI)AfAm 122.99 Est GFR (CKD-EPI)NonAf 106.12 POC Glucometer Random Glucose 405 H* Calcium 9.1 Phosphorus Magnesium Total Bilirubin 0.7 AST 22 ALT 30 Alkaline Phosphatase 149 H Creatine Kinase 103 Troponin I < 0.02 Total Protein 7.5 Albumin 4.0 Beta-Hydroxybutyrate 18.6 H Urine Color Urine Appearance Urine pH Ur Specific [place] Urine Protein Urine Glucose (UA) Urine Ketones Urine Blood Urine Nitrite Urine Bilirubin Urine Urobilinogen Ur Leukocyte Esterase Urine WBC (Auto) Urine RBC (Auto) Urine Casts (Auto) U Epithel Cells (Auto) Urine Bacteria (Auto) Urine HCG, Qual 11/09/19 11/09/19 11/09/19 22:30 22:30 23:10 WBC RBC Hgb Hct MCV MCH MCHC RDW Plt Count MPV Absolute Neuts (auto) Neutrophils % Lymphocytes % Monocytes % Eosinophils % Basophils % Nucleated RBC % PT with INR 12.60 INR 1.07 PTT (Actin FS) 31.7 VBG pH 7.42 H POC VBG pCO2 38.7 POC VBG pO2 < 49 H VBG HCO3 24.5 VBG O2 Sat (Willian) 70.3 VBG Base Excess 0.7 Sodium Potassium Chloride Carbon Dioxide Anion Gap BUN Creatinine Est GFR (CKD-EPI)AfAm Est GFR (CKD-EPI)NonAf POC Glucometer Random Glucose Calcium Phosphorus Magnesium Total Bilirubin AST ALT Alkaline Phosphatase Creatine Kinase Troponin I Total Protein Albumin Beta-Hydroxybutyrate Urine Color Yellow Urine Appearance Clear Urine pH 5.0 D Ur Specific [place] 1.042 H Urine Protein 1+ H Urine Glucose (UA) 3+ H Urine Ketones 4+ H Urine Blood Negative Urine Nitrite Negative Urine Bilirubin Negative Urine Urobilinogen 0.2 Ur Leukocyte Esterase Negative Urine WBC (Auto) 4 Urine RBC (Auto) 1 Urine Casts (Auto) 2 U Epithel Cells (Auto) 3.5 Urine Bacteria (Auto) 388.0 Urine HCG, Qual 11/09/19 11/10/19 11/10/19 23:10 01:48 02:00 WBC RBC Hgb Hct MCV MCH MCHC RDW Plt Count MPV Absolute Neuts (auto) Neutrophils % Lymphocytes % Monocytes % Eosinophils % Basophils % Nucleated RBC % PT with INR INR PTT (Actin FS) VBG pH POC VBG pCO2 POC VBG pO2 VBG HCO3 VBG O2 Sat (Willian) VBG Base Excess Sodium 135 L Potassium 3.9 Chloride 104 Carbon Dioxide 22 Anion Gap 8 BUN 6.7 L Creatinine 0.5 L Est GFR (CKD-EPI)AfAm 137.39 Est GFR (CKD-EPI)NonAf 118.54 POC Glucometer 320 Random Glucose 322 H Calcium 7.7 L Phosphorus Magnesium Total Bilirubin AST ALT Alkaline Phosphatase Creatine Kinase Troponin I Total Protein Albumin Beta-Hydroxybutyrate 17.4 H Urine Color Urine Appearance Urine pH Ur Specific [place] Urine Protein Urine Glucose (UA) Urine Ketones Urine Blood Urine Nitrite Urine Bilirubin Urine Urobilinogen Ur Leukocyte Esterase Urine WBC (Auto) Urine RBC (Auto) Urine Casts (Auto) U Epithel Cells (Auto) Urine Bacteria (Auto) Urine HCG, Qual Negative 11/10/19 11/10/19 11/10/19 05:43 05:43 06:09 WBC 8.6 RBC 4.13 Hgb 11.8 Hct 33.5 D MCV 81.1 MCH 28.6 MCHC 35.3 RDW 13.7 Plt Count 254 MPV 7.0 L Absolute Neuts (auto) 5.2 Neutrophils % 60.1 Lymphocytes % 32.7 D Monocytes % 5.5 Eosinophils % 0.9 Basophils % 0.8 Nucleated RBC % 0 PT with INR INR PTT (Actin FS) VBG pH POC VBG pCO2 POC VBG pO2 VBG HCO3 VBG O2 Sat (Willian) VBG Base Excess Sodium 138 Potassium 3.5 Chloride 107 Carbon Dioxide 22 Anion Gap 9 BUN 5.8 L Creatinine 0.5 L Est GFR (CKD-EPI)AfAm 137.39 Est GFR (CKD-EPI)NonAf 118.54 POC Glucometer 247 Random Glucose 231 H Calcium 7.3 L Phosphorus 2.1 L Magnesium 1.5 L Total Bilirubin AST ALT Alkaline Phosphatase Creatine Kinase Troponin I Total Protein Albumin Beta-Hydroxybutyrate Urine Color Urine Appearance Urine pH Ur Specific [place] Urine Protein Urine Glucose (UA) Urine Ketones Urine Blood Urine Nitrite Urine Bilirubin Urine Urobilinogen Ur Leukocyte Esterase Urine WBC (Auto) Urine RBC (Auto) Urine Casts (Auto) U Epithel Cells (Auto) Urine Bacteria (Auto) Urine HCG, Qual 11/10/19 08:40 WBC RBC Hgb Hct MCV MCH MCHC RDW Plt Count MPV Absolute Neuts (auto) Neutrophils % Lymphocytes % Monocytes % Eosinophils % Basophils % Nucleated RBC % PT with INR INR PTT (Actin FS) VBG pH POC VBG pCO2 POC VBG pO2 VBG HCO3 VBG O2 Sat (Willian) VBG Base Excess Sodium Potassium Chloride Carbon Dioxide Anion Gap BUN Creatinine Est GFR (CKD-EPI)AfAm Est GFR (CKD-EPI)NonAf POC Glucometer 266 Random Glucose Calcium Phosphorus Magnesium Total Bilirubin AST ALT Alkaline Phosphatase Creatine Kinase Troponin I Total Protein Albumin Beta-Hydroxybutyrate Urine Color Urine Appearance Urine pH Ur Specific [place] Urine Protein Urine Glucose (UA) Urine Ketones Urine Blood Urine Nitrite Urine Bilirubin Urine Urobilinogen Ur Leukocyte Esterase Urine WBC (Auto) Urine RBC (Auto) Urine Casts (Auto) U Epithel Cells (Auto) Urine Bacteria (Auto) Urine HCG, Qual No pallor S1 S2 RRR Lungs clear Abd- soft, tender epigastrium No edema ASSESSMENT/PLAN: 44yF with PMH DM, HTN, HLD presented to the ED with nausea, vomiting, epigastric pain being admitted for hyperglycemia, inability to tolerate PO. Hyperglycemia - elevated beta-hydroxybutyrate but normal, pH, CO2, bicarb and anion gap, doubtful true DKA - BGM q4h with novolog sliding scale -Endocrinology eval nausea/vomiting likely d/t gastroparesis - reglan IV while remains nauseous, convert to po when tolerating - add famotidine advance to full liquid diet HTN/HLD - cont home vasotec and lipitor DVT PPX - lovenox - pt sedentary FEN - NS @ 150cc/hr - monitor lytes, replete as indicated replete mag and phos Problem List - Problems (1) Gastroparesis Code(s): K31.84 - GASTROPARESIS (2) DKA (diabetic ketoacidoses) Code(s): E11.10 - TYPE 2 DIABETES MELLITUS WITH KETOACIDOSIS WITHOUT COMA Qualifiers: Diabetes mellitus type: due to underlying condition Diabetes mellitus complication detail: without coma Qualified Code(s): E08.10 - Diabetes mellitus due to underlying condition with ketoacidosis without coma (3) Nausea & vomiting Code(s): R11.2 - NAUSEA WITH VOMITING, UNSPECIFIED Qualifiers: Vomiting type: unspecified Vomiting Intractability: non-intractable Qualified Code(s): R11.2 - Nausea with vomiting, unspecified (4) Acute hyperglycemia Code(s): R73.9 - HYPERGLYCEMIA, UNSPECIFIED
[2019-11-10] MEDS: ENOXAPARIN NA (PORCINE) 40 MG/0.4 ML DISP.SYRIN SQ SCH (14:34)
--- NOTE | 2019-11-10 16:41 | EKG ---
Test Reason : Blood Pressure : / mmHG Vent. Rate : 094 BPM Atrial Rate : 094 BPM P-R Int : 172 ms QRS Dur : 064 ms QT Int : 394 ms P-R-T Axes : 046 017 029 degrees QTc Int : 492 ms NORMAL SINUS RHYTHM LOW VOLTAGE QRS CANNOT RULE OUT ANTEROSEPTAL INFARCT (CITED ON OR BEFORE 25-DEC-2018) ABNORMAL ECG Confirmed by MD JETHRO, SHANTAL ([id number]) on 11/10/2019 4:40:40 PM Referred By: Confirmed By:SHANTAL MORELOS MD
[2019-11-10] MEDS ORDERED: ATORVASTATIN CA 10 MG TABLET (FP) PO SCH (22:00)
[2019-11-10] MEDS ORDERED: traZODone HCL 50 MG TABLET (FP) PO SCH (22:00)
[2019-11-11] MEDS: SODIUM CHLORIDE 1,000 ML IV SCH ×2 (01:35→06:04)
[2019-11-11] MEDS: INSULIN SLIDING SCALE (NOVOLOG) 1 VIAL SQ SCH ×4 (03:30→11:18)
[2019-11-11] MEDS: METOCLOPRAMIDE HCL INJECTION 10 MG/2 ML VIAL IVPUSH SCH ×2 (06:02→11:40)
[2019-11-11] MEDS: INSULIN (LEVEMIR) 100 UNITS/ML UNITS SQ SCH (06:18)
[2019-11-11 08:41] LABS: BASO % 0.8 % (0-2.0); EOS % 1.3 % (0-4.5); HEMATOCRIT 35.6 % (32.4-45.2); LYMPH % 31.6 % (8-40); MCH 28.5 pg (25.7-33.7); MCHC 33.7 g/dl (32.0-36.0); MEAN CELL VOLUME 84.5 fl (80-96); MEAN PLT VOLUME 7.3 fl (7.5-11.1); MONO % 5.9 % (3.8-10.2); NEUT % 60.4 % (42.8-82.8); PLATELET COUNT 222 K/MM3 (134-434); RBC 4.21 M/mm3 (3.60-5.2); WHITE BLOOD COUNT 6.8 K/mm3 (4.0-10.0)
--- NOTE | 2019-11-11 08:56 | CONSULT ---
Consult Consult Specialty:: Endocrinology Reason for Consultation:: Hyperglycemia - History of Present Illness Chief Complaint: Nausea, vomiting History of Present Illness: This is a 44-year-old female with history of T2DM for about 10 years, on Insulin for about 7 to 8, HTN, HLD admitted with c/o nausea vomiting and generalized abdominal pain since yesterday morning. Patient reports that she checked her sugar this morning and it was 190. Patient reports feeling fatigued due to the frequent episodes of vomiting. Denies urinary symptoms, chest pain. FS at home 200 to 300s. No Hypos. Takes Lantus 50 units daily with Humalot 10 to 15 units with meals, Metformin, Glipizide and Victoza. Last Victoza dose 2 days before admission. - History Source History Provided By: Patient, Medical Record Limitations to Obtaining History: No Limitations - Past Medical History Cardio/Vascular: Yes: HTN, Hyperlipdemia Endocrine: Yes: Diabetes Mellitus - Alcohol/Substance Use Hx Alcohol Use: No - Smoking History Smoking history: Never smoked Have you smoked in the past 12 months: No Aproximately how many cigarettes per day: 1 Home Medications - Allergies Allergies/Adverse Reactions: Allergies Allergy/AdvReac Type Severity Reaction Status Date / Time acetaminophen Allergy Intermediate Swelling Verified 11/09/19 21:19 - Home Medications Home Medications: Ambulatory Orders Glipizide [Glucotrol -] 10 mg PO BID 01/27/17 Insulin Glargine,Hum.rec.anlog [Lantus (10mL VIAL) -] 50 units SQ BID 01/27/17 metFORMIN HCL [Glucophage -] 500 mg PO BID 01/27/17 Metoclopramide HCl [Reglan] 10 mg PO TID PRN #20 tablet 03/28/18 Insulin (Novolog) [Novolog] See Protocol SQ TIDCM 10/17/19 Simvastatin [Zocor] 20 mg PO HS 10/17/19 Enalapril Maleate [Vasotec] 10 mg PO DAILY 11/10/19 traZODone HCL [Trazodone HCl] 100 mg PO HS 11/10/19 Family Medical History Other Family History: No family h/o DM Review of Systems - Review of Systems Constitutional: reports: Loss of Appetite, Malaise Eyes: reports: No Symptoms HENT: reports: No Symptoms Neck: reports: No Symptoms Cardiovascular: reports: No Symptoms Respiratory: reports: No Symptoms Gastrointestinal: reports: Abdominal Pain, Nausea, Vomiting Musculoskeletal: reports: No Symptoms Integumentary: reports: No Symptoms Neurological: reports: No Symptoms Endocrine: reports: No Symptoms Physical Exam Vital Signs: Vital Signs Temperature 98.3 F 11/11/19 05:40 Pulse Rate 93 H 11/11/19 05:40 Respiratory Rate 11/11/19 05:40 Blood Pressure 103/66 11/11/19 05:40 O2 Sat by Pulse Oximetry (%) 97 11/10/19 20:29 Constitutional: Yes: No Distress, Calm Eyes: Yes: Conjunctiva Clear, EOM Intact HENT: Yes: Atraumatic, Normocephalic Neck: Yes: Supple, Trachea Midline Cardiovascular: Yes: Regular Rate and Rhythm Respiratory: Yes: Regular, CTA Bilaterally Gastrointestinal: Yes: Normal Bowel Sounds, Soft, Tenderness, Epigastrium, Other (No rebound tenderness) Musculoskeletal: Yes: WNL Extremities: Yes: WNL Edema: No Labs: CBC, BMP 11/11/19 07:15 Assessment/Plan AP: Abd Pain: T2DM HTN HLD Labs for Amylase and Lipase now Monitor BGM Novolog SS coverage Hold Levemir for now. IV hydration IV hydration Diet as tolerated.
[2019-11-11 09:22] LABS: ALBUMIN 2.8 g/dl (3.4-5.0); BILIRUBIN,TOTAL 0.4 mg/dL (0.2-1); CALCIUM 7.5 mg/dL (8.5-10.1); CREATININE 0.5 mg/dL (0.55-1.3); MAGNESIUM 2.4 mg/dL (1.8-2.4); PHOSPHOROUS 2.9 mg/dL (2.5-4.9); POTASSIUM 3.3 mmol/L (3.5-5.1); TOT PROT 5.2 g/dl (6.4-8.2)
[2019-11-11 09:24] LABS: BLOOD UREA NITROGEN 2.4 mg/dL (7-18)
[2019-11-11] MEDS: ENALAPRIL MALEATE 10 MG TABLET (FP) PO SCH (10:02)
[2019-11-11] MEDS: FAMOTIDINE 20 MG/50 ML IVPB 20 MG/50 ML MG IVPB SCH (10:02)
[2019-11-11] MEDS: ENOXAPARIN NA (PORCINE) 40 MG/0.4 ML DISP.SYRIN SQ SCH (10:02)
[2019-11-11] MEDS ORDERED: POTASSIUM CHLORIDE TABS 20 MEQ TABLET.ER (FP) PO ONE (10:09)
[2019-11-11 11:25] VITALS: BP 108/71; PULSE 81; TEMP 98
--- NOTE | 2019-11-11 11:54 | DS ---
Physical Examination Vital Signs: Vital Signs Temperature 98.0 F 11/11/19 10:00 Pulse Rate 81 11/11/19 10:00 Respiratory Rate 20 11/11/19 10:00 Blood Pressure 108/71 11/11/19 10:00 O2 Sat by Pulse Oximetry (%) 97 11/10/19 20:29 Constitutional: Yes: No Distress, Calm Cardiovascular: Yes: Regular Rate and Rhythm Respiratory: Yes: CTA Bilaterally Gastrointestinal: Yes: Normal Bowel Sounds, Soft, Abdomen, Obese. No: Tenderness Edema: No Labs: CBC, BMP 11/11/19 07:15 11/11/19 07:15 Discharge Summary Problems reviewed: Yes Reason For Visit: DIABETIC KETOACIDOSIS, NEAUSEA AND VOMITING Current Active Problems DKA (diabetic ketoacidoses) (Acute) Gastritis (Acute) Gastroparesis (Acute) Nausea & vomiting (Acute) Hospital Course: admitted for uncontrolled DM, hyperosmolar state She was seen by Endocrinology Sugars better controlled abd pain -- decreased-- due to gastroparesis stable for dc to home Condition: Improved - Instructions Diet, Activity, Other Instructions: monitor sugars three times a day and log this down--bring your log readings to your next visit with DR Moser-- should schedule in 3-4 days Referrals: Jacinda Barrera MD [Primary Care Provider] - Disposition: HOME - Home Medications Comprehensive Discharge Medication List: Ambulatory Orders Glipizide [Glucotrol -] 10 mg PO BID 01/27/17 Insulin Glargine,Hum.rec.anlog [Lantus (10mL VIAL) -] 50 units SQ BID 01/27/17 metFORMIN HCL [Glucophage -] 500 mg PO BID 01/27/17 Metoclopramide HCl [Reglan] 10 mg PO TID PRN #20 tablet 03/28/18 Insulin (Novolog) [Novolog] See Protocol SQ TIDCM 10/17/19 Simvastatin [Zocor] 20 mg PO HS 10/17/19 Enalapril Maleate [Vasotec] 10 mg PO DAILY 11/10/19 traZODone HCL [Trazodone HCl] 100 mg PO HS 11/10/19
== END 2019-11-11 13:19 | disposition home or self-care (01) | DRG 48 ==
LOC: JER 20:58 → JERBED 11-10 00:45 → J6S 11-10 08:25
PROVIDERS: ADMIT Internal Medicine; ATTEND Internal Medicine
DX: E11.43 Type 2 diabetes mellitus with diabetic autonomic (poly)neuropathy (principal); E11.10 Type 2 diabetes mellitus with ketoacidosis without coma; I10 Essential (primary) hypertension; E78.5 Hyperlipidemia, unspecified; E11.65 Type 2 diabetes mellitus with hyperglycemia; R30.0 Dysuria; K31.84 Gastroparesis
CPT/HCPCS: 36415; 80048; 80053; 81003; 82010; 82150; 82550; 82803; 82962; 83690; 83735; 84100; 84484; 84703; 85025; 85610; 85730; 93005; 93010; 99285-25; J7030

== ENCOUNTER 2020-03-06 14:28 | Emergency (ER) | payer OTHER ==
[2020-03-06] MEDS ORDERED: SODIUM CHLORIDE 1,000 ML IV STA (14:39)
[2020-03-06] MEDS ORDERED: ONDANSETRON 4 MG/2 ML VIAL IVPUSH ONE (14:39)
[2020-03-06 14:40] VITALS: TEMP 98.2; BMI 30.9
[2020-03-06 15:17] LABS: VENOUS BASE EXCESS 2.9 mmol/L (-2-2); VENOUS O2 SATURATION 94.5 % (70-80); VENOUS PCO2 32.8 mmHg (38-52); VENOUS PH 7.508 (7.310-7.410)
[2020-03-06 15:21] LABS: BASO % 0.6 % (0-2.0); EOS % 0.6 % (0-4.5); HEMOGLOBIN 12.7 GM/dL (10.7-15.3); MCHC 34.3 g/dl (32.0-36.0); MEAN CELL VOLUME 84.6 fl (80-96); MEAN PLT VOLUME 6.9 fl (7.5-11.1); MONO % 4.1 % (3.8-10.2); NEUT % 74.7 % (42.8-82.8); PLATELET COUNT 289 K/MM3 (134-434); RBC 4.38 M/mm3 (3.60-5.2); RDW 13.8 % (11.6-15.6); WHITE BLOOD COUNT 9.6 K/mm3 (4.0-10.0)
[2020-03-06 15:55] LABS: ALBUMIN 3.6 g/dl (3.4-5.0); BILIRUBIN,TOTAL 0.6 mg/dL (0.2-1); BLOOD UREA NITROGEN 9.5 mg/dL (7-18); CALCIUM 9.7 mg/dL (8.5-10.1); CREATININE 0.7 mg/dL (0.55-1.3); MAGNESIUM 2.2 mg/dL (1.8-2.4); POTASSIUM 3.8 mmol/L (3.5-5.1); TOT PROT 6.8 g/dl (6.4-8.2)
[2020-03-06 17:12] VITALS: BP 120/64; PULSE 80
== END 2020-03-06 17:13 | disposition home or self-care (01) ==
LOC: JER 14:28
PROC: 3E033NZ Introduction of Analgesics, Hypnotics, Sedatives into Peripheral Vein, Percutaneous Approach (ICD-10-PCS; principal; 2020-03-06)
PROC: 3E0337Z Introduction of Electrolytic and Water Balance Substance into Peripheral Vein, Percutaneous Approach (ICD-10-PCS; 2020-03-06)
DX: R11.2 Nausea with vomiting, unspecified (principal)
CPT/HCPCS: 36415; 71045-TC-FY; 80053; 82803; 83690; 83735; 85025; 93005; 93010; 99285-25

== ENCOUNTER 2020-05-13 11:15 | Emergency (ER) | payer OTHER ==
[2020-05-13 11:24] VITALS: TEMP 98.3; BMI 32.0
[2020-05-13] MEDS ORDERED: SODIUM CHLORIDE 1,000 ML IV STA ×2 (12:01→14:10)
[2020-05-13] MEDS ORDERED: ACETAMINOPHEN 1000 MG/100 ML VIAL (NON FORMULARY) IVPB ONE (12:01)
[2020-05-13] MEDS ORDERED: ACETAMINOPHEN INJECTION 100 ML IVPB ONE (12:05)
[2020-05-13 12:47] LABS: BASO % 0.8 % (0-2.0); HEMATOCRIT 40.8 % (32.4-45.2); HEMOGLOBIN 14.1 GM/dL (10.7-15.3); LYMPH % 28.8 % (8-40); MCH 28.4 pg (25.7-33.7); MCHC 34.5 g/dl (32.0-36.0); MEAN CELL VOLUME 82.3 fl (80-96); MEAN PLT VOLUME 7.2 fl (7.5-11.1); MONO % 3.6 % (3.8-10.2); NEUT % 64.8 % (42.8-82.8); PLATELET COUNT 352 K/MM3 (134-434); RBC 4.96 M/mm3 (3.60-5.2); RDW 14.2 % (11.6-15.6); WHITE BLOOD COUNT 10.1 K/mm3 (4.0-10.0)
--- NOTE | 2020-05-13 12:52 | PDOC ---
History of Present Illness - General Chief Complaint: Back Pain Stated Complaint: BACK PAIN Time Seen by Provider: 05/13/20 11:27 History Source: Patient Exam Limitations: No Limitations Past History - Travel History Traveled outside of the country in the last 30 days: No Close contact w/someone who was outside of country & ill: No - Medical History Allergies/Adverse Reactions: Allergies Allergy/AdvReac Type Severity Reaction Status Date / Time No Known Allergies Allergy Verified 05/13/20 11:23 Home Medications: Ambulatory Orders Glipizide [Glucotrol -] 10 mg PO BID 01/27/17 metFORMIN HCL [Glucophage -] 500 mg PO BID 01/27/17 Metoclopramide HCl [Reglan] 10 mg PO TID PRN #20 tablet 03/28/18 Insulin (Novolog) [Novolog -] See Protocol SQ TIDCM 10/17/19 Simvastatin [Zocor] 20 mg PO HS 10/17/19 Enalapril Maleate [Vasotec] 10 mg PO DAILY 11/10/19 traZODone HCL [Trazodone HCl] 100 mg PO HS 11/10/19 Famotidine [Pepcid -] 20 mg PO DAILY #30 tablet 11/11/19 Insulin Glargine,Hum.rec.anlog [Lantus (10mL VIAL) -] 50 units SQ BID #7 vial 11/11/19 Liraglutide [Victoza -] 1.8 mg SQ DAILY@0700 #1 box 11/11/19 Ondansetron [Zofran *Odt*] 4 mg SL TID #21 od.tablet 03/06/20 Cyclobenzaprine HCl [Flexeril -] 10 mg PO HS #10 tablet 05/13/20 Ibuprofen 800 mg PO TID #30 tablet 05/13/20 Anemia: No Asthma: No Cancer: No Cardiac Disorders: No CVA: No COPD: No CHF: No Dementia: No Diabetes: Yes (type 2) GI Disorders: No Disorders: No HTN: Yes Hypercholesterolemia: Yes Liver Disease: No Seizures: No Thyroid Disease: No - Surgical History Abdominal Surgery: Yes Appendectomy: No Cardiac Surgery: No Cholecystectomy: Yes Lung Surgery: No Neurologic Surgery: No Orthopedic Surgery: No - Reproductive History Is Patient Now?: No Therapeutic (s) & number: No - Immunization History Td Vaccination: Yes Immunization Up to Date: Yes - Psycho-Social/Smoking History Smoking Status: No Smoking History: Never smoked Years of Tobacco Use: 0 Have you smoked in the past 12 months: No Number of Cigarettes Smoked Daily: 1 Cigars Per Day: 0 Information on smoking cessation initiated: No - Substance Abuse Hx (Audit-C & DAST Scrn) How often the patient has a drink containing alcohol: Never Score: In Men: 4 or > Positive; In Women: 3 or > Positive: 0 Screen Result (Pos requires Nsg. Audit-10AR): Negative In the last yr the pt used illegal drug/Rx for NonMed reason: No Score: Yes response is considered Positive: 0 Screen Result (Positive result requires Nsg. DAST-10): Negative Review of Systems - Review of Systems Able to Perform ROS?: Yes Comments:: 05/13/20 12:53 CONSTITUTIONAL: Absent: fever, chills, diaphoresis, generalized weakness, malaise, loss of appet ite HEENT: Absent: rhinorrhea, nasal congestion, throat pain, throat swelling, difficulty swallowing, mouth swelling, ear pain, eye pain, visual Changes CARDIOVASCULAR: Absent: chest pain, loss of consciousness, palpitations, irregular heart rate, peripheral edema RESPIRATORY: Absent: cough, shortness of breath, dyspnea with exertion, orthopnea, wheezing, stridor, hemoptysis GASTROINTESTINAL: Present: Abdominal pain, nausea Absent: abdominal pain, abdominal distension, nausea, vomiting, diarrhea, constipation, melena, hematochezia GENITOURINARY: Present: Flank pain Absent: dysuria, frequency, urgency, hesitancy, hematuria, flank pain, genital pain MUSCULOSKELETAL: Absent: myalgia, arthralgia, joint swelling SKIN: Absent: rash, itching, pallor HEMATOLOGIC/IMMUNOLOGIC: Absent: easy bleeding, easy bruising, lymphadenopathy, frequent infections ENDOCRINE: Absent: unexplained weight gain, unexplained weight loss, heat intolerance, cold intolerance NEUROLOGIC: Absent: headache, focal weakness or paresthesias, dizziness, unsteady gait, seizure, mental status changes, bladder or bowel incontinence PSYCHIATRIC: Absent: anxiety, depression, suicidal or homicidal ideation, hallucinations. Is the patient limited Bulgarian proficient: No *Physical Exam - Vital Signs Last Vital Signs Temp Pulse Resp BP Pulse Ox 98.3 F 97 H 19 144/86 96 05/13/20 11:18 05/13/20 11:18 05/13/20 11:18 05/13/20 11:18 05/13/20 11:18 - Physical Exam 05/13/20 12:55 GENERAL: Well developed, well nourished. Awake and alert. No acute distress. HEENT: Normocephalic, atraumatic. PERRLA, EOMI. No conjunctival pallor. Sclera are non- icteric. Moist mucous membranes. Oropharynx is clear. NECK: Supple. Full ROM. No JVD. Carotid pulses 2+ and symmetric, without bruits. No thyromegaly. No lymphadenopathy. CARDIOVASCULAR: Regular rate and rhythm. No murmurs, rubs, or gallops. Distal pulses are 2+ and symmetric. PULMONARY: No evidence of respiratory distress. Lungs clear to auscultation bilaterally. No wheezing, rales or rhonchi. ABDOMINAL: Diffuse abdominal pain without focal deficits. Soft. Non-distended. No rebound or guarding. No organomegaly. Normoactive bowel sounds. MUSCULOSKELETAL Right-sided CVA tenderness. Tenderness palpation of the thoracic spine T8-T12. Bilaterally. Negative straight leg raise testing. Normal range of motion at all joints. No bony deformities or tenderness. No CVA tenderness. EXTREMITIES: No cyanosis. No clubbing. No edema. No calf tenderness. SKIN: Warm and dry. Normal capillary refill. No rashes. No jaundice. NEUROLOGICAL: Alert, awake, appropriate. Cranial nerves 2-12 intact. No deficits to light touch and temperature in face, upper extremities and lower extremities. No motor deficits in the in face, upper extremities and lower extremities. Normoreflexic in the upper and lower extremities. Normal speech. Toes are down-going bilaterally. Gait is normal without ataxia. PSYCHIATRIC: Cooperative. Good eye contact. Appropriate mood and affect. ED Treatment Course - LABORATORY CBC & Chemistry Diagram: 05/13/20 11:50 05/13/20 11:50 - ADDITIONAL ORDERS Additional order review: 05/13/20 11:50 RBC 4.96 MCV 82.3 MCHC 34.5 RDW 14.2 MPV 7.2 L Neutrophils % 64.8 Lymphocytes % 28.8 D Monocytes % 3.6 L Eosinophils % 2.0 D Basophils % 0.8 - Medications Given in the ED: ED Medications Discontinued Medications Generic Name Dose Route Start Last Admin Trade Name Freq PRN Reason Stop Dose Admin Acetaminophen 1,000 mg 05/13/20 12:01 05/13/20 12:11 Ofirmev Injection - IVPB 05/13/20 12:02 1,000 mg ONCE ONE Administration Medical Decision Making - Medical Decision Making 05/13/20 19:20 Patient is a 44-year-old female with past medical history of insulin-dependent diabetes, who presents to the ER today for back pain and abdominal pain starting on . She states that the pain is worse with movement. She denies dysuria or hematuria, nausea vomiting and diarrhea. 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 She states the pain is currently a 10 out of 10. Denies numbness and tingling and weakness to the lower extremities, gait changes, saddle anesthesia and bladder bowel incontinence. A/P: Low back pain On exam patient does have right-sided CVA tenderness as well as midline thoracic pain. Patient also has diffuse abdominal pain. Patient is a broad differential diagnosis including not limited to musculoskeletal strain, Sawyer, UTI, gallbladder pathology, kidney stone. Basic labs, urine CT scan ordered Glucose critically high at 444. 10 of insulin given repeat sugar 300. 2 L of fluid also given. CT shows no acute pathology. Likely musculoskeletal strain. Valium and Toradol given with relief of symptoms. Discharge home I discussed the physical exam findings, ancillary test results and final diagnoses with the patient. I answered all of the patient's questions. The patient was satisfied with the care received and felt comfortable with the discharge plan and treatment plan. The Patient agrees to follow up with the primary care physician/specialist within 24-72 hours. Return precautions were given. Discharge - Discharge Information Problems reviewed: Yes Clinical Impression/Diagnosis: Back pain Qualifiers: Back pain location: low back pain Chronicity: acute Back pain laterality: bilateral Sciatica presence: without sciatica Qualified Code(s): M54.5 - Low back pain Condition: Stable Disposition: HOME - Admission No - Additional Discharge Information Prescriptions: Cyclobenzaprine HCl [Flexeril -] 10 mg PO HS #10 tablet Ibuprofen 800 mg PO TID #30 tablet - Follow up/Referral Referrals: Nalini Alcocer MD [Primary Care Provider] - - Patient Discharge Instructions Patient Printed Discharge Instructions: DI for Thoracic Back Pain Additional Instructions: You have low back pain due to a muscle spasm. Please take ibuprofen 800 mg 3 times a day not to exceed 3000 mg a day. You were also prescribed Flexeril. Please take this medication every 8 hours for the first day. Then take the medication before you go to bed. Do not drive after taking this medication as it may make you sleepy. You may use warm compresses on your back to help with her symptoms. You may also purchase salon pause 4% lidocaine patches and put them on the area. Your CAT scan was normal today and did not show any acute pathology. Your urine was negative for infection.Please follow-up with your primary care doctor. If your symptoms do not resolve in 3-5 days, follow-up with orthopedics. A referral has been provided for you. Return to the emergency department if you have worsening back pain, bladder or bowel incontinence, numbness and tingling in her legs, changes in the way you walk, or any new or worsening symptoms. - Post Discharge Activity Work/Back to School Note: Back to Work
[2020-05-13 13:24] LABS: BILIRUBIN,TOTAL 0.8 mg/dL (0.2-1); BLOOD UREA NITROGEN 9.7 mg/dL (7-18); CALCIUM 9.4 mg/dL (8.5-10.1); CREATININE 0.8 mg/dL (0.55-1.3); POTASSIUM 5.3 mmol/L (3.5-5.1); TOT PROT 8.1 g/dl (6.4-8.2)
[2020-05-13] MEDS ORDERED: INSULIN REGULAR HUMAN 100 UNITS/ML *VIAL IVPUSH ONE (13:33)
[2020-05-13 13:53] LABS: PH,URINE 6.5 (5.0-8.0); URINE APPEARANCE CLEAR; URINE BILIRUBIN NEGATIVE (NEGATIVE); URINE COLOR YELLOW; URINE GLUCOSE (UA) 3+ (NEGATIVE); URINE KETONE TRACE (NEGATIVE); URINE LEUK ESTERASE NEGATIVE (NEGATIVE); URINE NITRITE NEGATIVE (NEGATIVE); URINE PROTEIN NEGATIVE (NEGATIVE); URINE UROBILINOGEN 0.2 mg/dL (0.2-1.0)
[2020-05-13] MEDS ORDERED: INSULIN REGULAR HUMAN 100 UNITS/ML *VIAL ONE (13:54)
[2020-05-13] MEDS ORDERED: diazePAM 2 MG TABLET PO ONE (15:53)
[2020-05-13] MEDS ORDERED: KETOROLAC TROMETHAMINE 60 MG/2 ML VIAL IVPUSH ONE (15:54)
[2020-05-13] MEDS ORDERED: diazePAM 2 MG TABLET ONE (16:07)
[2020-05-13] MEDS ORDERED: KETOROLAC TROMETHAMINE 15 MG/ML VIAL ONE (16:08)
[2020-05-13 17:10] VITALS: BP 141/93; PULSE 82
== END 2020-05-13 17:10 | disposition home or self-care (01) ==
LOC: JER 11:15
PROC: 3E033NZ Introduction of Analgesics, Hypnotics, Sedatives into Peripheral Vein, Percutaneous Approach (ICD-10-PCS; principal; 2020-05-13)
PROC: 3E013VG Introduction of Insulin into Subcutaneous Tissue, Percutaneous Approach (ICD-10-PCS; 2020-05-13)
PROC: 3E0337Z Introduction of Electrolytic and Water Balance Substance into Peripheral Vein, Percutaneous Approach (ICD-10-PCS; 2020-05-13)
DX: M54.5 Low back pain (principal)
CPT/HCPCS: 36415; 74176-TC; 80053; 81003; 82962; 83690; 85025; 87086; 96361; 96374; 96375; 99285-25; J0131

== ENCOUNTER 2020-07-19 22:32 | Emergency (ER) | payer OTHER ==
[2020-07-19 22:39] VITALS: TEMP 98.2; BMI 32.9
--- OUTSIDE RECORDS SUMMARY | 2020-07-19 22:40 | XMS ---
:1975 Author Organization [facility] Support Name Relationship Address Phone PETSMART Unavailable [address] [place] [address] UE Unavailable Unavailable Unavailable BENTLEYNORMA [address] [place] [address] BENTLEYNORMA Virgen Spouse [address] [place] [address] Re-disclosure Warning The records that you are about to access may contain information from federally- assisted alcohol or drug abuse programs. If such information is present, then the following federally mandated warning applies: This information has been disclosed to you from records protected by federal confidentiality rules (42 CFR part 2). The federal rules prohibit you from making any further disclosure of this information unless further disclosure is expressly permitted by the written consent of the person to whom it pertains or as otherwise permitted by 42 CFR part 2. A general authorization for the release of medical or other information is NOT sufficient for this purpose. The Federal rules restrict any use of the information to criminally investigate or prosecute any alcohol or drug abuse patient.The records that you are about to access may contain highly sensitive health information, the redisclosure of which is protected by Article 27-F of the [facility] Public Health law. If you continue you may haveaccess to information: Regarding HIV / AIDS; Provided by facilities licensed or operated by the [facility] Office of Mental Health; or Provided by the [facility] Office for People With Developmental Disabilities. If such information is present, then the following [facility] mandated warning applies: This information has been disclosed to you from confidential records which are protected by state law. State law prohibits you from making any further disclosure of this information without the specific written consent of the person to whom it pertains, or as otherwise permitted by law. Any unauthorized further disclosure in violation of state law may result in a fine or correction sentence or both. A general authorization for the release of medical or other information is NOT sufficient authorization for further disclosure. Insurance Providers Payer name Policy type Policy ID Covered Covered libertarian's Policy P patsy / Coverage libertarian ID relationship to [employer] ormation type novak BRIGETTE [id number] SP [id number] 700 HEALTH NON CAP [place] [id number] HEALTH NON CAP MEDICAID [id number] SP [id number] MVP EXCHANGE [id number] SP [id number] PLAN MVP MEDICAID [id number] SP [id number] HMO MVP [place] [id number] SP [id number] HMO SELF PAY SP INSURANCE MEDICAID [id number] SP [id number]
--- NOTE | 2020-07-19 23:20 | PDOC ---
Attending Attestation - Resident Resident Name: Alistair Courtney - ED Attending Attestation I have performed the following: I have examined & evaluated the patient, The case was reviewed & discussed with the resident, I agree w/resident's findings & plan - HPI HPI: SEE RESIDENT HPI - Physicial Exam PE: 07/20/20 03:33 SEE RESIDENT EXAM - Medical Decision Making 07/20/20 03:33 07/20/20 02:47 44-year-old female with history of poorly controlled type 1 diabetes with vomiting and posterior headache Patient received Reglan, Pepcid, Carafate and IV fluid 2 L bolus On reevaluation at 3:15 AM patient is feeling better, she is headache free Headache was not thunderclap in onset, not described as the worst headache of her life with no associated neck stiffness trauma or fever Abdomen is nontender She has tolerated p.o. and states she is ready to go home Patient will be advised again to follow-up with her primary care, endocrinology as well as GI as she likely has gastroparesis due to history 07/20/20 03:33 Discharge - Discharge Information Problems reviewed: Yes Clinical Impression/Diagnosis: Hyperglycemia due to diabetes mellitus Vomiting Qualifiers: Vomiting type: unspecified Vomiting Intractability: non-intractable Nausea presence: with nausea Qualified Code(s): R11.2 - Nausea with vomiting, unspecified - Follow up/Referral Referrals: Nalini Alcocer MD [Primary Care Provider] - - Patient Discharge Instructions - Post Discharge Activity
--- NOTE | 2020-07-19 23:23 | PDOC ---
History of Present Illness - General Chief Complaint: Nausea/Vomiting Stated Complaint: VOMITTING/HEADACHES Time Seen by Provider: 07/19/20 23:20 - History of Present Illness Initial Comments: 07/20/20 00:53 44yo F PMHx multiple episodes of n/v, DM, and headaches presents w/ n/v + epigastric pain since this afternoon. It started a few hours after she consumed homemade soup. She has vomited multiple times and it has been solely the contents of her stomach. The pain is epigastric with mild radiation to the back. No aggrevating or relieving factors. No fevers but endorses chills today. She also endorses a posterior COPELAND, which is not in her normal headache spot. denies vision changes. Past History - Medical History Allergies/Adverse Reactions: Allergies Allergy/AdvReac Type Severity Reaction Status Date / Time acetaminophen [From Tylenol] Allergy Swelling Verified 07/19/20 23:06 Home Medications: Ambulatory Orders Glipizide [Glucotrol -] 10 mg PO BID 01/27/17 metFORMIN HCL [Glucophage -] 500 mg PO BID 01/27/17 Metoclopramide HCl [Reglan] 10 mg PO TID PRN #20 tablet 03/28/18 Insulin (Novolog) [Novolog -] See Protocol SQ TIDCM 10/17/19 Simvastatin [Zocor] 20 mg PO HS 10/17/19 Enalapril Maleate [Vasotec] 10 mg PO DAILY 11/10/19 traZODone HCL [Trazodone HCl] 100 mg PO HS 11/10/19 Famotidine [Pepcid -] 20 mg PO DAILY #30 tablet 11/11/19 Insulin Glargine,Hum.rec.anlog [Lantus (10mL VIAL) -] 50 units SQ BID #7 vial 11/11/19 Liraglutide [Victoza -] 1.8 mg SQ DAILY@0700 #1 box 11/11/19 Ondansetron [Zofran *Odt*] 4 mg SL TID #21 od.tablet 03/06/20 Cyclobenzaprine HCl [Flexeril -] 10 mg PO HS #10 tablet 05/13/20 Anemia: No Asthma: No Cancer: No Cardiac Disorders: No CVA: No COPD: No CHF: No Dementia: No Diabetes: Yes (type 2) GI Disorders: No Disorders: No HTN: Yes Hypercholesterolemia: Yes Liver Disease: No Seizures: No Thyroid Disease: No - Surgical History Abdominal Surgery: Yes Appendectomy: No Cardiac Surgery: No Cholecystectomy: Yes Lung Surgery: No Neurologic Surgery: No Orthopedic Surgery: No - Reproductive History Is Patient Now?: No Therapeutic (s) & number: No - Immunization History Td Vaccination: Yes Immunization Up to Date: Yes - Psycho-Social/Smoking History Smoking Status: No Smoking History: Never smoked Years of Tobacco Use: 0 Have you smoked in the past 12 months: No Number of Cigarettes Smoked Daily: 1 Cigars Per Day: 0 Information on smoking cessation initiated: No - Substance Abuse Hx (Audit-C & DAST Scrn) How often the patient has a drink containing alcohol: Never Score: In Men: 4 or > Positive; In Women: 3 or > Positive: 0 Screen Result (Pos requires Nsg. Audit-10AR): Negative In the last yr the pt used illegal drug/Rx for NonMed reason: No Score: Yes response is considered Positive: 0 Screen Result (Positive result requires Nsg. DAST-10): Negative Review of Systems - Review of Systems Able to Perform ROS?: Yes Is the patient limited Slovenian proficient: No Constitutional: Yes: Chills, Diaphoresis. No: Fever, Weakness HEENTM: No: Recent change in vision, Ear Discharge Respiratory: No: Cough, Shortness of Breath Cardiac (ROS): No: Symptoms Reported ABD/GI: Yes: Constipated, Nausea, Vomiting. No: Diarrhea : No: Symptoms Reported Musculoskeletal: No: Symptoms Reported Integumentary: No: Symptoms Reported Neurological: No: Symptoms reported Endocrine: No: Symptoms Reported Hematologic/Lymphatic: No: Symptoms Reported All Other Systems: Reviewed and Negative *Physical Exam - Vital Signs Last Vital Signs Temp Pulse Resp BP Pulse Ox 98.2 F 100 H 19 180/116 H 100 07/19/20 22:36 07/19/20 22:36 07/19/20 22:36 07/19/20 22:36 07/19/20 23:10 - Physical Exam General Appearance: Yes: Nourished, Appropriately Dressed, Apparent Distress (looks uncomfortable and holding epigastrum). No: Intoxicated HEENT: positive: EOMI, TAYLOR Neck: positive: Trachea midline, Supple Respiratory/Chest: positive: Lungs Clear, Normal Breath Sounds. negative: Respiratory Distress Cardiovascular: positive: Regular Rhythm, Regular Rate, Tachycardia Gastrointestinal/Abdominal: positive: Normal Bowel Sounds, Tender (epigastrum) Musculoskeletal: positive: Normal Inspection. negative: CVA Tenderness Extremity: positive: Normal Capillary Refill, Normal Inspection Integumentary: positive: Normal Color, Warm, Clammy Neurologic: positive: Fully Oriented, Alert, Normal Response ED Treatment Course - LABORATORY CBC & Chemistry Diagram: 07/19/20 23:15 07/19/20 23:15 Discharge - Discharge Information Problems reviewed: Yes Clinical Impression/Diagnosis: Epigastric abdominal pain, Hyperglycemia due to diabetes mellitus Vomiting Qualifiers: Vomiting type: unspecified Vomiting Intractability: non-intractable Nausea presence: with nausea Qualified Code(s): R11.2 - Nausea with vomiting, unspecified Condition: Improved Disposition: HOME - Admission No - Follow up/Referral Referrals: Nalini Alcocer MD [Primary Care Provider] - - Patient Discharge Instructions Patient Printed Discharge Instructions: Go With Your Gut: When Abdominal Pain Is Something More..., DI for Nausea -- Adult, DI for Vomiting -- Adult, DI for Abdominal Pain -- Child, DI for Gastroparesis Additional Instructions: You were seen in the emergency department for abdominal pain and nausea with vomiting. We tested your blood and performed a CT scan of your head. We treated you with IV fluids and medication that resolved your symptoms. We also gave you 11 units of insulin. At this time, we believe it is safe to discharge you home. Please follow up with Dr. Nalini De Leon within 2 days. Come back to the emergency department immediately if you develop any new or worsening symptoms. - Post Discharge Activity Work/Back to School Note: Back to Work
[2020-07-19 23:37] LABS: BASO % 0.6 % (0-2.0); EOS % 1.5 % (0-4.5); HEMATOCRIT 40.2 % (32.4-45.2); HEMOGLOBIN 13.5 GM/dL (10.7-15.3); LYMPH % 28.7 % (8-40); MCH 27.8 pg (25.7-33.7); MCHC 33.7 g/dl (32.0-36.0); MEAN CELL VOLUME 82.6 fl (80-96); MEAN PLT VOLUME 6.8 fl (7.5-11.1); MONO % 5.1 % (3.8-10.2); NEUT % 64.1 % (42.8-82.8); PLATELET COUNT 318 K/MM3 (134-434); RBC 4.87 M/mm3 (3.60-5.2); RDW 14.9 % (11.6-15.6); WHITE BLOOD COUNT 10.5 K/mm3 (4.0-10.0)
[2020-07-19] MEDS ORDERED: METOCLOPRAMIDE HCL INJECTION 10 MG/2 ML VIAL IVPUSH ONE (23:49)
[2020-07-19] MEDS ORDERED: FAMOTIDINE 20 MG/50 ML IVPB 20 MG/50 ML MG IVPB ONE ×2 (23:49→23:51)
[2020-07-19] MEDS ORDERED: SODIUM CHLORIDE 0.9% 500 ML INFUS.BAG IV ONE (23:50)
[2020-07-19] MEDS ORDERED: METOCLOPRAMIDE HCL INJECTION 10 MG/2 ML VIAL ONE (23:51)
[2020-07-20 00:02] LABS: CHLORIDE 97 mmol/L (98-107); SODIUM 133 mmol/L (136-145)
[2020-07-20 00:04] LABS: CALCIUM 9.9 mg/dL (8.5-10.1)
[2020-07-20 00:05] LABS: ALBUMIN 3.8 g/dl (3.4-5.0); ANION GAP 11 MMOL/L (8-16); BLOOD UREA NITROGEN 9.4 mg/dL (7-18); CO2 25 mmol/L (21-32); GLUCOSE,RANDOM 349 mg/dL (74-106); LIPASE 82 U/L (73-393)
[2020-07-20 00:07] LABS: CREATININE 0.7 mg/dL (0.55-1.3); SGPT/ALT 32 U/L (13-61)
[2020-07-20 00:08] LABS: SGOT/AST 16 U/L (15-37)
[2020-07-20 00:09] LABS: BILIRUBIN,TOTAL 0.5 mg/dL (0.2-1); TOT PROT 7.6 g/dl (6.4-8.2)
[2020-07-20 00:10] LABS: ALK PHOS 130 U/L (45-117)
[2020-07-20] MEDS ORDERED: LACTATED RINGERS SOLUTION 1000 ML INFUS.BAG IV ONE (00:46)
[2020-07-20 00:53] LABS: VENOUS BASE EXCESS -1.2 mmol/L (-2-2); VENOUS O2 SATURATION 81.9 % (70-80); VENOUS PCO2 37.5 mmHg (38-52); VENOUS PH 7.407 (7.310-7.410)
[2020-07-20] MEDS ORDERED: SUCRALFATE 1 GM TABLET (FP) PO SCH (01:00)
[2020-07-20] MEDS ORDERED: SUCRALFATE 1 GM TABLET (FP) ONE (01:28)
[2020-07-20 01:39] VITALS: BP 132/88; PULSE 89
[2020-07-20] MEDS ORDERED: INSULIN REGULAR HUMAN 100 UNITS/ML *VIAL SQ ONE (02:46)
--- NOTE | 2020-07-20 11:48 | EKG ---
Test Reason : Blood Pressure : / mmHG Vent. Rate : 089 BPM Atrial Rate : 089 BPM P-R Int : 156 ms QRS Dur : 076 ms QT Int : 384 ms P-R-T Axes : 048 002 030 degrees QTc Int : 467 ms NORMAL SINUS RHYTHM LOW VOLTAGE QRS SEPTAL INFARCT (CITED ON OR BEFORE 19-JUL-2020) ABNORMAL ECG WHEN COMPARED WITH ECG OF 19-JUL-2020 23:23, NO SIGNIFICANT CHANGE WAS FOUND Confirmed by PENG ALLAN MD ([id number]) on 07/20/2020 11:48:12 AM Referred By: Confirmed By:PENG ALLAN MD
== END 2020-07-20 04:04 | disposition home or self-care (01) ==
LOC: JER 22:32
PROC: 3E033NZ Introduction of Analgesics, Hypnotics, Sedatives into Peripheral Vein, Percutaneous Approach (ICD-10-PCS; principal; 2020-07-19)
PROC: 3E033GC Introduction of Other Therapeutic Substance into Peripheral Vein, Percutaneous Approach (ICD-10-PCS; 2020-07-19)
DX: E11.65 Type 2 diabetes mellitus with hyperglycemia (principal); R11.2 Nausea with vomiting, unspecified
CPT/HCPCS: 36415; 70450-TC; 71045-TC-FY; 80053; 82010; 82550; 82553; 82803; 82962; 83690; 84484; 85025; 93005; 93010; 99285-25

== ENCOUNTER 2020-09-16 13:08 | Emergency (ER) | payer OTHER ==
[2020-09-16 13:43] VITALS: BP 122/89; PULSE 110; TEMP 98.3; BMI 29.9
[2020-09-16] MEDS ORDERED: KETOROLAC TROMETHAMINE 30 MG/1 ML VIAL IVPUSH ONE (14:23)
[2020-09-16] MEDS ORDERED: SODIUM CHLORIDE 1,000 ML IV STA (14:23)
[2020-09-16] MEDS ORDERED: KETOROLAC TROMETHAMINE 30 MG/1 ML VIAL ONE (14:32)
[2020-09-16] MEDS ORDERED: DEXAMETHASONE SOD PHOSPHATE 10 MG/1 ML VIAL IM ONE (15:20)
[2020-09-16] MEDS ORDERED: AZITHROMYCIN 250 MG TABLET PO ONE (15:20)
[2020-09-16] MEDS ORDERED: AZITHROMYCIN 250 MG TABLET ONE (16:51)
[2020-09-16] MEDS ORDERED: DEXAMETHASONE SOD PHOSPHATE 10 MG/1 ML VIAL ONE (16:51)
== END 2020-09-16 17:50 | disposition home or self-care (01) ==
LOC: JER 13:08
PROC: 3E0333Z Introduction of Anti-inflammatory into Peripheral Vein, Percutaneous Approach (ICD-10-PCS; principal; 2020-09-16)
PROC: 3E0337Z Introduction of Electrolytic and Water Balance Substance into Peripheral Vein, Percutaneous Approach (ICD-10-PCS; 2020-09-16)
PROC: 3E033GC Introduction of Other Therapeutic Substance into Peripheral Vein, Percutaneous Approach (ICD-10-PCS; 2020-09-16)
DX: U07.1 COVID-19 (principal)
CPT/HCPCS: 71046-TC-FY; 99285-25; C9803; J1100; U0003

== ENCOUNTER 2020-10-14 14:47 | Emergency (ER) | payer OTHER ==
[2020-10-14 15:16] VITALS: BP 150/91; PULSE 117; TEMP 97.7; BMI 30.9
[2020-10-14] MEDS ORDERED: SODIUM CHLORIDE 1,000 ML IV STA (15:33)
[2020-10-14 16:40] LABS: VENOUS BASE EXCESS -1.6 mmol/L (-2-2); VENOUS O2 SATURATION 31.5 % (70-80); VENOUS PCO2 48.9 mmHg (38-52); VENOUS PH 7.324 (7.310-7.410)
[2020-10-14 16:43] LABS: BASO % 0.7 % (0-2.0); EOS % 1.8 % (0-4.5); HEMATOCRIT 38.9 % (32.4-45.2); HEMOGLOBIN 13.1 GM/dL (10.7-15.3); LYMPH % 26.9 % (8-40); MCH 28.4 pg (25.7-33.7); MCHC 33.7 g/dl (32.0-36.0); MEAN CELL VOLUME 84.3 fl (80-96); MEAN PLT VOLUME 6.4 fl (7.5-11.1); MONO % 4.6 % (3.8-10.2); PLATELET COUNT 236 K/MM3 (134-434); RBC 4.61 M/mm3 (3.60-5.2); RDW 16.1 % (11.6-15.6); WHITE BLOOD COUNT 9.3 K/mm3 (4.0-10.0)
[2020-10-14 17:00] LABS: POTASSIUM 4.5 mmol/L (3.5-5.1)
[2020-10-14 17:01] LABS: CALCIUM 8.9 mg/dL (8.5-10.1)
[2020-10-14 17:02] LABS: ALBUMIN 3.4 g/dl (3.4-5.0); BLOOD UREA NITROGEN 5.6 mg/dL (7-18)
[2020-10-14 17:05] LABS: CREATININE 0.7 mg/dL (0.55-1.3)
[2020-10-14 17:07] LABS: BILIRUBIN,TOTAL 0.6 mg/dL (0.2-1)
[2020-10-14] MEDS ORDERED: INSULIN REGULAR HUMAN 100 UNITS/ML *VIAL SQ ONE (18:23)
== END 2020-10-14 18:52 | disposition home or self-care (01) ==
LOC: JER 14:47
PROC: 3E0337Z Introduction of Electrolytic and Water Balance Substance into Peripheral Vein, Percutaneous Approach (ICD-10-PCS; principal; 2020-10-14)
DX: U07.1 COVID-19 (principal)
CPT/HCPCS: 36415; 71046-TC-FY; 80053; 82010; 82803; 82962; 85025; 93005; 93010; 99285-25

== ENCOUNTER 2020-12-03 10:35 | Emergency (ER) | payer OTHER ==
[2020-12-03 10:45] VITALS: TEMP 98; BMI 29.2
[2020-12-03] MEDS ORDERED: FAMOTIDINE 20 MG/50 ML IVPB 20 MG/50 ML MG IVPB ONE ×2 (11:28→11:40)
[2020-12-03] MEDS ORDERED: MAG HYDROX/AL HYDROX/SIMETH 30 ML UNIT-DOSE CUP PO ONE (11:28)
[2020-12-03] MEDS ORDERED: ONDANSETRON 4 MG/2 ML VIAL IVPUSH ONE (11:28)
[2020-12-03] MEDS ORDERED: LACTATED RINGERS SOLUTION 1000 ML INFUS.BAG IV ONE (11:31)
[2020-12-03] MEDS ORDERED: MAG HYDROX/AL HYDROX/SIMETH 30 ML UNIT-DOSE CUP ONE (11:40)
[2020-12-03] MEDS ORDERED: ONDANSETRON 4 MG/2 ML VIAL ONE (11:40)
[2020-12-03 11:47] LABS: BASO % 1.2 % (0-2.0); EOS % 1.3 % (0-4.5); HEMATOCRIT 39.5 % (32.4-45.2); HEMOGLOBIN 13.7 GM/dL (10.7-15.3); LYMPH % 22.8 % (8-40); MCH 28.8 pg (25.7-33.7); MCHC 34.7 g/dl (32.0-36.0); MEAN CELL VOLUME 83.2 fl (80-96); MEAN PLT VOLUME 6.9 fl (7.5-11.1); NEUT % 69.7 % (42.8-82.8); PLATELET COUNT 359 K/MM3 (134-434); RBC 4.75 M/mm3 (3.60-5.2); RDW 14.5 % (11.6-15.6); WHITE BLOOD COUNT 5.9 K/mm3 (4.0-10.0)
[2020-12-03 11:54] LABS: PROTHROMBIN TIME (PATIENT) 12.3 SEC (9.7-13.0)
[2020-12-03 11:57] LABS: ACTIVATED PTT 32.6 SECONDS (25.2-36.5)
[2020-12-03] MEDS ORDERED: MECLIZINE HCL 25 MG TABLET (FP) PO ONE (12:17)
[2020-12-03] MEDS ORDERED: MECLIZINE HCL 25 MG TABLET (FP) ONE (12:23)
[2020-12-03 12:38] LABS: ALBUMIN 3.9 g/dl (3.4-5.0); ANION GAP 8 MMOL/L (8-16); BLOOD UREA NITROGEN 8.4 mg/dL (7-18); CALCIUM 9.8 mg/dL (8.5-10.1); CHLORIDE 99 mmol/L (98-107); CO2 27 mmol/L (21-32); GLUCOSE,RANDOM 347 mg/dL (74-106); POTASSIUM 4.1 mmol/L (3.5-5.1); SODIUM 134 mmol/L (136-145)
[2020-12-03 12:41] LABS: CREATININE 0.8 mg/dL (0.55-1.3); SGOT/AST 27 U/L (15-37); SGPT/ALT 45 U/L (13-61)
[2020-12-03 12:42] LABS: BILIRUBIN,TOTAL 0.6 mg/dL (0.2-1); TOT PROT 7.7 g/dl (6.4-8.2)
[2020-12-03 12:44] LABS: ALK PHOS 141 U/L (45-117)
[2020-12-03 12:59] LABS: LACTIC ACID 2.2 mmol/L (0.4-2.0)
[2020-12-03 13:47] VITALS: BP 133/87; PULSE 87
[2020-12-04 02:08] LABS: LIPASE 70 U/L (73-393)
== END 2020-12-03 16:47 | disposition home or self-care (01) ==
LOC: JER 10:35
PROC: 3E033GC Introduction of Other Therapeutic Substance into Peripheral Vein, Percutaneous Approach (ICD-10-PCS; principal; 2020-12-03)
PROC: 3E033GC Introduction of Other Therapeutic Substance into Peripheral Vein, Percutaneous Approach (ICD-10-PCS; 2020-12-03)
DX: R42 Dizziness and giddiness (principal); K52.0 Gastroenteritis and colitis due to radiation
CPT/HCPCS: 36415; 71045-TC-FY; 80053; 82962; 83605; 83690; 84484; 84703; 85025; 85610; 85730; 93005; 93010; 99285-25

== ENCOUNTER 2021-03-25 07:05 | Emergency (ER) | payer OTHER ==
[2021-03-25 07:19] VITALS: TEMP 98; BMI 30.2
[2021-03-25] MEDS ORDERED: MAG HYDROX/AL HYDROX/SIMETH -MYLANTA- ORAL SUSPENSION PO ONE (08:24)
[2021-03-25] MEDS ORDERED: ONDANSETRON 4 MG/2 ML VIAL IVPB ONE (08:24)
[2021-03-25] MEDS ORDERED: FAMOTIDINE 20 MG/50 ML IVPB 20 MG in PREMIX 50 IVPB ONE (08:24)
[2021-03-25] MEDS ORDERED: SODIUM CHLORIDE 1,000 ML IV ONE (08:52)
[2021-03-25] MEDS ORDERED: MAGNESIUM HYDROX 2400MG/30ML ORAL SUSPENSION 30 ML CUP ONE (08:53)
[2021-03-25] MEDS ORDERED: FAMOTIDINE 20 MG/50 ML IVPB 20 MG/50 ML MG IVPB ONE (08:54)
[2021-03-25] MEDS ORDERED: ONDANSETRON 4 MG/2 ML VIAL ONE (08:54)
[2021-03-25] MEDS ORDERED: MAG HYDROX/AL HYDROX/SIMETH 30 ML UNIT-DOSE CUP ONE (09:10)
[2021-03-25 09:32] LABS: BASO % 0.8 % (0-2.0); EOS % 1.7 % (0-4.5); HEMATOCRIT 38.5 % (32.4-45.2); HEMOGLOBIN 13.1 GM/dL (10.7-15.3); LYMPH % 28.7 % (8-40); MCH 28.4 pg (25.7-33.7); MEAN CELL VOLUME 83.5 fl (80-96); MEAN PLT VOLUME 6.9 fl (7.5-11.1); MONO % 5.1 % (3.8-10.2); NEUT % 63.7 % (42.8-82.8); PLATELET COUNT 290 10^3/uL (134-434); RBC 4.61 M/mm3 (3.60-5.2); RDW 14.2 % (11.6-15.6); WHITE BLOOD COUNT 9.3 K/mm3 (4.0-10.0)
[2021-03-25 09:45] LABS: ALBUMIN 3.5 g/dl (3.4-5.0); BLOOD UREA NITROGEN 15.8 mg/dL (7-18); CALCIUM 9.5 mg/dL (8.5-10.1)
[2021-03-25 09:48] LABS: CREATININE 0.7 mg/dL (0.55-1.3)
[2021-03-25 09:50] LABS: BILIRUBIN,TOTAL 0.6 mg/dL (0.2-1); TOT PROT 6.9 g/dl (6.4-8.2)
[2021-03-25 11:31] VITALS: BP 121/89; PULSE 83
== END 2021-03-25 11:00 | disposition home or self-care (01) ==
LOC: JER 07:05
PROC: 3E033GC Introduction of Other Therapeutic Substance into Peripheral Vein, Percutaneous Approach (ICD-10-PCS; principal; 2021-03-25)
PROC: 3E033GC Introduction of Other Therapeutic Substance into Peripheral Vein, Percutaneous Approach (ICD-10-PCS; 2021-03-25)
PROC: 3E0337Z Introduction of Electrolytic and Water Balance Substance into Peripheral Vein, Percutaneous Approach (ICD-10-PCS; 2021-03-25)
DX: K29.00 Acute gastritis without bleeding (principal)
CPT/HCPCS: 36415; 80053; 83690; 84703; 85025; 93005; 93010; 99284-25

== ENCOUNTER 2021-06-16 14:09 | Emergency (ER) | payer OTHER ==
[2021-06-16 14:29] VITALS: BP 126/84; PULSE 98; TEMP 98.9; BMI 33.3
[2021-06-16] MEDS ORDERED: SODIUM CHLORIDE 1,000 ML IV STA (14:59)
[2021-06-16] MEDS ORDERED: ONDANSETRON 4 MG/2 ML VIAL IVPUSH ONE (14:59)
[2021-06-16] MEDS ORDERED: ONDANSETRON 4 MG/2 ML VIAL ONE (15:07)
[2021-06-16 16:11] LABS: BASO % 0.9 % (0-2.0); EOS % 1.4 % (0-4.5); HEMATOCRIT 39.7 % (32.4-45.2); LYMPH % 25.9 % (8-40); MCH 29.7 pg (25.7-33.7); MCHC 35.3 g/dl (32.0-36.0); MEAN PLT VOLUME 6.8 fl (7.5-11.1); MONO % 4.5 % (3.8-10.2); NEUT % 67.3 % (42.8-82.8); PLATELET COUNT 266 10^3/uL (134-434); RBC 4.73 M/mm3 (3.60-5.2); RDW 13.9 % (11.6-15.6); WHITE BLOOD COUNT 10.6 K/mm3 (4.0-10.0)
[2021-06-16 16:30] LABS: URINE APPEARANCE TURBID; URINE BILIRUBIN NEGATIVE (NEGATIVE); URINE COLOR DK YELLOW; URINE GLUCOSE (UA) NEGATIVE (NEGATIVE); URINE KETONE 2+ (NEGATIVE); URINE LEUK ESTERASE NEGATIVE (NEGATIVE); URINE NITRITE NEGATIVE (NEGATIVE); URINE PROTEIN TRACE (NEGATIVE); URINE UROBILINOGEN 0.2 mg/dL (0.2-1.0)
[2021-06-16 16:33] LABS: HCG,QUALITATIVE URINE Negative
[2021-06-16 17:37] LABS: ALBUMIN 3.3 g/dl (3.4-5.0); BILIRUBIN,TOTAL 0.8 mg/dL (0.2-1); BLOOD UREA NITROGEN 7.8 mg/dL (7-18); CALCIUM 8.9 mg/dL (8.5-10.1); CREATININE 0.5 mg/dL (0.55-1.3); TOT PROT 6.7 g/dl (6.4-8.2)
== END 2021-06-16 18:03 | disposition home or self-care (01) ==
LOC: JER 14:09
PROC: 3E033GC Introduction of Other Therapeutic Substance into Peripheral Vein, Percutaneous Approach (ICD-10-PCS; principal; 2021-06-16)
PROC: 3E0337Z Introduction of Electrolytic and Water Balance Substance into Peripheral Vein, Percutaneous Approach (ICD-10-PCS; 2021-06-16)
DX: R50.9 Fever, unspecified (principal); J02.9 Acute pharyngitis, unspecified; R11.2 Nausea with vomiting, unspecified; R19.7 Diarrhea, unspecified; Z11.52 Encounter for screening for COVID-19
CPT/HCPCS: 36415; 80053; 81003; 83690; 84703; 85025; 87086; 87804; 99284-25; C9803; U0003; U0005

== ENCOUNTER 2021-06-28 20:33 | Emergency (ER) | payer OTHER ==
[2021-06-28 20:56] VITALS: BP 131/88; PULSE 94; TEMP 97.8; BMI 33.8
[2021-06-28] MEDS ORDERED: DIPHTH,PERTUSS(ACELL),TET 0.5 ML DISP.SYRIN IM ONE ×2 (21:44→22:11)
[2021-06-28] MEDS ORDERED: BACITRACIN 15 GM TUBE TOPICAL OINTMENT ONE (22:10)
== END 2021-06-28 22:44 | disposition home or self-care (01) ==
LOC: JERFT 20:33
PROC: 3E0234Z Introduction of Serum, Toxoid and Vaccine into Muscle, Percutaneous Approach (ICD-10-PCS; principal; 2021-06-28)
DX: S61.451A Open bite of right hand, initial encounter (principal); W54.0XXA Bitten by dog, initial encounter; Y92.9 Unspecified place or not applicable
CPT/HCPCS: 90715; 99284-25

== ENCOUNTER 2021-07-27 10:58 | Emergency (ER) | payer OTHER ==
[2021-07-27 11:11] VITALS: BMI 32.9
[2021-07-27] MEDS ORDERED: LACTATED RINGERS SOLUTION 1000 ML INFUS.BAG IV ONE (11:28)
[2021-07-27] MEDS ORDERED: METOCLOPRAMIDE HCL INJECTION 10 MG/2 ML VIAL IVPB ONE (11:28)
[2021-07-27] MEDS ORDERED: METOCLOPRAMIDE HCL INJECTION 10 MG/2 ML VIAL ONE (12:14)
[2021-07-27 12:28] LABS: VENOUS BASE EXCESS -3.7 mmol/L (-2-2); VENOUS PCO2 41.8 mmHg (38-52); VENOUS PH 7.337 (7.310-7.410)
[2021-07-27 12:29] LABS: BASO % 0.6 % (0-2.0); HEMATOCRIT 41.7 % (32.4-45.2); HEMOGLOBIN 14.2 GM/dL (10.7-15.3); LYMPH % 28.4 % (8-40); MCH 28.9 pg (25.7-33.7); MCHC 34.2 g/dl (32.0-36.0); MEAN CELL VOLUME 84.6 fl (80-96); MONO % 4.1 % (3.8-10.2); NEUT % 64.9 % (42.8-82.8); PLATELET COUNT 318 10^3/uL (134-434); RBC 4.92 M/mm3 (3.60-5.2); RDW 13.7 % (11.6-15.6); WHITE BLOOD COUNT 8.8 K/mm3 (4.0-10.0)
[2021-07-27] MEDS ORDERED: MECLIZINE HCL 25 MG TABLET (FP) PO ONE (12:37)
[2021-07-27] MEDS ORDERED: MECLIZINE HCL 25 MG TABLET (FP) ONE (12:45)
[2021-07-27 12:57] LABS: CHLORIDE 102 mmol/L (98-107); SODIUM 137 mmol/L (136-145)
[2021-07-27 12:59] LABS: ALBUMIN 3.5 g/dl (3.4-5.0); CALCIUM 9.3 mg/dL (8.5-10.1)
[2021-07-27 13:00] LABS: ANION GAP 8 MMOL/L (8-16); BLOOD UREA NITROGEN 9.5 mg/dL (7-18); CO2 27 mmol/L (21-32); GLUCOSE,RANDOM 228 mg/dL (74-106); LIPASE 77 U/L (73-393); MAGNESIUM 2.3 mg/dL (1.8-2.4)
[2021-07-27 13:02] LABS: SGPT/ALT 35 U/L (13-61)
[2021-07-27 13:03] LABS: CREATININE 0.7 mg/dL (0.55-1.3); SGOT/AST 20 U/L (15-37)
[2021-07-27 13:04] LABS: BILIRUBIN,TOTAL 0.3 mg/dL (0.2-1)
[2021-07-27 13:05] LABS: ALK PHOS 140 U/L (45-117)
[2021-07-27 13:41] LABS: PH,URINE 6.5 (5.0-8.0); URINE APPEARANCE CLEAR; URINE BILIRUBIN NEGATIVE (NEGATIVE); URINE COLOR YELLOW; URINE GLUCOSE (UA) NEGATIVE (NEGATIVE); URINE KETONE NEGATIVE (NEGATIVE); URINE LEUK ESTERASE NEGATIVE (NEGATIVE); URINE NITRITE NEGATIVE (NEGATIVE); URINE PROTEIN NEGATIVE (NEGATIVE); URINE UROBILINOGEN 0.2 mg/dL (0.2-1.0)
[2021-07-27 14:59] VITALS: BP 110/68; PULSE 72; TEMP 98.6
== END 2021-07-27 15:01 | disposition home or self-care (01) ==
LOC: JER 10:58
PROC: 3E033GC Introduction of Other Therapeutic Substance into Peripheral Vein, Percutaneous Approach (ICD-10-PCS; principal; 2021-07-27)
DX: R42 Dizziness and giddiness (principal)
CPT/HCPCS: 36415; 71045-TC-FY; 80053; 81003; 82010; 82803; 82962; 83690; 83735; 84702; 85025; 87086; 93005; 93010; 99285-25

== ENCOUNTER 2021-09-10 13:57 | Emergency (ER) | payer OTHER ==
[2021-09-10 15:08] VITALS: BP 115/86; PULSE 104; TEMP 97.7; BMI 32.0
[2021-09-11 14:07] LABS: SARS-CoV-2 NAA Not Detected (Not Detected)
== END 2021-09-10 17:55 | disposition home or self-care (01) ==
LOC: JER 13:57
DX: R05.1 Acute cough (principal); R09.81 Nasal congestion; J06.9 Acute upper respiratory infection, unspecified
CPT/HCPCS: 71046-TC-FY; 87804; 99284-25; C9803; U0003; U0005

== ENCOUNTER 2023-05-24 13:59 | Emergency (ER) | payer OTHER ==
[2023-05-24 14:06] VITALS: BMI 31.1
[2023-05-24] MEDS ORDERED: ASPIRIN 81 MG CHEWABLE TABLETS ONE ×2 (14:14→14:21)
[2023-05-24] MEDS ORDERED: HEPARIN NA (PORCINE) 5,000 UNITS/ML 1ML VIAL IVPUSH PRN ×2 (14:14)
[2023-05-24] MEDS ORDERED: HEPARIN INFUSION - 25,000 UNITS/500 ML INFUS.BAG IVPB SCH (14:15)
[2023-05-24] MEDS ORDERED: TICAGRELOR 90 MG TABLET PO ONE (14:20)
[2023-05-24] MEDS ORDERED: HEPARIN INFUSION - 25,000 UNITS/500 ML INFUS.BAG IVPB ONE (14:21)
[2023-05-24 14:28] LABS: BASO % 0.8 % (0-2.0); HEMATOCRIT 35.7 % (32.4-45.2); HEMOGLOBIN 11.8 GM/dL (10.7-15.3); LYMPH % 32.4 % (8-40); MCH 27.4 pg (25.7-33.7); MCHC 33.1 g/dl (32.0-36.0); MEAN CELL VOLUME 82.7 fl (80-96); MEAN PLT VOLUME 7.1 fl (7.5-11.1); MONO % 4.7 % (3.8-10.2); NEUT % 58.1 % (42.8-82.8); PLATELET COUNT 320 10^3/uL (134-434); RBC 4.32 M/mm3 (3.60-5.2); RDW 14.4 % (11.6-15.6); WHITE BLOOD COUNT 9.3 K/mm3 (4.0-10.0)
[2023-05-24] MEDS ORDERED: TICAGRELOR 90 MG TABLET PO SCH (14:30)
[2023-05-24 14:34] LABS: INR 1.06 (0.83-1.09); PROTHROMBIN TIME (PATIENT) 12.3 SEC (9.7-13.0)
[2023-05-24 14:36] LABS: ACTIVATED PTT 31.6 SECONDS (25.2-36.5)
[2023-05-24 14:44] LABS: POTASSIUM 3.8 mmol/L (3.5-5.1)
[2023-05-24 14:46] LABS: CALCIUM 8.7 mg/dL (8.5-10.1)
[2023-05-24 14:47] LABS: ALBUMIN 3.4 g/dl (3.4-5.0)
[2023-05-24 14:52] LABS: BILIRUBIN,TOTAL 0.6 mg/dL (0.2-1); BLOOD UREA NITROGEN 16.5 mg/dL (7-18); LACTIC ACID 5.2 mmol/L (0.4-2.0); TOT PROT 6.9 g/dl (6.4-8.2)
[2023-05-24 15:32] VITALS: PULSE 100; RESP 20
[2023-05-24 15:34] VITALS: BP 136/96; TEMP 98.1
== END 2023-05-24 16:20 | disposition short-term general hospital (02) ==
LOC: JER 13:59
PROC: 3E033NZ Introduction of Analgesics, Hypnotics, Sedatives into Peripheral Vein, Percutaneous Approach (ICD-10-PCS; principal; 2023-05-24)
DX: R07.9 Chest pain, unspecified (principal); I21.3 ST elevation (STEMI) myocardial infarction of unspecified site; I10 Essential (primary) hypertension; Z20.822 Contact with and (suspected) exposure to COVID-19
CPT/HCPCS: 0241U-QW; 36415; 71045-TC-FY; 80053; 83605; 84484; 85025; 85610; 85730; 93005; 93010; 99285-25; J1644

== ENCOUNTER 2024-05-10 12:49 | Emergency (ER) | payer OTHER ==
[2024-05-10 12:58] VITALS: BP 111/75; PULSE 60; RESP 18; TEMP 97.6; BMI 28.1
[2024-05-10] MEDS ORDERED: ONDANSETRON 4 MG/2 ML VIAL ONE (13:45)
[2024-05-10] MEDS: ONDANSETRON 4 MG/2 ML VIAL IVPB ONE (14:06)
[2024-05-10] MEDS: SODIUM CHLORIDE 0.9% 500 ML INFUS.BAG IV ONE (14:07)
[2024-05-10 14:11] LABS: BASO % 0.8 % (0-2.0); EOS % 1.1 % (0-4.5); HEMATOCRIT 39.4 % (32.4-45.2); HEMOGLOBIN 12.9 GM/dL (10.7-15.3); LYMPH % 18.7 % (8-40); MCH 25.2 pg (25.7-33.7); MCHC 32.8 g/dl (32.0-36.0); MEAN CELL VOLUME 76.8 fl (80-96); MEAN PLT VOLUME 6.5 fl (7.5-11.1); MONO % 3.8 % (3.8-10.2); NEUT % 75.6 % (42.8-82.8); PLATELET COUNT 305 10^3/uL (134-434); RBC 5.13 M/mm3 (3.60-5.2); RDW 12.5 % (11.6-15.6)
[2024-05-10 14:29] LABS: POTASSIUM 4.7 mmol/L (3.5-5.1)
[2024-05-10 14:32] LABS: ALBUMIN 4.1 g/dl (3.4-5.0); BLOOD UREA NITROGEN 19.6 mg/dL (7-18)
[2024-05-10 14:33] LABS: CALCIUM 9.5 mg/dL (8.5-10.1)
[2024-05-10 14:37] LABS: BILIRUBIN,TOTAL 0.9 mg/dL (0.2-1); TOT PROT 7.6 g/dl (6.4-8.2)
[2024-05-10] MEDS ORDERED: KETOROLAC TROMETHAMINE 15 MG/ML VIAL ONE (15:14)
[2024-05-10] MEDS: KETOROLAC TROMETHAMINE 15 MG/ML VIAL IM ONE (15:19)
== END 2024-05-10 16:06 | disposition home or self-care (01) ==
LOC: JER 12:49
PROC: 3E033GC Introduction of Other Therapeutic Substance into Peripheral Vein, Percutaneous Approach (ICD-10-PCS; principal; 2024-05-10)
PROC: 3E0133Z Introduction of Anti-inflammatory into Subcutaneous Tissue, Percutaneous Approach (ICD-10-PCS; 2024-05-10)
DX: R11.2 Nausea with vomiting, unspecified (principal); R19.7 Diarrhea, unspecified; R53.83 Other fatigue; R10.13 Epigastric pain
CPT/HCPCS: 36415; 71046-TC-FY; 80053; 83690; 84484; 84703; 85025; 96372; 96374; 99284-25

== ENCOUNTER 2025-02-28 05:28 | Day surgery (SDC) | payer OTHER ==
[2025-02-25 10:40] VITALS: BMI 31.4
[2025-02-28] MEDS ORDERED: MIDAZOLAM HCL 2 MG/2 ML SINGLE DOSE VIAL ONE (08:38)
[2025-02-28] MEDS ORDERED: PROPOFOL 20 ML ONE (08:43)
[2025-02-28] MEDS ORDERED: LIDOCAINE HCL/PF 2% SDV 5ML VIAL ONE (08:43)
[2025-02-28] MEDS: ceFAZolin SODIUM 1 GM VIAL IVPB ONE (09:07)
[2025-02-28] MEDS ORDERED: ceFAZolin SODIUM 1 GM VIAL ONE ×2 (09:07)
[2025-02-28] MEDS ORDERED: DEXAMETHASONE SOD PHOSPHATE 4 MG/1 ML VIAL ONE (09:09)
[2025-02-28] MEDS ORDERED: ONDANSETRON 4 MG/2 ML VIAL ONE (09:09)
[2025-02-28] MEDS ORDERED: oxyCODONE HCL 5 MG TABLET PO PRN (09:34)
[2025-02-28] MEDS ORDERED: ONDANSETRON 4 MG/2 ML VIAL IVPUSH PRN (09:34)
[2025-02-28] MEDS: LACTATED RINGERS SOLUTION 1,000 ML IV SCH (10:24)
[2025-02-28] MEDS: oxyCODONE HCL 5 MG TABLET PO PRN (11:38)
[2025-02-28] MEDS ORDERED: oxyCODONE HCL 5 MG TABLET ONE (11:41)
[2025-02-28 12:29] VITALS: RESP 20
[2025-02-28 12:43] VITALS: BP 135/71; PULSE 80; TEMP 97.8
== END 2025-02-28 12:53 | disposition home or self-care (01) ==
LOC: JASU-SURG 05:28
PROVIDERS: ATTEND Urology
PROC: BT1FYZZ Fluoroscopy of Left Kidney, Ureter and Bladder using Other Contrast (ICD-10-PCS; principal; 2025-02-28 09:00)
DX: N11.9 Chronic tubulo-interstitial nephritis, unspecified (principal)
CPT/HCPCS: 76000-TC-FY; 82962; 94760

== ENCOUNTER 2025-06-02 15:07 | Emergency (ER) | payer OTHER ==
[2025-06-02 15:14] VITALS: BMI 33.5
[2025-06-02 15:56] VITALS: RESP 18
[2025-06-02 16:37] LABS: ABSOLUTE IMMATURE GRANULOCYTES 0.05 x10^3/uL (0.0-0.031); BASOPHILS # 0.08 x10^3/uL (0.01-0.08); EOSINOPHIL % 4.8 % (0.7-5.8); EOSINOPHILS # 0.48 x10^3/uL (0.04-0.36); MCHC 31.7 g/dl (32.2-35.5); MEAN CELL VOLUME 77.6 fl (79.4-94.8); MEAN PLT VOLUME 8.6 fl (9.4-12.3); MONOCYTE # 0.61 x10^3/uL (0.24-0.86); MONOCYTE % 6.0 % (4.7-12.5); RDW 11.9 % (12.2-17.1)
[2025-06-02] MEDS ORDERED: ACETAMINOPHEN INJECTION 100 ML ONE (16:44)
[2025-06-02] MEDS: ACETAMINOPHEN 1000 MG/100 ML BAG IVPB ONE (16:49)
[2025-06-02] MEDS: SODIUM CHLORIDE 0.9% 500 ML INFUS.BAG IV ONE (16:49)
[2025-06-02 16:56] LABS: GLUCOSE,RANDOM 236.0 mg/dL (74-106); TOT PROT 6.2 g/dl (6.4-8.2)
[2025-06-02 16:58] LABS: CO2 21.0 mmol/L (21-32)
[2025-06-02 16:59] LABS: ALK PHOS 154.0 U/L (40-150)
[2025-06-02 17:02] LABS: CREATININE 0.91 mg/dL (0.55-1.3); SGOT/AST 28.0 U/L (5-34); SGPT/ALT 28.0 U/L (0-55)
[2025-06-02 17:23] LABS: HCV DIAGNOSTIC IN-HOUSE W/RFLX NON-REACTIVE (NONREACTIVE); HIV INTERPRETATION NEGATIVE (NEGATIVE)
[2025-06-02] MEDS ORDERED: MAGNESIUM 1GM/D5W - 1 GM/100 ML IVPB IVPB ONE (17:32)
[2025-06-02] MEDS: MAGNESIUM 1GM/D5W - 1 GM/100 ML IVPB IVPB ONE (17:42)
[2025-06-02] MEDS ORDERED: KETOROLAC TROMETHAMINE 15 MG/ML VIAL ONE (18:22)
[2025-06-02] MEDS: KETOROLAC TROMETHAMINE 15 MG/ML VIAL IVPUSH ONE (18:34)
[2025-06-02 19:45] VITALS: PULSE 61; TEMP 97.5
[2025-06-02 19:55] LABS: EPI CELLS 12 /uL (0-25.1); HYALINE CASTS 1 /uL (0-3.1); URINE APPEARANCE CLEAR; URINE BACTERIA 281 /uL (0-1359); URINE BILIRUBIN NEGATIVE (NEGATIVE); URINE COLOR YELLOW; URINE GLUCOSE (UA) NEGATIVE (NEGATIVE); URINE KETONE NEGATIVE (NEGATIVE); URINE LEUK ESTERASE TRACE (NEGATIVE); URINE NITRITE NEGATIVE (NEGATIVE); URINE PROTEIN NEGATIVE (NEGATIVE); URINE RBC 10 /uL (0-23.9); URINE UROBILINOGEN 0.2 mg/dL (0.2-1.0); URINE WBC 43 /uL (0-25.8)
[2025-06-02] MEDS ORDERED: CEPHALEXIN MONOHYDRATE 500 MG CAPSULE (UD) PO ONE (20:32)
[2025-06-02] MEDS ORDERED: CEFPODOXIME PROXETIL 200 MG TABLET PO ONE (21:00)
[2025-06-02 21:12] VITALS: BP 112/80
== END 2025-06-02 21:13 | disposition home or self-care (01) ==
LOC: JER 15:07
PROC: 3E033GC Introduction of Other Therapeutic Substance into Peripheral Vein, Percutaneous Approach (ICD-10-PCS; principal; 2025-06-02)
PROC: 3E033NZ Introduction of Analgesics, Hypnotics, Sedatives into Peripheral Vein, Percutaneous Approach (ICD-10-PCS; 2025-06-02)
PROC: 3E0333Z Introduction of Anti-inflammatory into Peripheral Vein, Percutaneous Approach (ICD-10-PCS; 2025-06-02)
DX: R30.0 Dysuria (principal); R10.30 Lower abdominal pain, unspecified
CPT/HCPCS: 36415; 71045-TC-FY; 80053; 81003; 83690; 83735; 84484; 85025; 86803; 87086; 87389; 93005; 93010; 99285-25